=== PATIENT | male | born 1975 | race Caucasian/White ===

== ENCOUNTER 2020-12-09 13:24 | Outpatient (REF) | payer MEDICAID, OTHER, SELFPAY ==
[2020-12-09 13:49] LABS: COVID-19 Test Positive (Negative)
== END 2020-12-09 13:25 | disposition home or self-care (01) ==
LOC: HO.LAB 13:24
PROVIDERS: Visit Provider Internal Medicine
DX: Z20.822 Contact with and (suspected) exposure to COVID-19 (principal)
CPT/HCPCS: 36415; 87635; C9803

== ENCOUNTER 2023-05-19 12:35 | Inpatient (IN) | payer MEDICAID, OTHER, SELFPAY ==
[2023-05-19] VITALS (15 sets, daily range): BP systolic 85–140; BP diastolic 49–68; PULSE 96–120; RESP 12–30; TEMP 36.8–37.3; O2SAT 76–100; BMI 26.1
--- NOTE | 2023-05-19 | ECG_ITS ---
Test Reason : TACHY,ANEMIC Blood Pressure : / mmHG Vent. Rate : 105 BPM Atrial Rate : 105 BPM P-R Int : 164 ms QRS Dur : 106 ms QT Int : 292 ms P-R-T Axes : 048 -15 016 degrees QTc Int : 385 ms Sinus tachycardia RSR' or QR pattern in V1 suggests right ventricular conduction delay Nonspecific T wave abnormality Abnormal ECG No previous ECGs available Referred By: Lili Stewart Electronically Signed By:PADMINI WOODRUFF MD
--- NOTE | ~2023-05-19 | CT_ITS ---
EXAMINATION: CT head/brain wo IV con CLINICAL INFORMATION: Reason for Exam fall. etoh COMPARISON: None. TECHNIQUE: Contiguous axial imaging was performed from the skull base to vertex without intravenous contrast. Sagittal and coronal reformatted images were obtained. This CT examination was performed using dose optimization techniques as appropriate, variously including the following: * Automated exposure control * Adjustment of mA and/or kV according to patient size (this includes techniques or standardized protocols for targeted exams where dose is matched to indication/reason for exam; i.e. extremities or head) Use of iterative reconstruction technique DLP: 933.16 mGy-cm FINDINGS: No acute osseous or soft tissue abnormality. The mastoid air cells and visualized portions of the paranasal sinuses are well aerated. There is no evidence of acute intracranial hemorrhage or territorial infarction. No abnormal mass effect or midline shift is seen. Drew to white matter differentiation is well preserved. No extra-axial fluid collections are identified. No hydrocephalus. No significant volume loss. Patchy periventricular and deep white matter hypoattenuation is consistent with mild small vessel ischemic changes. CT/CT head/brain wo IV con IMPRESSION: No acute intracranial abnormality including hemorrhage, mass effect, hydrocephalus, or acute territorial edematous infarction.
--- NOTE | ~2023-05-19 | CT_ITS ---
EXAMINATION: CT ABDOMEN AND PELVIS WITH CONTRAST CLINICAL INFORMATION: Reason for Exam upper and lower gi bleed COMPARISON: None. TECHNIQUE: Multidetector volumetric imaging was performed from the superior aspect of the liver through the pubic symphysis following administration of 100 mL Omnipaque 300 intravenous contrast. Sagittal and coronal reformatted images were obtained on the technologist workstation.. This CT examination was performed using dose optimization techniques as appropriate, variously including the following: *Automated exposure control *Adjustment of mA and/or kV according to patient size (this includes techniques or standardized protocols for targeted exams where dose is matched to indication/reason for exam; i.e. extremities or head) *Use of iterative reconstruction technique DLP: 527, 414 and 399 mGy-cm FINDINGS: LUNG BASES: The visualized lung bases are unremarkable. LIVER, GALLBLADDER, AND BILIARY TREE: The liver is normal in size, shape, and attenuation. No focal hepatic lesion or biliary ductal dilatation is present. The gallbladder is unremarkable with no evidence of radiopaque gallstones, gallbladder wall thickening, or obvious pericholecystic inflammatory changes. PANCREAS: Unremarkable. SPLEEN: Unremarkable. ADRENAL GLANDS: Unremarkable. KIDNEYS AND URETERS: The kidneys are normal in size, shape, and attenuation. No hydronephrosis, hydroureter, or calculi seen. No perinephric stranding. BLADDER: Unremarkable. GASTROINTESTINAL TRACT: The small and large bowel are without evidence of any active bleeding. No bowel wall thickening. No acute inflammatory changes. No diverticular disease.. Normal appendix. ABDOMINAL WALL: No significant hernia is appreciated. LYMPHOVASCULAR STRUCTURES: No lymphadenopathy. The aorta is unremarkable. PELVIC VISCERA: Unremarkable. OSSEOUS STRUCTURES: Unremarkable. Small amount of free fluid in the pelvis. CT/CT gi bleed abd pel wo/w IVcon IMPRESSION: No evidence of any active GI bleeding. No acute inflammatory changes. Nonspecific trace free fluid in pelvis.
[2023-05-19 12:56] LABS: MANUAL DIFF FLAG NO
[2023-05-19 12:59] LABS: Basophils Percent Auto 0.2 % (0-2); Imm Gran Abs Auto 0.08 X10*3/uL (0.00-0.03); Imm Gran Pct Auto 0.6 % (0.0-0.4); Lymphocytes Percent Auto 8.3 % (20-40); Mean Corpuscular HGB Conc 36.3 g/dl (31.0-36.0); Mean Corpuscular Hemoglobin 32.9 pg (27.0-33.0); Mean Corpuscular Volume 90.8 fL (80.0-98.0); Mean Platelet Volume 11.1 fL (9.4-12.4); Monocytes Absolute Auto 0.8 X10*3/uL (0.1-1.2); Monocytes Percent Auto 6.7 % (2-11); Neutrophils Absolute Auto 10.6 x10*3/uL (2.0-8.3); Neutrophils Percent Auto 84.2 % (45-73); Platelet Count 127 X10*3/uL (160-400); Red Blood Count 1.73 X10*6/uL (4.60-5.80); Red Cell Distribution Width 12.5 % (11.0-16.0); White Blood Count 12.6 X10*3/uL (4.8-10.8)
[2023-05-19 13:05] LABS: Hemoglobin 5.7 g/dl (14.0-18.0)
[2023-05-19 13:06] LABS: Hematocrit 15.7 % (42.0-52.0)
--- NOTE | 2023-05-19 13:15 | ED.GENADULT ---
HPI - General Adult General Chief complaint: General Medical Stated complaint: AMS D/T ETOH, POC 453 Time Seen by Provider: 05/19/23 13:05 Source: patient Mode of arrival: ambulatory Limitations: no limitations History of Present Illness HPI narrative: Patient comes in the emergency room complaining 3 syncopal episodes over the last couple of days. Patient states that 3 days ago patient started vomiting blood and having black bowel movements. Patient states that he drinks ?couple of beers? every day after work. Patient states that he has not been feeling hungry. Patient denies any significant abdominal pain. Patient states that over the last 2 days, sometimes when he gets up, he feels very lightheaded and has passed out. Twice yesterday, 1 today. Patient states that he does not have any headache, neck pain or any injuries from passing out. Related Data Allergies Allergy/AdvReac Type Severity Reaction Status Date / Time No Known Allergies Allergy Verified 05/19/23 13:00 Review of Systems Review of Systems: Constitutional : No Weight loss, No Fever, No Chills, No Night Sweats, No Fatigue, No Malaise ENT/Mouth : No Hearing loss, No Ear Pain, No Nasal Congestion, No Sinus Pain, No Hoarseness, No sore throat, No Rhinorrhea, No Swallowing Difficulty Eyes: No Eye Pain, No Swelling, No Redness, No Foreign Body, No Discharge, No Vision Changes Cardiovascular : No Chest Pain, No SOB, No Dyspnea on Exertion, No Orthopnea, No Edema, No Palpitations Respiratory : No Cough, No Sputum, No Wheezing, No Smoke Exposure, No Dyspnea Gastrointestinal : Complaining of nausea vomiting and diarrhea, vomiting and diarrhea black in color Genitourinary : no irregular bleeding, No Dysuria, No Urinary Frequency, No Hematuria, No Urinary Incontinence, No Urgency, No Flank Pain, No Urinary Flow Changes, No Hesitancy Musculoskeletal : No joint pain, No Myalgias, No Joint Swelling Skin : No Skin Lesions, No rash Neuro : No Weakness, No Numbness, No Paresthesias, multiple syncopal episodes Psych : No Anxiety/Panic, No Depression, No SI/HI/AH/VH, No Social Issues, Heme/Lymph: No Bruising, No Bleeding,No Lymphadenopathy Endocrine : No Polyuria, No Polydipsia, No Temperature Intolerance PMFSH Past Medical History Medical History Alcohol abuse Diabetes Social History Social History Alcohol intake: current Advance Directives: No Advance Directives Information Provided: No Physical Exam ED Vital Signs: Vital Signs - 24 hr 05/19/23 12:54 05/19/23 13:39 05/19/23 14:34 Temperature 99.1 F 98.7 F Pulse Rate 114 H 103 H 108 H Respiratory Rate 20 30 H 24 H Blood Pressure 86/50 L 109/66 85/49 L Pulse Oximetry 100 99 Oxygen Delivery Method Room Air Room Air 05/19/23 14:59 05/19/23 15:48 05/19/23 16:47 Temperature 98.9 F 98.8 F 99.0 F Pulse Rate 104 H 106 H 117 H Respiratory Rate 28 H 22 H 18 Blood Pressure 114/62 107/55 L 120/62 Pulse Oximetry 99 99 Oxygen Delivery Method Room Air Room Air BMI result Body Mass Index 26.1 Const Other: Appearance: Alert. Oriented X3. No acute distress. Eyes: Pupils equal, round and reactive to light. Scleral icterus bilateral ENT: Pharynx normal. Neck: Normal inspection. Neck supple. No lymph nodes noted. No crepitus CVS: Tachycardic, heart rate in the 130s, S1-S2 Respiratory: No respiratory distress. Breath sounds normal. No Wheezing. No rales Abdomen: Soft and nontender. No rigidity. No distention. Digital rectal exam shows black stool Skin: Skin warm and dry. Normal skin color. Normal skin turgor. Extremities: No lower extremity edema. No Lacerations. No Rash Neuro: Oriented X 3. No motor deficit. No sensory deficit. Moving all extremities. No slurred speech. CN 2 through 12 grossly intact Psych: calm, cooperative, normal affect Course Course Course Narrative: -patient arriving hypotensive tachycardic, with recent history of coffee-ground emesis and black stool, history of alcoholism, patient very likely has a GI bleed. All of patient's labs and imaging pending, fluids running. -I discussed with the patient risks versus benefits of a blood transfusion, patient agrees to have the blood transfusion and signed the consent Medications Administered Discontinued Medications Generic Name Dose Route Start Last Admin Trade Name Freq PRN Reason Stop Dose Admin Sodium Chloride 1,000 mls @ 999 mls/hr 05/19/23 13:05 05/19/23 15:39 Ns IVCONT 05/19/23 14:05 Infused .Q1H1M ONE Infusion Sodium Chloride 100 mls @ 100 mls/hr 05/19/23 13:08 05/19/23 15:39 Ns IV 05/19/23 14:07 Infused ONCE ONE Infusion Potassium Chloride 10 meq in 100 mls @ 100 mls/hr 05/19/23 13:45 05/19/23 16:47 Potassium Chloride/H20 IV 05/19/23 17:44 100 mls/hr Q1H JONAH Administration Magnesium Sulfate 2 gm in 50 mls @ 25 mls/hr 05/19/23 13:46 05/19/23 14:14 Magnesium Sulfate/H2o IV 05/19/23 15:45 25 mls/hr ONCE ONE Administration Insulin Human Regular 5 unit 05/19/23 13:35 05/19/23 14:15 Insulin Regular, Human 100 Unit/Ml 3 Ml Vial IVPUSH 05/19/23 13:36 5 unit ONCE ONE Administration Iohexol 80 ml 05/19/23 14:21 05/19/23 14:22 Iohexol 350 Mg/Ml 100 Ml Infus..Btl IV 05/19/23 14:22 80 ml ONCE ONE Administration Octreotide Acetate 50 mcg 05/19/23 13:07 05/19/23 13:27 Octreotide Acetate 100 Mcg/Ml Ampul IVPUSH 05/19/23 13:08 50 mcg ONCE ONE Administration Ondansetron HCl 4 mg 05/19/23 13:14 05/19/23 13:27 Ondansetron Hcl 4 Mg/2 Ml Vial IVPUSH 05/19/23 13:15 4 mg ONCE ONE Administration Pantoprazole Sodium 80 mg 05/19/23 13:07 05/19/23 13:27 Pantoprazole Sodium 40 Mg/10 Ml Vial IVPUSH 05/19/23 13:08 80 mg ONCE ONE Administration Medical Decision Making Medical Decision Making MDM Narrative: -my interpretation of labs: Hemoglobin 5.7, hematocrit 15.7, patient awaiting for blood transfusion. Potassium 2.7, patient will be repleted with potassium piggybacks IV, sodium 119 secondary to alcohol/beer intake. Magnesium 1.3, repleted -before we received the lab results, patient had already been receiving fluids the patient was hypotensive and tachycardic. -patient receiving blood, blood pressure improving, 107/55, heart rate 106, respirations 22, tolerating blood transfusion well -patient's chemistry was recheck, a 17:00, patient's sodium is 123. -I discussed the patient with Dr. Charles [facility], recommendations: Continue Protonix and octreotide, start ceftriaxone, possible ICU admission -I discussed the patient with Dr. Omalley from ICU and Dr. 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 05/19/23 12:53 05/19/23 16:54 Labs: Lab Results 05/19/23 05/19/23 05/19/23 Range/Units 12:53 13:04 13:17 WBC 12.6 H (4.8-10.8) X10*3/uL RBC 1.73 L (4.60-5.80) X10*6/uL Hgb 5.7 L* (14.0-18.0) g/dl Hct 15.7 L* (42.0-52.0) % MCV 90.8 (80.0-98.0) fL MCH 32.9 (27.0-33.0) pg MCHC 36.3 H (31.0-36.0) g/dl RDW 12.5 (11.0-16.0) % Plt Count 127 L (160-400) X10*3/uL MPV 11.1 (9.4-12.4) fL Immature Gran % (Auto) 0.6 H (0.0-0.4) % Neut % (Auto) 84.2 H (45-73) % Lymph % (Auto) 8.3 L (20-40) % Dickens % (Auto) 6.7 (2-11) % Eos % (Auto) 0.0 (0-4) % Baso % (Auto) 0.2 (0-2) % Lymph # (Auto) 1.0 L (1.2-4.9) X10*3/uL Dickens # (Auto) 0.8 (0.1-1.2) X10*3/uL Eos # (Auto) 0.0 (0.0-0.4) X10*3/uL Baso # (Auto) 0.0 (0.0-0.2) X10*3/uL Abs Immat Gran (auto) 0.08 H (0.00-0.03) X10*3/uL Absolute Neuts (auto) 10.6 H (2.0-8.3) x10*3/uL Absolute Nucleated RBC 0.000 (0.0-0.012) X10*3/uL Nucleated RBC % (auto) 0.0 (0.0-0.2) /100WBC PT 16.8 H (11.1-13.3) SEC INR 1.4 H (0.9-1.1) APTT 32.4 (26.0-36.4) SEC Sodium 119 L* (135-145) mmol/L Potassium 2.7 L (3.3-5.1) mmol/L Chloride 73 L (96-108) mmol/L Carbon Dioxide 23 (22-29) mmol/L Anion Gap 26 H (12-20) BUN 15 (9-16) mg/dL Creatinine 0.67 (0.5-1.4) mg/dL Estim Creat Clear Calc 137.7 Estimated GFR > 60 POC Glucose 361 H* (60-115) mg/dL Random Glucose 368 H* (60-115) mg/dL Calcium 8.0 L (8.4-10.2) mg/dL Magnesium 1.3 L* (1.6-2.6) mg/dL Total Bilirubin 2.1 H (0.0-1.0) mg/dL Direct Bilirubin 1.2 H (0.0-0.5) mg/dL AST 100 H (5-37) U/L ALT 31 (0-40) U/L Alkaline Phosphatase 121 H (39-117) U/L Troponin I High Sens 6.8 (<3.5-35.0) ng/L Total Protein 6.1 L (6.5-8.0) g/dL Albumin 2.7 L (3.5-5.0) g/dL Lipase 13 (8-78) U/L Urine Color Urine Appearance Urine pH (5.0-9.0) Ur Specific [place] (1.005-1.025) Urine Protein (Neg-Trace) mg/dL Urine Glucose (UA) (Negative) mg/dL Urine Ketones (Negative) mg/dL Urine Blood (Negative) Urine Nitrite (Negative) Ur Leukocyte Esterase (Negative) Urine RBC (0-2) /HPF Urine WBC (0-5) /HPF Ur Squamous Epith Cells (0-2) /HPF Urine Bacteria (None Seen) Hyaline Casts (0-2) /LPF Stool Occult Blood (NEGATIVE) Ethyl Alcohol 181 mg/dL Blood Type Antibody Screen Crossmatch 05/19/23 05/19/23 05/19/23 Range/Units 13:20 13:29 15:52 WBC (4.8-10.8) X10*3/uL RBC (4.60-5.80) X10*6/uL Hgb (14.0-18.0) g/dl Hct (42.0-52.0) % MCV (80.0-98.0) fL MCH (27.0-33.0) pg MCHC (31.0-36.0) g/dl RDW (11.0-16.0) % Plt Count (160-400) X10*3/uL MPV (9.4-12.4) fL Immature Gran % (Auto) (0.0-0.4) % Neut % (Auto) (45-73) % Lymph % (Auto) (20-40) % Dickens % (Auto) (2-11) % Eos % (Auto) (0-4) % Baso % (Auto) (0-2) % Lymph # (Auto) (1.2-4.9) X10*3/uL Dickens # (Auto) (0.1-1.2) X10*3/uL Eos # (Auto) (0.0-0.4) X10*3/uL Baso # (Auto) (0.0-0.2) X10*3/uL Abs Immat Gran (auto) (0.00-0.03) X10*3/uL Absolute Neuts (auto) (2.0-8.3) x10*3/uL Absolute Nucleated RBC (0.0-0.012) X10*3/uL Nucleated RBC % (auto) (0.0-0.2) /100WBC PT (11.1-13.3) SEC INR (0.9-1.1) APTT (26.0-36.4) SEC Sodium (135-145) mmol/L Potassium (3.3-5.1) mmol/L Chloride (96-108) mmol/L Carbon Dioxide (22-29) mmol/L Anion Gap (12-20) BUN (9-16) mg/dL Creatinine (0.5-1.4) mg/dL Estim Creat Clear Calc Estimated GFR POC Glucose (60-115) mg/dL Random Glucose (60-115) mg/dL Calcium (8.4-10.2) mg/dL Magnesium (1.6-2.6) mg/dL Total Bilirubin (0.0-1.0) mg/dL Direct Bilirubin (0.0-0.5) mg/dL AST (5-37) U/L ALT (0-40) U/L Alkaline Phosphatase (39-117) U/L Troponin I High Sens (<3.5-35.0) ng/L Total Protein (6.5-8.0) g/dL Albumin (3.5-5.0) g/dL Lipase (8-78) U/L Urine Color Yellow Urine Appearance Clear Urine pH 6.5 (5.0-9.0) Ur Specific [place] >= 1.030 H (1.005-1.025) Urine Protein Negative (Neg-Trace) mg/dL Urine Glucose (UA) 500 H (Negative) mg/dL Urine Ketones 15 (Negative) mg/dL Urine Blood Trace H (Negative) Urine Nitrite Negative (Negative) Ur Leukocyte Esterase Negative (Negative) Urine RBC 0-2 (0-2) /HPF Urine WBC 0-5 (0-5) /HPF Ur Squamous Epith Cells 0-2 (0-2) /HPF Urine Bacteria None Seen (None Seen) Hyaline Casts 0-2 (0-2) /LPF Stool Occult Blood POSITIVE (NEGATIVE) Ethyl Alcohol mg/dL Blood Type O Positive Antibody Screen NEGATIVE Crossmatch See Detail 05/19/23 Range/Units 16:54 WBC (4.8-10.8) X10*3/uL RBC (4.60-5.80) X10*6/uL Hgb (14.0-18.0) g/dl Hct (42.0-52.0) % MCV (80.0-98.0) fL MCH (27.0-33.0) pg MCHC (31.0-36.0) g/dl RDW (11.0-16.0) % Plt Count (160-400) X10*3/uL MPV (9.4-12.4) fL Immature Gran % (Auto) (0.0-0.4) % Neut % (Auto) (45-73) % Lymph % (Auto) (20-40) % Dickens % (Auto) (2-11) % Eos % (Auto) (0-4) % Baso % (Auto) (0-2) % Lymph # (Auto) (1.2-4.9) X10*3/uL Dickens # (Auto) (0.1-1.2) X10*3/uL Eos # (Auto) (0.0-0.4) X10*3/uL Baso # (Auto) (0.0-0.2) X10*3/uL Abs Immat Gran (auto) (0.00-0.03) X10*3/uL Absolute Neuts (auto) (2.0-8.3) x10*3/uL Absolute Nucleated RBC (0.0-0.012) X10*3/uL Nucleated RBC % (auto) (0.0-0.2) /100WBC PT (11.1-13.3) SEC INR (0.9-1.1) APTT (26.0-36.4) SEC Sodium 123 L (135-145) mmol/L Potassium 2.7 L (3.3-5.1) mmol/L Chloride 80 L (96-108) mmol/L Carbon Dioxide 25 (22-29) mmol/L Anion Gap 21 H (12-20) BUN 13 (9-16) mg/dL Creatinine 0.56 (0.5-1.4) mg/dL Estim Creat Clear Calc 164.8 Estimated GFR > 60 POC Glucose (60-115) mg/dL Random Glucose 252 H (60-115) mg/dL Calcium 7.4 L D (8.4-10.2) mg/dL Magnesium (1.6-2.6) mg/dL Total Bilirubin (0.0-1.0) mg/dL Direct Bilirubin (0.0-0.5) mg/dL AST (5-37) U/L ALT (0-40) U/L Alkaline Phosphatase (39-117) U/L Troponin I High Sens (<3.5-35.0) ng/L Total Protein (6.5-8.0) g/dL Albumin (3.5-5.0) g/dL Lipase (8-78) U/L Urine Color Urine Appearance Urine pH (5.0-9.0) Ur Specific [place] (1.005-1.025) Urine Protein (Neg-Trace) mg/dL Urine Glucose (UA) (Negative) mg/dL Urine Ketones (Negative) mg/dL Urine Blood (Negative) Urine Nitrite (Negative) Ur Leukocyte Esterase (Negative) Urine RBC (0-2) /HPF Urine WBC (0-5) /HPF Ur Squamous Epith Cells (0-2) /HPF Urine Bacteria (None Seen) Hyaline Casts (0-2) /LPF Stool Occult Blood (NEGATIVE) Ethyl Alcohol mg/dL Blood Type Antibody Screen Crossmatch Independent Interpretation I performed an independent interpretation of an: CT Scan (Interpretation of CT scan of the abdomen: No obvious GI bleed) Radiology Impression Discussion of test interpretation with radiology: I have reviewed the radiologist's reading. Radiologist Impression: FINDINGS: LUNG BASES: The visualized lung bases are unremarkable. LIVER, GALLBLADDER, AND BILIARY TREE: The liver is normal in size, shape, and attenuation. No focal hepatic lesion or biliary ductal dilatation is present. The gallbladder is unremarkable with no evidence of radiopaque gallstones, gallbladder wall thickening, or obvious pericholecystic inflammatory changes. PANCREAS: Unremarkable. SPLEEN: Unremarkable. ADRENAL GLANDS: Unremarkable. KIDNEYS AND URETERS: The kidneys are normal in size, shape, and attenuation. No hydronephrosis, hydroureter, or calculi seen. No perinephric stranding. BLADDER: Unremarkable. GASTROINTESTINAL TRACT: The small and large bowel are without evidence of any active bleeding. No bowel wall thickening. No acute inflammatory changes. No diverticular disease.. Normal appendix. ABDOMINAL WALL: No significant hernia is appreciated. LYMPHOVASCULAR STRUCTURES: No lymphadenopathy. The aorta is unremarkable. PELVIC VISCERA: Unremarkable. OSSEOUS STRUCTURES: Unremarkable. Small amount of free fluid in the pelvis. CT/CT gi bleed abd pel wo/w IVcon IMPRESSION: No evidence of any active GI bleeding. No acute inflammatory changes. Nonspecific trace free fluid in pelvis. Critical Care Time Critical Care Time Critical Care Time: Yes Total Critical Care Time: 120 Attestation: I have personally provided critical care time. Time includes review of lab data, radiology results, discussion with consultants, and monitoring for potential decompensation. Intervention performed as documented. Discharge Plan Discharge Clinical Impression: GI bleed, Anemia, Acute hyponatremia, Acute hypokalemia, Hypomagnesemia, Acute hyperglycemia, Syncope Patient Disposition: Admitted As Inpatient
[2023-05-19] MEDS: 0.9 % Sodium Chloride 1,000 ML 999 ML IVCONT (13:24)
[2023-05-19 13:25] LABS: OBS Int Ctl Valid YES; OBS1 POSITIVE (NEGATIVE)
[2023-05-19] MEDS: Pantoprazole Sodium 40 MG/10 ML VIAL 80 MG IVPUSH (13:27)
[2023-05-19] MEDS: ondansetron HCL 4 MG/2 ML VIAL IVPUSH (13:27)
[2023-05-19] MEDS: Octreotide Acetate 100 MCG/ML AMPUL 50 MCG IVPUSH (13:27)
[2023-05-19 13:30] LABS: INTERNATIONAL NORM RATIO 1.4 (0.9-1.1); Prothrombin Time 16.8 SEC (11.1-13.3)
[2023-05-19 13:32] LABS: Partial Thromboplastin Time 32.4 SEC (26.0-36.4)
[2023-05-19 13:35] LABS: Alanine Aminotransferase 31 U/L (0-40); Albumin Level 2.7 g/dL (3.5-5.0); Alkaline Phosphatase 121 U/L (39-117); Anion Gap 26 (12-20); Aspartate Amino Transferase 100 U/L (5-37); Bilirubin Direct 1.2 mg/dL (0.0-0.5); Bilirubin Total 2.1 mg/dL (0.0-1.0); Blood Urea Nitrogen 15 mg/dL (9-16); Carbon Dioxide 23 mmol/L (22-29); Chloride 73 mmol/L (96-108); Creatinine Clr Calc Pharmacy 137.7; Estimated Glomerular Filt Rate > 60; Glucose Random 368 mg/dL (60-115); Lipase 13 U/L (8-78); Potassium 2.7 mmol/L (3.3-5.1); Sodium 119 mmol/L (135-145); Total Protein 6.1 g/dL (6.5-8.0)
[2023-05-19 13:46] LABS: Ethanol 181 mg/dL; Magnesium 1.3 mg/dL (1.6-2.6)
[2023-05-19 13:50] LABS: Troponin-I High Sensitivity 6.8 ng/L (<3.5-35.0)
--- NOTE | 2023-05-19 13:59 | PC.NURSE ---
bilateral IV's in patient's AC. fluids infusing. pt taken to ct scan at this time. consent for blood signed
[2023-05-19] MEDS: Potassium Chloride/H20 10 MEQ/100 ML PIGGYBACK 100 MEQ IV ×6 (14:14→23:02)
[2023-05-19] MEDS: Magnesium Sulfate/H2O 2 GM/50 ML PIGGYBACK IV (14:14)
[2023-05-19] MEDS: Insulin Regular, Human 100 UNIT/ML 3 ML VIAL IVPUSH (14:15)
[2023-05-19] MEDS: iohexoL 350 MG/ML 100 ML INFUS..BTL 80 ML IV (14:22)
--- NOTE | 2023-05-19 14:26 | PC.NURSE ---
remains alert and oriented, talking on phone in room. awaiting results of ct scan. medicated per the MAR - magnesium, potassium, and fluids infusing at this time.
--- NOTE | 2023-05-19 14:51 | PC.NURSE ---
first unit of blood infusing, patient showing no signs/symptoms of distress at this time. resting quietly in room
--- NOTE | 2023-05-19 15:49 | PC.NURSE ---
pt with this RN to use commode, unsteady on feet. loose dark stool in commode, utilized urinal as well. second bag of potassium running. patient continues to rest quietly in bed with first unit infusing.
[2023-05-19 16:10] LABS: Appearance Urine Clear; Color Urine Yellow; Glucose Urine UA 500 mg/dL (Negative); Leukocyte Esterase Urine Negative (Negative); Nitrite Urine Negative (Negative); PH 6.5 (5.0-9.0); Specific Gravity - Urine >= 1.030 (1.005-1.025); UMIC TRIGGER UACC YES; Urine Blood Trace (Negative); Urine Ketones 15 mg/dL (Negative); Urine Protein Negative (Neg-Trace)
[2023-05-19 16:15] LABS: Bacteria Urine None Seen (None Seen); Hyaline Casts Urine 0-2 /LPF (0-2); RBC Urine 0-2 /HPF (0-2); Squamous Epithelial Cell Urine 0-2 /HPF (0-2); WBC Urine 0-5 /HPF (0-5)
[2023-05-19 16:43] LABS: Glucose, Whole Blood 361 mg/dL (60-115)
[2023-05-19 17:15] LABS: Anion Gap 21 (12-20); Blood Urea Nitrogen 13 mg/dL (9-16); Calcium 7.4 mg/dL (8.4-10.2); Carbon Dioxide 25 mmol/L (22-29); Chloride 80 mmol/L (96-108); Creatinine Clr Calc Pharmacy 164.8; Estimated Glomerular Filt Rate > 60; Glucose Random 252 mg/dL (60-115); Potassium 2.7 mmol/L (3.3-5.1); Sodium 123 mmol/L (135-145)
[2023-05-19] MEDS: Prochlorperazine Edisylate 10 MG/2 ML VIAL IVPUSH (19:00)
--- NOTE | 2023-05-19 19:17 | PC.NURSE ---
This Rn spoke with pharmacy regarding overdue medications and timing as potassium and blood is currently running in the two IV lines established. Pharmacy requested RN to call once those orders are complete to adjust times.
[2023-05-19 19:24] LABS: Amphetamine Screen Urine Not Detected (Not Detect); Barbiturates, Urine Not Detected (Not Detect); Benzodiazepines Screen Urine Not Detected (Not Detect); Cannabinoid Screen Urine Not Detected (Not Detect); Cocaine Screen Urine Not Detected (Not Detect); Fentanyl, urine Not Detected (Not Detect); Opiate Screen Urine Not Detected (Not Detect); Phencyclidine Screen Urine Not Detected (Not Detect)
--- NOTE | 2023-05-19 19:27 | PC.NURSE ---
second unit of blood infusing at this time, medicated per the MAR for nausea
--- NOTE | 2023-05-19 19:45 | PM.IMHP ---
History of Present Illness Date of Service: 05/19/23 Attending physician on admission: Violetta Sosa Chief Complaint: Syncopal episodes, hematemesis Pt is a Romansh-speaking 47-year-old male with a PMH significant for?insulin-dependent diabetes type 2 andHLD who presents to the ED for evaluation of syncopal episodes and vomiting blood. Patient states that symptoms began a few days ago when he started vomiting blood and having dark colored bowel movements. Patient reports 3 separate episodes of hematemesis, and having ?mixed? black and red stool. Patient has also been experiencing lightheadedness and dizziness with standing the past few days. Notes he has fallen twice yesterday and once today. Patient states he hit his head during one fall on a box that hold his change and received a small cut to the back of his head. Denies LOC. patient admits to drinking up to four Downing Lite beers daily. Denies any other alcohol use, hx of smoking, or illicit drug use. Also reports mild abdominal discomfort/tenderness. In the ED patient with temperature up to 99.1, tachycardia up to 117, tachypnea up to 30, hypotension as low as 85/49. Labs were significant for leukocytosis of 12.6, H&H 5.7/15.7, platelets 127, sodium 119, potassium 2.7, chloride 73, anion gap 26, random glucose 368, magnesium 1.3, bilirubin 2.1, direct bilirubin 1.2, AST 100, alk-phos 121, albumin 2.7. Troponin 6.8. UA negative for UTI. Stool positive for occult blood. Ethyl alcohol 181 at 13:17, otherwise tox screen negative. CT of abdomen and pelvis found no evidence of any acute GI bleeding with no and acute inflammatory changes and nonspecific trace free fluid in the pelvis. Liver is normal in size, shape, and attenuation. EKG demonstrated sinus tachycardia of [address] elevations or depressions. Pt was treated with IVF, IV Protonix, octreotide, ondansetron, potassium chloride, Mag sulfate, insulin, and prochlorperazine. Patient also transfused 2 units of PRBCs. Pt will be admitted to the hospital for treatment and further evaluation of acute blood loss anemia and multiple electrolyte abnormalities. Review of Systems Review of Systems: Hematemesis Melena/hematochezia Lightheadedness, dizziness Mild, diffuse abdominal pain PMFSH Medical History Alcohol abuse Diabetes Social History Household Members: Family Housing: House Do you presently have visiting nurse or other home services: No Alcohol intake: current Patient Tobacco Use Status: Never used Tobacco Second Hand Smoke Exposure: No Meds Allergies Allergy/AdvReac Type Severity Reaction Status Date / Time No Known Allergies Allergy Verified 05/19/23 13:00 Active Medications: Current Medications Acetaminophen (Acetaminophen 325 Mg Tablet) 650 mg PO Q6H PRN PRN Reason: Pain, Mild (Pain Scale 1-3) Atorvastatin Calcium (Atorvastatin Calcium 40 Mg Tablet) 40 mg PO DAILY JONAH Benzonatate (Benzonatate 100 Mg Capsule) 100 mg PO TID PRN PRN Reason: Cough Docusate Sodium (Docusate Sodium 100 Mg Capsule) 100 mg PO DAILY PRN PRN Reason: Constipation Octreotide Acetate 500 mcg/ (Sodium Chloride) 501 mls @ 50.1 mls/hr IVCONT .Q10H JONAH Pantoprazole Sodium 80 mg/ (Sodium Chloride) 100 mls @ 10 mls/hr IV .Q10H JONAH Potassium Chloride (Potassium Chloride/H20) 10 meq in 100 mls @ 100 mls/hr IV Q1H JONAH Stop: 05/19/23 23:29 Melatonin (Melatonin 3 Mg Tablet) 6 mg PO BEDTIME PRN PRN Reason: Insomnia Ondansetron HCl (Ondansetron Hcl 4 Mg/2 Ml Vial) 4 mg IVPUSH Q8H PRN PRN Reason: Nausea and Vomiting Pharmacy Consult (Consult Rx Etoh Phenob Im/Po) 1 each MISCELLANE ONCE PRN; Protocol PRN Reason: Consult order Phenobarbital (Phenobarbital 15 Mg Tablet) 45 mg PO BID JONAH Stop: 05/21/23 21:01 Phenobarbital (Phenobarbital 30 Mg Tablet) 30 mg PO BID JONAH Stop: 05/23/23 21:01 Phenobarbital (Phenobarbital 15 Mg Tablet) 15 mg PO DAILY JONAH Stop: 05/25/23 09:01 Phenobarbital Sodium (Phenobarbital Sodium 130 Mg/Ml Vial Im Q3hx2) 254 mg IM Q3H JONAH Stop: 05/20/23 02:01 Sodium Chloride (0.9 % Sodium Chloride Flush 3 Ml Syringe) 3 ml IVFLUSH QSHIFT [facility] Home Medications Medication Instructions Recorded Confirmed Last Taken Type atorvastatin 40 mg tablet 40 mg PO DAILY 05/19/23 05/19/23 Unknown History insulin glargine 100 unit/mL (3 52 unit subcut DAILY 05/19/23 05/19/23 Unknown History mL) subcutaneous pen (Lantus Solostar U-100 Insulin) insulin lispro 100 unit/mL See Protocol subcut BIDAC 05/19/23 05/19/23 Unknown History subcutaneous pen Physical Exam Vital Signs and Narrative: Vital Signs: Last Vital Signs Temp 99.1 F 05/19/23 19:30 Pulse 109 H 05/19/23 19:30 Resp 12 05/19/23 19:30 BP 130/63 05/19/23 19:30 Pulse Ox 99 05/19/23 16:47 O2 Del Method Room Air 05/19/23 16:47 BMI result Body Mass Index 26.1 Constitutional: Alert, in no acute distress. Mental Status: Oriented to person, place and time. Eyes: Pupils are equal, round, and reactive to light. Ear, Nose, and Throat: Oropharynx clear, mucous membranes moist. Ears and nose without deformities. Trachea midline. Head: Small superficial bleeding laceration in center of occipital lobe Respiratory: Clear to auscultation bilaterally. No wheezing, rales, or rhonchi. Cardiovascular: S1, S2, tachy. No murmurs, rubs, or gallops. Gastrointestinal: Abdomen soft, non-distended, with mild diffuse tenderness. Normal bowel sounds. Neurologic: Cranial nerves II-XII are grossly intact bilaterally. No focal neurological deficits. Moves all extremities spontaneously. Upper extremity resting tremors noted. Skin: No rashes or lesions noted. Musculoskeletal: No cyanosis or clubbing. Extremities: No edema. Psychiatric: Normal mood and affect. Results Labs 05/20/23 11:25 05/20/23 11:25 Labs: Laboratory Results - last 24 hr 05/19/23 05/19/23 05/19/23 12:53 13:04 13:17 MCV 90.8 MCH 32.9 MCHC 36.3 H RDW 12.5 Plt Count 127 L MPV 11.1 Immature Gran % (Auto) 0.6 H Neut % (Auto) 84.2 H Lymph % (Auto) 8.3 L [place] % (Auto) 6.7 Eos % (Auto) 0.0 Baso % (Auto) 0.2 Lymph # (Auto) 1.0 L [place] # (Auto) 0.8 Eos # (Auto) 0.0 Baso # (Auto) 0.0 Abs Immat Gran (auto) 0.08 H Absolute Neuts (auto) 10.6 H Absolute Nucleated RBC 0.000 Nucleated RBC % (auto) 0.0 PT 16.8 H INR 1.4 H APTT 32.4 Anion Gap 26 H Estim Creat Clear Calc 137.7 Estimated GFR > 60 POC Glucose 361 H* Random Glucose 368 H* Osmolality Cancelled Calcium 8.0 L Magnesium 1.3 L* Total Bilirubin 2.1 H Direct Bilirubin 1.2 H AST 100 H ALT 31 Alkaline Phosphatase 121 H Total Protein 6.1 L Albumin 2.7 L Lipase 13 Urine Color Urine Appearance Urine pH Ur Specific [place] Urine Protein Urine Glucose (UA) Urine Ketones Urine Blood Urine Nitrite Ur Leukocyte Esterase Urine RBC Urine WBC Ur Squamous Epith Cells Urine Bacteria Hyaline Casts Stool Occult Blood Urine Opiates Screen Urine Fentanyl Screen Ur Barbiturates Screen Ur Phencyclidine Scrn Ur Amphetamines Screen U Benzodiazepines Scrn Urine Cocaine Screen U Marijuana (THC) Screen Ethyl Alcohol 181 Blood Type Antibody Screen Crossmatch 05/19/23 05/19/23 05/19/23 13:20 13:29 15:52 MCV MCH MCHC RDW Plt Count MPV Immature Gran % (Auto) Neut % (Auto) Lymph % (Auto) [place] % (Auto) Eos % (Auto) Baso % (Auto) Lymph # (Auto) [place] # (Auto) Eos # (Auto) Baso # (Auto) Abs Immat Gran (auto) Absolute Neuts (auto) Absolute Nucleated RBC Nucleated RBC % (auto) PT INR APTT Anion Gap Estim Creat Clear Calc Estimated GFR POC Glucose Random Glucose Osmolality Calcium Magnesium Total Bilirubin Direct Bilirubin AST ALT Alkaline Phosphatase Total Protein Albumin Lipase Urine Color Yellow Urine Appearance Clear Urine pH 6.5 Ur Specific [place] >= 1.030 H Urine Protein Negative Urine Glucose (UA) 500 H Urine Ketones 15 Urine Blood Trace H Urine Nitrite Negative Ur Leukocyte Esterase Negative Urine RBC 0-2 Urine WBC 0-5 Ur Squamous Epith Cells 0-2 Urine Bacteria None Seen Hyaline Casts 0-2 Stool Occult Blood POSITIVE Urine Opiates Screen Not Detected Urine Fentanyl Screen Not Detected Ur Barbiturates Screen Not Detected Ur Phencyclidine Scrn Not Detected Ur Amphetamines Screen Not Detected U Benzodiazepines Scrn Not Detected Urine Cocaine Screen Not Detected U Marijuana (THC) Screen Not Detected Ethyl Alcohol Blood Type O Positive Antibody Screen NEGATIVE Crossmatch See Detail 05/19/23 16:54 MCV MCH MCHC RDW Plt Count MPV Immature Gran % (Auto) Neut % (Auto) Lymph % (Auto) [place] % (Auto) Eos % (Auto) Baso % (Auto) Lymph # (Auto) [place] # (Auto) Eos # (Auto) Baso # (Auto) Abs Immat Gran (auto) Absolute Neuts (auto) Absolute Nucleated RBC Nucleated RBC % (auto) PT INR APTT Anion Gap 21 H Estim Creat Clear Calc 164.8 Estimated GFR > 60 POC Glucose Random Glucose 252 H Osmolality Calcium 7.4 L D Magnesium Total Bilirubin Direct Bilirubin AST ALT Alkaline Phosphatase Total Protein Albumin Lipase Urine Color Urine Appearance Urine pH Ur Specific [place] Urine Protein Urine Glucose (UA) Urine Ketones Urine Blood Urine Nitrite Ur Leukocyte Esterase Urine RBC Urine WBC Ur Squamous Epith Cells Urine Bacteria Hyaline Casts Stool Occult Blood Urine Opiates Screen Urine Fentanyl Screen Ur Barbiturates Screen Ur Phencyclidine Scrn Ur Amphetamines Screen U Benzodiazepines Scrn Urine Cocaine Screen U Marijuana (THC) Screen Ethyl Alcohol Blood Type Antibody Screen Crossmatch Imaging Radiologist's Impressions: Impressions Abdomen/Pelvis CT 05/19/23 14:23 IMPRESSION: No evidence of any active GI bleeding. No acute inflammatory changes. Nonspecific trace free fluid in pelvis. Assessment and Plan (1) Acute hyperglycemia: Status: Acute (2) Hypomagnesemia: Status: Acute (3) Acute hyponatremia: Status: Acute (4) Acute hypokalemia: Status: Acute (5) Anemia: Status: Acute (6) GI bleed: Status: Acute Plan Pt is a Romansh-speaking 47-year-old male with a PMH significant for?insulin-dependent diabetes type 2 andHLD who presents to the ED for evaluation of syncopal episodes and vomiting blood. Pt will be admitted to the hospital for treatment and further evaluation of acute blood loss anemia and multiple electrolyte abnormalities. Acute blood loss anemia secondary to GI bleed Patient with hematemesis, melena/hematochezia x 2-3 days Patient's H&H 5.7/15.7, platelets 127, hypotensive as low as 85/49, stool positive for occult blood Patient given IVF, Protonix, octreotide, ondansetron, and transfuse 2 units PRBCs in ED Will place on octreotide drip, IV Protonix drip NPO GI consult ICU consult for care level Repeat CBC later tonight, follow tomorrow Hyponatremia Patient's sodium initially 119 with repeat 4 hours later of 123 Patient will be made NPO Will get serum osmolality, urine osmolality, urine sodium, urine electrolytes Follow BMP Hypokalemia Patient's potassium 2.7 with repeat 4 hours later of 2.7 Patient received 40 mEq IV potassium in ED Will give additional 40 mEq potassium IV Follow BMP Hypomagnesemia Patient's magnesium 1.3 at time of presentation Patient given Mag sulfate 2 g in ED Trend Mag Syncopal episodes with head strike Patient with small superficial laceration to the back of his skull Will get CT of head and brain Hyperglycemia Patient's random glucose 368 at time of presentation Given insulin in ED Will place on sliding scale insulin Hold long-acting insulin for now as patient is NPO, resume Lantus as warranted Diabetic diet once no longer NPO Leukocytosis WBC 12.6 time of presentation Likely reactionary acute anemia, not due to sepsis or active infection Tachycardia and tachypnea secondary to acute blood loss anemia, not sepsis or active infection Acute alcohol withdrawal Patient with daily alcohol intake upper extremity resting tremors noted Patient's alcohol level 181 at time of presentation Patient will be placed on phenobarb protocol CIWA HLD Hold statin d/t transaminitis Full Code Attending:?Dr. Sosa DVT Prophylaxis: Penumatic boots Pt will require a hospitalization of at least two nights for treatment of?acute blood loss anemia due to GI bleed and multiple electrolyte abnormalities. Patient require telemetry monitoring, close monitoring of labs, blood transfusion, electrolyte replenishment, and specialist consultation. Time Spent With Patient Time: Total time managing care of this patient today ____ minutes. Quality Stroke Does the patient have a stroke diagnosis?: No VTE Prior VTE?: No VTE Risk Level:: Medical - moderate - high VTE Device Contraindication: N/A - Device Ordered VTE Drug Contraindication: Treatment Not Indicated
[2023-05-19 19:50] LABS: Osmolality Urine 443 mosm/kg (373-1093)
[2023-05-19 20:03] LABS: Potassium Urine Random 17.9 mmol/L; Sodium Urine Random < 20.0 mmol/L
--- NOTE | 2023-05-19 20:08 | PC.NURSE ---
Report and handoff given to JORGE Zeng
--- NOTE | 2023-05-19 20:18 | PC.NURSE ---
vss and up to date. 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 pharmacy delivered medication for pt but unable to administer d/t other meds being transfused at this time. will administer/change time of meds when able. pt c/o 05/09 abdominal pain at this time. respirations even and unlabored. call walters placed within reach.
[2023-05-19 21:06] LABS: Chloride Urine Random < 20.0 mmol/L
[2023-05-19] MEDS: cefTRIAXone sodium 1 GM in 0.9 % Sodium Chloride 50 ML IV (21:07)
[2023-05-19] MEDS: PHENobarbitaL sodium 130 MG/ML IM ONCE 339 MG IM (21:08)
--- NOTE | 2023-05-19 21:10 | PC.NURSE ---
pt medicated per provider order.
--- NOTE | 2023-05-19 21:32 | PM.EVENT ---
Event Note Date of Service: 05/19/23 Event Note: Nursing reported seizure-like activity that lasted for approximately 30 seconds. Likely alcohol withdrawal seizure. Ordered Ativan Time Spent With Patient Time: Total time managing care of this patient today ____ minutes.
[2023-05-19] MEDS: LORazepam 2 MG/ML VIAL 1 MG IVPUSH (21:38)
[2023-05-19] MEDS: Phytonadione (Vit K1) 10 MG in 0.9 % Sodium Chloride 50 ML 51 MG IV (21:39)
[2023-05-19] MEDS: Pantoprazole Sodium 80 MG in 0.9 % Sodium Chloride 80 ML 10 MG IV (21:45)
[2023-05-19] MEDS: Octreotide Acetate 500 MCG in 0.9 % Sodium Chloride 500 ML 50.1 MCG IVCONT (21:53)
--- NOTE | 2023-05-19 21:59 | PC.NURSE ---
Late entry: Several infusions ordered noted to be several hours behind. This RN at bedside assuming care, contacting Laron and pharmacy regarding ordered medications. Blood infusing through [facility]. Pt medicated with first dose of Pheno and Rocephin by Azucena PATEL. Two additional IVs placed. Vit K, Potassium, Protonix and Octreotide infusing per SEP. Pharmacy contacted as an additional 4 bags of Potassium were ordered, per pharm they verified with Laron and he stated he wanted the additional 4 bags as his repeat Potassium level remained low. While this RN was at bedside medicating, pt noted to have SZ like activity. Hospitalist contacted, no SZ hx noted. SZ like activity lasting approx 30 seconds. Per Laron, no SZ hx, assuming r/t ETOH w/d, medicated with 1 mg of Ativan per SEP. VSS at this time, pt resting in bed, asleep, eyes closed. Continue to monitor.
--- NOTE | 2023-05-19 22:02 | W.MHC.ACPN ---
Advanced Care Planning Note Advanced Care Planning Note Discussed with: patient Time spent (in minutes): 20 Narrative: Case discussed with my attending Dr Omalley and Dr Sosa requesting hospitalist. Patient seen at bedside in the ER room 9, chart reviewed in detail and labs; images Pending. Patient is hemo dynamically stable despite of anemia, has received IVF and 1 u PRBC, he does not appear to be in distress and I do no suspect decompensation, however if this was to happen we will be happy to intervine and to treat the patient in the ICU if that was to happen and the patient really needed ICU care at that time. Currently the care, workup and treatment should continue as per Internal Medicine Team descretion, this was related in person to Dr Sosa. Total time spend reviewing case, chart, labs and talking breifly to the patient at bedside 20 min. CODE FULL CODE Per patients wish and he appears fully competent as I spoke to him in Peruvian. Problems Discussed (1) Acute hyperglycemia: (2) Hypomagnesemia: (3) Acute hyponatremia: (4) Acute hypokalemia: (5) Anemia: (6) GI bleed:
--- NOTE | 2023-05-19 22:08 | PC.NURSE ---
Pt noted to desat, hospitalist notified. Pt moved into an upright position, wakes easily. O2 applied via NC @ 3 lpm. O2 sat increasing to 100%.
[2023-05-19 22:55] LABS: Glucose, Whole Blood 267 mg/dL (60-115)
[2023-05-19] MEDS: Insulin Lispro 100 UNIT/ML 3 ML VIAL SUBCUT (22:55)
--- NOTE | 2023-05-19 23:27 | PC.NURSE ---
Second unit of blood infused, patient tolerated well. VSS. CIWA score 7, phenobarb administered per MAR.
[2023-05-19] MEDS: PHENobarbitaL sodium 130 MG/ML VIAL IM Q3Hx2 254 MG IM (23:31)
--- NOTE | 2023-05-19 23:48 | PC.NURSE ---
Third unit of PRBC infusing, no transfusion reactions noted. Patient is resting comfortably with his eyes closed. VSS. Call walters within patient's reach.
[2023-05-20] VITALS (20 sets, daily range): BP systolic 97–122; BP diastolic 51–70; PULSE 82–110; RESP 18–26; TEMP 36.5–37.6; O2SAT 90–100
[2023-05-20] MEDS: Potassium Chloride/H20 10 MEQ/100 ML PIGGYBACK 100 MEQ IV ×6 (00:17→13:37)
--- NOTE | 2023-05-20 01:23 | PC.NURSE ---
VSS. Patient is asleep. Call walters within patient's reach.
[2023-05-20] MEDS: 0.9 % Sodium Chloride Flush 3 ML SYRINGE IVFLUSH ×3 (02:53→20:35)
[2023-05-20] MEDS: PHENobarbitaL sodium 130 MG/ML VIAL IM Q3Hx2 254 MG IM (03:10)
[2023-05-20 07:44] LABS: Mean Corpuscular HGB Conc 36.7 g/dl (31.0-36.0); Mean Corpuscular Hemoglobin 32.6 pg (27.0-33.0); Mean Corpuscular Volume 88.9 fL (80.0-98.0); Mean Platelet Volume 10.7 fL (9.4-12.4); Platelet Count 99 X10*3/uL (160-400); Red Cell Distribution Width 13.5 % (11.0-16.0); White Blood Count 8.5 X10*3/uL (4.8-10.8)
[2023-05-20 07:45] LABS: Hemoglobin 8.8 g/dl (14.0-18.0)
[2023-05-20 07:45] LABS: Glucose, Whole Blood 264 mg/dL (60-115)
[2023-05-20] MEDS: Octreotide Acetate 500 MCG in 0.9 % Sodium Chloride 500 ML 50.1 MCG IVCONT ×2 (07:53→17:51)
[2023-05-20] MEDS: Pantoprazole Sodium 80 MG in 0.9 % Sodium Chloride 80 ML 10 MG IV (07:54)
--- NOTE | 2023-05-20 07:55 | PC.NURSE ---
Pt is alert/oriented. Denies pain. No active bleeding noted. New bag for Ocretotide and Protonix started. Pt ask to ask and utilize urinal, voided 700ml of jm colored urine. NSR on monitor. Skin is pink warm and dry. Upon first entering pt room pt speech clear, however while readjusting in bed pt appeared with garbled speech and ?right sided facial droop while no unilateral weakness noted on exam. Dr Sosa notified and to bedside for evaluation as pt sx appeared to be improving. Pt now with clear speech and facial droop not noted. POC 260s, covered. Pt NPO but maintained POC from last night in 260s.
[2023-05-20 07:56] LABS: VBG Base Excess 21.3 mmol/L; VBG HCO3 45 mmol/L (22-26); VBG pCO2 45 mmHg; VBG pO2 77 mmHg
[2023-05-20 08:01] LABS: Venous Blood Gas Refer to POC result
--- NOTE | 2023-05-20 08:04 | PHA.MEDREC ---
Pharmacy Consult ? Medication Reconciliation Pharmacy has completed the medication reconciliation.
[2023-05-20] MEDS: Insulin Lispro 100 UNIT/ML 3 ML VIAL SUBCUT ×3 (08:09→20:32)
[2023-05-20] MEDS: PHENobarbitaL 15 MG TABLET 45 MG PO ×2 (08:10→20:32)
[2023-05-20 08:48] LABS: Anion Gap 15 (12-20); Blood Urea Nitrogen 11 mg/dL (9-16); Calcium 7.2 mg/dL (8.4-10.2); Carbon Dioxide 30 mmol/L (22-29); Chloride 83 mmol/L (96-108); Creatinine Clr Calc Pharmacy 146.5; Estimated Glomerular Filt Rate > 60; Glucose Random 247 mg/dL (60-115); Potassium 2.9 mmol/L (3.3-5.1); Sodium 125 mmol/L (135-145)
[2023-05-20 09:04] LABS: Anion Gap 15 (12-20); Beta-Hydroxybutyrate 0.62 mmol/L (0.02-0.27); Blood Urea Nitrogen 11 mg/dL (9-16); Calcium 7.2 mg/dL (8.4-10.2); Carbon Dioxide 30 mmol/L (22-29); Chloride 83 mmol/L (96-108); Creatinine Clr Calc Pharmacy 148.8; Estimated Glomerular Filt Rate > 60; Glucose Random 247 mg/dL (60-115); Magnesium 1.3 mg/dL (1.6-2.6); Potassium 2.9 mmol/L (3.3-5.1); Sodium 125 mmol/L (135-145)
[2023-05-20 09:06] LABS: Osmolality, Serum 270 mosm/kg (281-305)
[2023-05-20 09:17] LABS: MANUAL DIFF FLAG NO
[2023-05-20 09:18] LABS: Basophils Absolute Auto 0.1 X10*3/uL (0.0-0.2); Basophils Percent Auto 0.6 % (0-2); Eosinophils Percent Auto 0.3 % (0-4); Imm Gran Abs Auto 0.04 X10*3/uL (0.00-0.03); Imm Gran Pct Auto 0.5 % (0.0-0.4); Lymphocytes Absolute Auto 1.1 X10*3/uL (1.2-4.9); Monocytes Absolute Auto 0.5 X10*3/uL (0.1-1.2); Neutrophils Absolute Auto 6.9 x10*3/uL (2.0-8.3); Neutrophils Percent Auto 79.6 % (45-73)
--- NOTE | 2023-05-20 09:25 | PM.GICN ---
History of Present Illness Data of Consult Service Date: 05/20/23 Requesting physician: Arti Rasheed Primary Care Provider: Unknown Physician HPI Reason for consult: GI bleed This is a 47-year-old gentleman with past medical history of diabetes, alcohol use disorder, who presented to the hospital after multiple syncopal episodes and was found to be profoundly anemic for which gastroenterology has been consulted. History was obtained from the patient with the help of historic interpreter, who states that 3 days ago, he started noticing diffuse abd cramping and discomfort with nausea. Then 2 days ago he started experiencing vomiting as well which was initially clear to green and then turned dark. Was also accompanied by black stools. Since then, he has been getting progressively lightheaded, and on the day of admission, passed out a few times when he stood up too fast. Also suffered a small laceration at the back of his head due to falling on a box. He does report drinking 4-6 beers every day. Does not take NSAIDs or blood thinners. Does not report skipping insulin but has been noticing sugars above 400 for the past 2 days. Reports no previous similar presentation. Has hx of EGD 3 years ago at [facility] which was done for abd pain with vomiting without bleeding per his report. Has never had a colo. On initial eval in ER was noted to be tachycardiac and hypotensive. Labs significant for anemia with Hb of 5.7 which has since then improved to >[address] imaging with hepatomegaly and suggestive of some degree of steatosis but no overt stigmata of advanced liver disease despite low platelets on CBC. Pt was also noted to have s/sx of DKA on presentation, AG has since closed though ketones + still. Has been resuscitated with 3u PRBC and also receiving protonix iV, octreotide gtt, and CTX. Reports abd pain, N,V better since coming in. Has not had any further episodes. Last BM was earlier this morning and green per his report. Last CIWA score of 3 around 6am. Review of Systems Review of Systems: Yes all other systems are reviewed and are negative [facility] Past Medical History Medical History Alcohol abuse Diabetes Social History Social History Household Members: Family Housing: House Do you presently have visiting nurse or other home services: No Alcohol intake: current Patient Tobacco Use Status: Never used Tobacco Second Hand Smoke Exposure: No Meds Allergies Allergy/AdvReac Type Severity Reaction Status Date / Time No Known Allergies Allergy Verified 05/19/23 13:00 Active Medications: Current Medications Acetaminophen (Acetaminophen 325 Mg Tablet) 650 mg PO Q6H PRN PRN Reason: Pain, Mild (Pain Scale 1-3) Benzonatate (Benzonatate 100 Mg Capsule) 100 mg PO TID PRN PRN Reason: Cough Dextrose (Dextrose 50 % 25 Gm/50 Ml Syringe) 25 gm IVPUSH Q15M PRN; Protocol PRN Reason: per Hypoglycemia Standing Ord. Docusate Sodium (Docusate Sodium 100 Mg Capsule) 100 mg PO DAILY PRN PRN Reason: Constipation Glucose (Glucose Gel 15 Gm Gel..Gram.) 15 gm PO Q15M PRN; Protocol PRN Reason: per Hypoglycemia Standing Ord. Pantoprazole Sodium 80 mg/ (Sodium Chloride) 100 mls @ 10 mls/hr IV .Q10H [facility] Last Admin: 05/20/23 07:54 Dose: 8 mg/hr, 10 mls/hr Octreotide Acetate 500 mcg/ (Sodium Chloride) 501 mls @ 50.1 mls/hr IVCONT .Q10H [facility] Last Admin: 05/20/23 07:53 Dose: 50 mcg/hr, 50.1 mls/hr Potassium Chloride (Potassium Chloride/H20) 10 meq in 100 mls @ 100 mls/hr IV Q1H JONAH Stop: 05/20/23 12:59 Magnesium Sulfate/Dextrose (Magnesium Sulfate/D5w) 1 gm in 100 mls @ 100 mls/hr IV ONCE ONE Stop: 05/20/23 09:48 Insulin Human Lispro (Insulin Lispro 100 Unit/Ml 3 Ml Vial) 0 unit SUBCUT QIDACHS JONAH; Protocol Last Admin: 05/20/23 08:09 Dose: 6 unit Melatonin (Melatonin 3 Mg Tablet) 6 mg PO BEDTIME PRN PRN Reason: Insomnia Ondansetron HCl (Ondansetron Hcl 4 Mg/2 Ml Vial) 4 mg IVPUSH Q8H PRN PRN Reason: Nausea and Vomiting Pharmacy Consult (Consult Rx Etoh Phenob Im/Po) 1 each MISCELLANE ONCE PRN; Protocol PRN Reason: Consult order Phenobarbital (Phenobarbital 15 Mg Tablet) 45 mg PO BID [facility] Stop: 05/21/23 21:01 Last Admin: 05/20/23 08:10 Dose: 45 mg Phenobarbital (Phenobarbital 30 Mg Tablet) 30 mg PO BID [facility] Stop: 05/23/23 21:01 Phenobarbital (Phenobarbital 15 Mg Tablet) 15 mg PO DAILY [facility] Stop: 05/25/23 09:01 Sodium Chloride (0.9 % Sodium Chloride Flush 3 Ml Syringe) 3 ml IVFLUSH QSHIFT [facility] Last Admin: 05/20/23 07:55 Dose: 3 ml Home Medications Medication Instructions Recorded Confirmed Last Taken Type atorvastatin 40 mg tablet 40 mg PO DAILY 05/19/23 05/19/23 Unknown History insulin glargine 100 unit/mL (3 52 unit subcut DAILY 05/19/23 05/19/23 Unknown History mL) subcutaneous pen (Lantus Solostar U-100 Insulin) insulin lispro 100 unit/mL See Protocol subcut BIDAC 05/19/23 05/19/23 Unknown History subcutaneous pen Physical Exam Vital Signs: Vital Signs: Last Vital Signs Temp 99.7 F 05/20/23 06:04 Pulse 94 05/20/23 09:20 Resp 22 H 05/20/23 09:20 BP 104/63 05/20/23 09:20 Pulse Ox 99 05/20/23 09:20 O2 Del Method Nasal Cannula 05/20/23 09:20 O2 Flow Rate 2 05/20/23 09:20 BMI result Body Mass Index 26.1 Gen Appear: NAD, pale appearing HEENT: Scleral icterus Chest: CTA CVS: Regular S1/S2 no murmurs Abd: soft, nontender, nondistended, no shifting dullness to percussion, bowel sounds active Ext: No peripheral edema bilaterally Neuro: A/Ox3, no asterixis Derm: No spider angioma noted Results Labs 05/20/23 07:32 05/20/23 07:32 Labs: Short CBC 05/19/23 05/20/23 Range/Units 12:53 07:32 WBC 12.6 H 8.5 (4.8-10.8) X10*3/uL Hgb 5.7 L* 8.8 L D (14.0-18.0) g/dl Hct 15.7 L* 24.0 L D (42.0-52.0) % Plt Count 127 L 99 L (160-400) X10*3/uL BMP 05/19/23 05/19/23 05/20/23 12:53 16:54 07:32 Sodium 119 L* 123 L 125 L Potassium 2.7 L 2.7 L Chloride 73 L 80 L Carbon Dioxide 23 25 BUN 15 13 Creatinine 0.67 0.56 Calcium 8.0 L 7.4 L D 05/20/23 05/20/23 05/20/23 07:32 07:32 07:32 Sodium 125 L Potassium 2.9 L 2.9 L Chloride 83 L 83 L Carbon Dioxide 30 H BUN Creatinine Calcium 05/20/23 05/20/23 05/20/23 07:32 07:32 07:32 Sodium Potassium Chloride Carbon Dioxide 30 H BUN 11 11 Creatinine 0.62 0.63 Calcium 7.2 L 05/20/23 07:32 Sodium Potassium Chloride Carbon Dioxide BUN Creatinine Calcium 7.2 L Liver Function 05/19/23 Range/Units 12:53 Total Bilirubin 2.1 H (0.0-1.0) mg/dL Direct Bilirubin 1.2 H (0.0-0.5) mg/dL AST 100 H (5-37) U/L ALT 31 (0-40) U/L Alkaline Phosphatase 121 H (39-117) U/L Albumin 2.7 L (3.5-5.0) g/dL Urine 05/19/23 Range/Units 15:52 Urine Color Yellow Urine Appearance Clear Urine pH 6.5 (5.0-9.0) Ur Specific [place] >= 1.030 H (1.005-1.025) Urine Protein Negative (Neg-Trace) mg/dL Urine Glucose (UA) 500 H (Negative) mg/dL Assessment and Plan (1) Syncope: Status: Acute (2) Anemia: Status: Acute (3) GI bleed: Status: Acute (4) Alcoholic hepatitis: Status: Acute Plan 1. Acute anemia of blood loss: appears to be 2/2 UGIB. Ddx include MWT sonali given progression of vomiting from nonbloody to bloody, esophagitis, PUD, varices. Bleeding appears to have been self limited as he has had no further episodes in the last 12 hours and appropriate response to blood transfusion. Nonetheless, needs evaluation with upper endoscopy which we will tentatively schedule for tomorrow to allow for correction of electrolyte abnormalities. If pt demonstrates rebleeding, this will need to be expedited. Plan: - Ensue x2 IV access at all times - Active type and screen - Monitor H/H bid - Cont octreotide, ppi and CTX for now - Can have clears today - NPO after MN for egd tmrw - Pls page ghislaine if bleeding recurs 2. Alc hep: Meets criteria for alc hep based on presentation, LFT pattern and CT appearance of liver. Has borderline MDF of 32.6 however corticosteroids to be held in the setting of ongoing GI bleed and hyperglycemia. Plan: -Please check Hep A IgM and IgG, Hep B cAb/sAb/sAg, and Hep C Ab -Monitor MELD labs daily including bilirubin, INR, creatinine, sodium -IV Vit K 10mg already given in ER yest. -No role for checking or trending ammonia, trend mental status clinically and check daily for asterixis -Abdominal ultrasound with doppler to assess for biliary obstruction, ascites, and portal or hepatic vein thrombus -Complete infectious work up with blood cultures and CXR - up to 25% of alcoholic hepatitis patients are infected upon admission -Once pt able to take PO, nutrition goal >21kcal/kg/day and 1-1.5g/kg/day of protein- offer nutrition shakes TID to help meet this goal (mortality benefit) -Avoid all NSAIDS Thank you for allowing me to participate in his care. Please do not hesitate to reach out for any questions or concerns. Time Spent With Patient Time: Total time managing care of this patient today ____ minutes. Procedures Date of Service Date of Service: 05/20/23
[2023-05-20 09:37] LABS: Estimated Average Glucose 126 mg/dL
[2023-05-20 09:45] LABS: Alanine Aminotransferase 32 U/L (0-40); Albumin Level 2.6 g/dL (3.5-5.0); Alkaline Phosphatase 105 U/L (39-117); Aspartate Amino Transferase 107 U/L (5-37); Bilirubin Direct 2.9 mg/dL (0.0-0.5); Bilirubin Total 5.9 mg/dL (0.0-1.0); Phosphorus 1.5 mg/dL (2.7-4.5)
--- NOTE | 2023-05-20 10:34 | PM.CCPN ---
Subjective Subjective Date of Service: 05/20/23 Critical Care Time (minutes): 60 Physical Exam Vital Signs: Vital Signs: Last Vital Signs Temp 98 F 05/20/23 10:15 Pulse 97 05/20/23 10:15 Resp 18 05/20/23 10:15 BP 107/61 05/20/23 10:15 Pulse Ox 99 05/20/23 10:15 O2 Del Method Nasal Cannula 05/20/23 10:15 O2 Flow Rate 2 05/20/23 10:15 BMI result Body Mass Index 26.1 Const: General: cooperative, comfortable, no acute distress, well developed, alert and awake Orientation/consciousness: patient oriented x3 HEENT: Head: Yes normal to inspection, Yes normocephalic and Yes atraumatic Eyes: General: appearance normal, both eyes and all related structures Neck: Neck: Yes normal visual inspection, Yes full ROM and Yes supple Chest: Chest palpation & inspection: normal inspection of the chest Resp: Other: no rales, rhonchi, wheezing Effort & Inspection: normal respiratory effort Cardio: Rate: regular rate Rhythm: regular rhythm GI: Inspection: Yes normal to inspection, No Abdominal wall edema and No distended Palpation (GI): Soft to palpation, not firm, nontender, no guarding and not rigid : Male General Exam: Yes normal external exam Skin: General skin exam: no rashes or lesions noted Neuro: General: patient oriented x3, moves all extremities and no focal motor deficits Extrem: General: Yes normal to inspection, Yes capillary refill normal and Yes no clubbing, cyanosis or edema Psych: Appearance: grossly normal Objective Data Labs 05/20/23 07:32 05/20/23 07:32 Labs: Laboratory Results - last 24 hr 05/19/23 05/19/23 05/19/23 12:53 13:04 13:17 WBC 12.6 H RBC 1.73 L Hgb 5.7 L* Hct 15.7 L* MCV 90.8 MCH 32.9 MCHC 36.3 H RDW 12.5 Plt Count 127 L MPV 11.1 Immature Gran % (Auto) 0.6 H Neut % (Auto) 84.2 H Lymph % (Auto) 8.3 L [place] % (Auto) 6.7 Eos % (Auto) 0.0 Baso % (Auto) 0.2 Lymph # (Auto) 1.0 L [place] # (Auto) 0.8 Eos # (Auto) 0.0 Baso # (Auto) 0.0 Abs Immat Gran (auto) 0.08 H Absolute Neuts (auto) 10.6 H Absolute Nucleated RBC 0.000 Nucleated RBC % (auto) 0.0 PT 16.8 H INR 1.4 H APTT 32.4 VBG pH VBG pCO2 VBG pO2 VBG HCO3 VBG O2 Saturation VBG Base Excess Sodium 119 L* Potassium 2.7 L Chloride 73 L Carbon Dioxide 23 Anion Gap 26 H BUN 15 Creatinine 0.67 Estim Creat Clear Calc 137.7 Estimated GFR > 60 POC Glucose 361 H* Random Glucose 368 H* Estimat Average Glucose Hemoglobin A1c % Osmolality Cancelled Calcium 8.0 L Phosphorus Magnesium 1.3 L* Total Bilirubin 2.1 H Direct Bilirubin 1.2 H AST 100 H ALT 31 Alkaline Phosphatase 121 H Troponin I High Sens 6.8 Total Protein 6.1 L Albumin 2.7 L Lipase 13 Beta-Hydroxybutyrate Urine Color Urine Appearance Urine pH Ur Specific [place] Urine Protein Urine Glucose (UA) Urine Ketones Urine Blood Urine Nitrite Ur Leukocyte Esterase Urine RBC Urine WBC Ur Squamous Epith Cells Urine Bacteria Hyaline Casts Urine Osmolality Ur Random Sodium Ur Random Potassium Ur Random Chloride Stool Occult Blood Urine Opiates Screen Urine Fentanyl Screen Ur Barbiturates Screen Ur Phencyclidine Scrn Ur Amphetamines Screen U Benzodiazepines Scrn Urine Cocaine Screen U Marijuana (THC) Screen Ethyl Alcohol 181 Blood Type Antibody Screen Crossmatch 05/19/23 05/19/23 05/19/23 13:20 13:29 15:52 WBC RBC Hgb Hct MCV MCH MCHC RDW Plt Count MPV Immature Gran % (Auto) Neut % (Auto) Lymph % (Auto) [place] % (Auto) Eos % (Auto) Baso % (Auto) Lymph # (Auto) [place] # (Auto) Eos # (Auto) Baso # (Auto) Abs Immat Gran (auto) Absolute Neuts (auto) Absolute Nucleated RBC Nucleated RBC % (auto) PT INR APTT VBG pH VBG pCO2 VBG pO2 VBG HCO3 VBG O2 Saturation VBG Base Excess Sodium Potassium Chloride Carbon Dioxide Anion Gap BUN Creatinine Estim Creat Clear Calc Estimated GFR POC Glucose Random Glucose Estimat Average Glucose Hemoglobin A1c % Osmolality Calcium Phosphorus Magnesium Total Bilirubin Direct Bilirubin AST ALT Alkaline Phosphatase Troponin I High Sens Total Protein Albumin Lipase Beta-Hydroxybutyrate Urine Color Yellow Urine Appearance Clear Urine pH 6.5 Ur Specific [place] >= 1.030 H Urine Protein Negative Urine Glucose (UA) 500 H Urine Ketones 15 Urine Blood Trace H Urine Nitrite Negative Ur Leukocyte Esterase Negative Urine RBC 0-2 Urine WBC 0-5 Ur Squamous Epith Cells 0-2 Urine Bacteria None Seen Hyaline Casts 0-2 Urine Osmolality 443 Ur Random Sodium < 20.0 Ur Random Potassium 17.9 Ur Random Chloride < 20.0 Stool Occult Blood POSITIVE Urine Opiates Screen Not Detected Urine Fentanyl Screen Not Detected Ur Barbiturates Screen Not Detected Ur Phencyclidine Scrn Not Detected Ur Amphetamines Screen Not Detected U Benzodiazepines Scrn Not Detected Urine Cocaine Screen Not Detected U Marijuana (THC) Screen Not Detected Ethyl Alcohol Blood Type O Positive Antibody Screen NEGATIVE Crossmatch See Detail 05/19/23 05/19/23 05/20/23 16:54 22:49 07:32 WBC 8.5 RBC 2.70 L D Hgb 8.8 L D Hct 24.0 L D MCV 88.9 MCH 32.6 MCHC 36.7 H RDW 13.5 Plt Count 99 L MPV 10.7 Immature Gran % (Auto) 0.5 H Neut % (Auto) 79.6 H Lymph % (Auto) 13.0 L [place] % (Auto) 6.0 Eos % (Auto) 0.3 Baso % (Auto) 0.6 Lymph # (Auto) 1.1 L [place] # (Auto) 0.5 Eos # (Auto) 0.0 Baso # (Auto) 0.1 Abs Immat Gran (auto) 0.04 H Absolute Neuts (auto) 6.9 Absolute Nucleated RBC 0.000 Nucleated RBC % (auto) 0.0 PT INR APTT VBG pH VBG pCO2 VBG pO2 VBG HCO3 VBG O2 Saturation VBG Base Excess Sodium 123 L 125 L Potassium 2.7 L Chloride 80 L Carbon Dioxide 25 Anion Gap 21 H BUN 13 Creatinine 0.56 Estim Creat Clear Calc 164.8 Estimated GFR > 60 POC Glucose 267 H Random Glucose 252 H Estimat Average Glucose Hemoglobin A1c % Osmolality Calcium 7.4 L D Phosphorus Magnesium Total Bilirubin Direct Bilirubin AST ALT Alkaline Phosphatase Troponin I High Sens Total Protein Albumin Lipase Beta-Hydroxybutyrate Urine Color Urine Appearance Urine pH Ur Specific [place] Urine Protein Urine Glucose (UA) Urine Ketones Urine Blood Urine Nitrite Ur Leukocyte Esterase Urine RBC Urine WBC Ur Squamous Epith Cells Urine Bacteria Hyaline Casts Urine Osmolality Ur Random Sodium Ur Random Potassium Ur Random Chloride Stool Occult Blood Urine Opiates Screen Urine Fentanyl Screen Ur Barbiturates Screen Ur Phencyclidine Scrn Ur Amphetamines Screen U Benzodiazepines Scrn Urine Cocaine Screen U Marijuana (THC) Screen Ethyl Alcohol Blood Type Antibody Screen Crossmatch 05/20/23 05/20/23 05/20/23 07:32 07:32 07:32 WBC RBC Hgb Hct MCV MCH MCHC RDW Plt Count MPV Immature Gran % (Auto) Neut % (Auto) Lymph % (Auto) [place] % (Auto) Eos % (Auto) Baso % (Auto) Lymph # (Auto) [place] # (Auto) Eos # (Auto) Baso # (Auto) Abs Immat Gran (auto) Absolute Neuts (auto) Absolute Nucleated RBC Nucleated RBC % (auto) PT INR APTT VBG pH VBG pCO2 VBG pO2 VBG HCO3 VBG O2 Saturation VBG Base Excess Sodium 125 L Potassium 2.9 L 2.9 L Chloride 83 L 83 L Carbon Dioxide 30 H Anion Gap BUN Creatinine Estim Creat Clear Calc Estimated GFR POC Glucose Random Glucose Estimat Average Glucose Hemoglobin A1c % Osmolality Calcium Phosphorus Magnesium Total Bilirubin Direct Bilirubin AST ALT Alkaline Phosphatase Troponin I High Sens Total Protein Albumin Lipase Beta-Hydroxybutyrate Urine Color Urine Appearance Urine pH Ur Specific [place] Urine Protein Urine Glucose (UA) Urine Ketones Urine Blood Urine Nitrite Ur Leukocyte Esterase Urine RBC Urine WBC Ur Squamous Epith Cells Urine Bacteria Hyaline Casts Urine Osmolality Ur Random Sodium Ur Random Potassium Ur Random Chloride Stool Occult Blood Urine Opiates Screen Urine Fentanyl Screen Ur Barbiturates Screen Ur Phencyclidine Scrn Ur Amphetamines Screen U Benzodiazepines Scrn Urine Cocaine Screen U Marijuana (THC) Screen Ethyl Alcohol Blood Type Antibody Screen Crossmatch 05/20/23 05/20/23 05/20/23 07:32 07:32 07:32 WBC RBC Hgb Hct MCV MCH MCHC RDW Plt Count MPV Immature Gran % (Auto) Neut % (Auto) Lymph % (Auto) [place] % (Auto) Eos % (Auto) Baso % (Auto) Lymph # (Auto) [place] # (Auto) Eos # (Auto) Baso # (Auto) Abs Immat Gran (auto) Absolute Neuts (auto) Absolute Nucleated RBC Nucleated RBC % (auto) PT INR APTT VBG pH VBG pCO2 VBG pO2 VBG HCO3 VBG O2 Saturation VBG Base Excess Sodium Potassium Chloride Carbon Dioxide 30 H Anion Gap 15 15 BUN 11 11 Creatinine 0.62 Estim Creat Clear Calc Estimated GFR POC Glucose Random Glucose Estimat Average Glucose Hemoglobin A1c % Osmolality Calcium Phosphorus Magnesium Total Bilirubin Direct Bilirubin AST ALT Alkaline Phosphatase Troponin I High Sens Total Protein Albumin Lipase Beta-Hydroxybutyrate Urine Color Urine Appearance Urine pH Ur Specific [place] Urine Protein Urine Glucose (UA) Urine Ketones Urine Blood Urine Nitrite Ur Leukocyte Esterase Urine RBC Urine WBC Ur Squamous Epith Cells Urine Bacteria Hyaline Casts Urine Osmolality Ur Random Sodium Ur Random Potassium Ur Random Chloride Stool Occult Blood Urine Opiates Screen Urine Fentanyl Screen Ur Barbiturates Screen Ur Phencyclidine Scrn Ur Amphetamines Screen U Benzodiazepines Scrn Urine Cocaine Screen U Marijuana (THC) Screen Ethyl Alcohol Blood Type Antibody Screen Crossmatch 05/20/23 05/20/23 05/20/23 07:32 07:32 07:32 WBC RBC Hgb Hct MCV MCH MCHC RDW Plt Count MPV Immature Gran % (Auto) Neut % (Auto) Lymph % (Auto) [place] % (Auto) Eos % (Auto) Baso % (Auto) Lymph # (Auto) [place] # (Auto) Eos # (Auto) Baso # (Auto) Abs Immat Gran (auto) Absolute Neuts (auto) Absolute Nucleated RBC Nucleated RBC % (auto) PT INR APTT VBG pH VBG pCO2 VBG pO2 VBG HCO3 VBG O2 Saturation VBG Base Excess Sodium Potassium Chloride Carbon Dioxide Anion Gap BUN Creatinine 0.63 Estim Creat Clear Calc 148.8 146.5 Estimated GFR > 60 > 60 POC Glucose Random Glucose 247 H Estimat Average Glucose Hemoglobin A1c % Osmolality Calcium Phosphorus Magnesium Total Bilirubin Direct Bilirubin AST ALT Alkaline Phosphatase Troponin I High Sens Total Protein Albumin Lipase Beta-Hydroxybutyrate Urine Color Urine Appearance Urine pH Ur Specific [place] Urine Protein Urine Glucose (UA) Urine Ketones Urine Blood Urine Nitrite Ur Leukocyte Esterase Urine RBC Urine WBC Ur Squamous Epith Cells Urine Bacteria Hyaline Casts Urine Osmolality Ur Random Sodium Ur Random Potassium Ur Random Chloride Stool Occult Blood Urine Opiates Screen Urine Fentanyl Screen Ur Barbiturates Screen Ur Phencyclidine Scrn Ur Amphetamines Screen U Benzodiazepines Scrn Urine Cocaine Screen U Marijuana (THC) Screen Ethyl Alcohol Blood Type Antibody Screen Crossmatch 05/20/23 05/20/23 05/20/23 07:32 07:32 07:41 WBC RBC Hgb Hct MCV MCH MCHC RDW Plt Count MPV Immature Gran % (Auto) Neut % (Auto) Lymph % (Auto) [place] % (Auto) Eos % (Auto) Baso % (Auto) Lymph # (Auto) [place] # (Auto) Eos # (Auto) Baso # (Auto) Abs Immat Gran (auto) Absolute Neuts (auto) Absolute Nucleated RBC Nucleated RBC % (auto) PT INR APTT VBG pH VBG pCO2 VBG pO2 VBG HCO3 VBG O2 Saturation VBG Base Excess Sodium Potassium Chloride Carbon Dioxide Anion Gap BUN Creatinine Estim Creat Clear Calc Estimated GFR POC Glucose 264 H Random Glucose 247 H Estimat Average Glucose 126 Hemoglobin A1c % 6.0 Osmolality 270 L Calcium 7.2 L 7.2 L Phosphorus 1.5 L Magnesium 1.3 L* Total Bilirubin 5.9 H Direct Bilirubin 2.9 H AST 107 H ALT 32 Alkaline Phosphatase 105 Troponin I High Sens Total Protein 6.0 L Albumin 2.6 L Lipase Beta-Hydroxybutyrate 0.62 H Urine Color Urine Appearance Urine pH Ur Specific [place] Urine Protein Urine Glucose (UA) Urine Ketones Urine Blood Urine Nitrite Ur Leukocyte Esterase Urine RBC Urine WBC Ur Squamous Epith Cells Urine Bacteria Hyaline Casts Urine Osmolality Ur Random Sodium Ur Random Potassium Ur Random Chloride Stool Occult Blood Urine Opiates Screen Urine Fentanyl Screen Ur Barbiturates Screen Ur Phencyclidine Scrn Ur Amphetamines Screen U Benzodiazepines Scrn Urine Cocaine Screen U Marijuana (THC) Screen Ethyl Alcohol Blood Type Antibody Screen Crossmatch 05/20/23 07:42 WBC RBC Hgb Hct MCV MCH MCHC RDW Plt Count MPV Immature Gran % (Auto) Neut % (Auto) Lymph % (Auto) [place] % (Auto) Eos % (Auto) Baso % (Auto) Lymph # (Auto) [place] # (Auto) Eos # (Auto) Baso # (Auto) Abs Immat Gran (auto) Absolute Neuts (auto) Absolute Nucleated RBC Nucleated RBC % (auto) PT INR APTT VBG pH 7.60 H* VBG pCO2 45 VBG pO2 77 VBG HCO3 45 H VBG O2 Saturation 98.0 VBG Base Excess 21.3 Sodium Potassium Chloride Carbon Dioxide Anion Gap BUN Creatinine Estim Creat Clear Calc Estimated GFR POC Glucose Random Glucose Estimat Average Glucose Hemoglobin A1c % Osmolality Calcium Phosphorus Magnesium Total Bilirubin Direct Bilirubin AST ALT Alkaline Phosphatase Troponin I High Sens Total Protein Albumin Lipase Beta-Hydroxybutyrate Urine Color Urine Appearance Urine pH Ur Specific [place] Urine Protein Urine Glucose (UA) Urine Ketones Urine Blood Urine Nitrite Ur Leukocyte Esterase Urine RBC Urine WBC Ur Squamous Epith Cells Urine Bacteria Hyaline Casts Urine Osmolality Ur Random Sodium Ur Random Potassium Ur Random Chloride Stool Occult Blood Urine Opiates Screen Urine Fentanyl Screen Ur Barbiturates Screen Ur Phencyclidine Scrn Ur Amphetamines Screen U Benzodiazepines Scrn Urine Cocaine Screen U Marijuana (THC) Screen Ethyl Alcohol Blood Type Antibody Screen Crossmatch Progress Note: A&P Assessment and plan (1) GI bleed: Status: Acute Plan 47 Y M, alcohol misuse, p/w syncope x3, in the setting of hematemesis and hematochezia, found to have acute blood loss anemia, responded appropriately to transfusion N: no acute issues; seizure-like activity 05/19 PM, c/f alcohol withdrawal, on phenobarbital withdrawal protocol CV: intermittently hypotensive; s/p 3 pRBC , 2800 mL since admission R: no acute issues GI: alcohol misuse, c/f upper GI bleed, possible variceal bleed; CTA A/P not demonstrating active GI bleed; continue octreotide, pantoprazole, and ceftriaxone; appreciate GI recommendations : multiple electrolyte derangements, appears to be d/t decreased intake; replete as needed H: acute blood loss anemia, transfuse as needed ID: ceftriaxone for possible variceal bleed E: hyperglycemia; home insulin regimen and sliding scale Quality Stroke Does the patient have a stroke diagnosis?: No VTE Prior VTE?: No VTE Risk Level:: Medical - moderate - high VTE Device Contraindication: N/A - Device Ordered VTE Drug Contraindication: Treatment Not Tolerated
--- NOTE | 2023-05-20 10:42 | HO.PM.IMPN ---
Subjective Subjective Date of Service: 05/20/23 Interval History: possible upper Gi bleed ,alcohol withdrawal ,multiple electrolytic abnormalities Review of Systems no new vomitin episdose seems generalised weak ,answers simple questions Abdominal soreness seems to be improving Physical Exam Vital Signs: Vital Signs: Last Vital Signs Temp 98 F 05/20/23 10:15 Pulse 97 05/20/23 10:15 Resp 18 05/20/23 10:15 BP 107/61 05/20/23 10:15 Pulse Ox 99 05/20/23 10:15 O2 Del Method Nasal Cannula 05/20/23 10:15 O2 Flow Rate 2 05/20/23 10:15 BMI result Body Mass Index 26.1 Appearance: Alert.? Oriented X3.anxious ,tremerulous cvs: rrr, [id number] . res: clear to auscultation ,no rhonchii or wheezing abd: no rebound or guarding ,nt, bs present. ext pulses present , no cyanosis . neuro: axo3 , nonfocal. Objective Data Active Medications Acetaminophen (Acetaminophen 325 Mg Tablet) 650 mg PO Q6H PRN PRN Reason: Pain, Mild (Pain Scale 1-3) Benzonatate (Benzonatate 100 Mg Capsule) 100 mg PO TID PRN PRN Reason: Cough Dextrose (Dextrose 50 % 25 Gm/50 Ml Syringe) 25 gm IVPUSH Q15M PRN; Protocol PRN Reason: per Hypoglycemia Standing Ord. Docusate Sodium (Docusate Sodium 100 Mg Capsule) 100 mg PO DAILY PRN PRN Reason: Constipation Glucose (Glucose Gel 15 Gm Gel..Gram.) 15 gm PO Q15M PRN; Protocol PRN Reason: per Hypoglycemia Standing Ord. Pantoprazole Sodium 80 mg/ (Sodium Chloride) 100 mls @ 10 mls/hr IV .Q10H [facility] Last Admin: 05/20/23 07:54 Dose: 8 mg/hr, 10 mls/hr Documented By: EVERETTE Octreotide Acetate 500 mcg/ (Sodium Chloride) 501 mls @ 50.1 mls/hr IVCONT .Q10H [facility] Last Admin: 05/20/23 07:53 Dose: 50 mcg/hr, 50.1 mls/hr Documented By: EVERETTE Potassium Chloride (Potassium Chloride/H20) 10 meq in 100 mls @ 100 mls/hr IV Q1H [facility] Stop: 05/20/23 12:59 Insulin Human Lispro (Insulin Lispro 100 Unit/Ml 3 Ml Vial) 0 unit SUBCUT QIDACHS [facility]; Protocol Last Admin: 05/20/23 08:09 Dose: 6 unit Documented By: EVERETTE Melatonin (Melatonin 3 Mg Tablet) 6 mg PO BEDTIME PRN PRN Reason: Insomnia Ondansetron HCl (Ondansetron Hcl 4 Mg/2 Ml Vial) 4 mg IVPUSH Q8H PRN PRN Reason: Nausea and Vomiting Pharmacy Consult (Consult Rx Etoh Phenob Im/Po) 1 each MISCELLANE ONCE PRN; Protocol PRN Reason: Consult order Phenobarbital (Phenobarbital 15 Mg Tablet) 45 mg PO BID [facility] Stop: 05/21/23 21:01 Last Admin: 05/20/23 08:10 Dose: 45 mg Documented By: EVERETTE Phenobarbital (Phenobarbital 30 Mg Tablet) 30 mg PO BID [facility] Stop: 05/23/23 21:01 Phenobarbital (Phenobarbital 15 Mg Tablet) 15 mg PO DAILY [facility] Stop: 05/25/23 09:01 Sodium Chloride (0.9 % Sodium Chloride Flush 3 Ml Syringe) 3 ml IVFLUSH QSHIFT [facility] Last Admin: 05/20/23 07:55 Dose: 3 ml Documented By: EVERETTE Labs 05/20/23 11:25 05/20/23 11:25 Labs: Laboratory Results - last 24 hr 05/19/23 05/19/23 05/19/23 12:53 13:04 13:17 MCV 90.8 MCH 32.9 MCHC 36.3 H RDW 12.5 Plt Count 127 L MPV 11.1 Immature Gran % (Auto) 0.6 H Neut % (Auto) 84.2 H Lymph % (Auto) 8.3 L Rankin % (Auto) 6.7 Eos % (Auto) 0.0 Baso % (Auto) 0.2 Lymph # (Auto) 1.0 L Rankin # (Auto) 0.8 Eos # (Auto) 0.0 Baso # (Auto) 0.0 Abs Immat Gran (auto) 0.08 H Absolute Neuts (auto) 10.6 H Absolute Nucleated RBC 0.000 Nucleated RBC % (auto) 0.0 PT 16.8 H INR 1.4 H APTT 32.4 VBG pH VBG pCO2 VBG pO2 VBG HCO3 VBG O2 Saturation VBG Base Excess Anion Gap 26 H Estim Creat Clear Calc 137.7 Estimated GFR > 60 POC Glucose 361 H* Random Glucose 368 H* Estimat Average Glucose Hemoglobin A1c % Osmolality Cancelled Calcium 8.0 L Phosphorus Magnesium 1.3 L* Total Bilirubin 2.1 H Direct Bilirubin 1.2 H AST 100 H ALT 31 Alkaline Phosphatase 121 H Total Protein 6.1 L Albumin 2.7 L Lipase 13 Beta-Hydroxybutyrate Urine Color Urine Appearance Urine pH Ur Specific Omar Urine Protein Urine Glucose (UA) Urine Ketones Urine Blood Urine Nitrite Ur Leukocyte Esterase Urine RBC Urine WBC Ur Squamous Epith Cells Urine Bacteria Hyaline Casts Urine Osmolality Ur Random Sodium Ur Random Potassium Ur Random Chloride Stool Occult Blood Urine Opiates Screen Urine Fentanyl Screen Ur Barbiturates Screen Ur Phencyclidine Scrn Ur Amphetamines Screen U Benzodiazepines Scrn Urine Cocaine Screen U Marijuana (THC) Screen Ethyl Alcohol 181 Blood Type Antibody Screen Crossmatch 05/19/23 05/19/23 05/19/23 13:20 13:29 15:52 MCV MCH MCHC RDW Plt Count MPV Immature Gran % (Auto) Neut % (Auto) Lymph % (Auto) Rankin % (Auto) Eos % (Auto) Baso % (Auto) Lymph # (Auto) Rankin # (Auto) Eos # (Auto) Baso # (Auto) Abs Immat Gran (auto) Absolute Neuts (auto) Absolute Nucleated RBC Nucleated RBC % (auto) PT INR APTT VBG pH VBG pCO2 VBG pO2 VBG HCO3 VBG O2 Saturation VBG Base Excess Anion Gap Estim Creat Clear Calc Estimated GFR POC Glucose Random Glucose Estimat Average Glucose Hemoglobin A1c % Osmolality Calcium Phosphorus Magnesium Total Bilirubin Direct Bilirubin AST ALT Alkaline Phosphatase Total Protein Albumin Lipase Beta-Hydroxybutyrate Urine Color Yellow Urine Appearance Clear Urine pH 6.5 Ur Specific Omar >= 1.030 H Urine Protein Negative Urine Glucose (UA) 500 H Urine Ketones 15 Urine Blood Trace H Urine Nitrite Negative Ur Leukocyte Esterase Negative Urine RBC 0-2 Urine WBC 0-5 Ur Squamous Epith Cells 0-2 Urine Bacteria None Seen Hyaline Casts 0-2 Urine Osmolality 443 Ur Random Sodium < 20.0 Ur Random Potassium 17.9 Ur Random Chloride < 20.0 Stool Occult Blood POSITIVE Urine Opiates Screen Not Detected Urine Fentanyl Screen Not Detected Ur Barbiturates Screen Not Detected Ur Phencyclidine Scrn Not Detected Ur Amphetamines Screen Not Detected U Benzodiazepines Scrn Not Detected Urine Cocaine Screen Not Detected U Marijuana (THC) Screen Not Detected Ethyl Alcohol Blood Type O Positive Antibody Screen NEGATIVE Crossmatch See Detail 05/19/23 05/19/23 05/20/23 16:54 22:49 07:32 MCV 88.9 MCH 32.6 MCHC 36.7 H RDW 13.5 Plt Count 99 L MPV 10.7 Immature Gran % (Auto) 0.5 H Neut % (Auto) 79.6 H Lymph % (Auto) 13.0 L Rankin % (Auto) 6.0 Eos % (Auto) 0.3 Baso % (Auto) 0.6 Lymph # (Auto) 1.1 L Rankin # (Auto) 0.5 Eos # (Auto) 0.0 Baso # (Auto) 0.1 Abs Immat Gran (auto) 0.04 H Absolute Neuts (auto) 6.9 Absolute Nucleated RBC 0.000 Nucleated RBC % (auto) 0.0 PT INR APTT VBG pH VBG pCO2 VBG pO2 VBG HCO3 VBG O2 Saturation VBG Base Excess Anion Gap 21 H 15 Estim Creat Clear Calc 164.8 Estimated GFR > 60 POC Glucose 267 H Random Glucose 252 H Estimat Average Glucose Hemoglobin A1c % Osmolality Calcium 7.4 L D Phosphorus Magnesium Total Bilirubin Direct Bilirubin AST ALT Alkaline Phosphatase Total Protein Albumin Lipase Beta-Hydroxybutyrate Urine Color Urine Appearance Urine pH Ur Specific Omar Urine Protein Urine Glucose (UA) Urine Ketones Urine Blood Urine Nitrite Ur Leukocyte Esterase Urine RBC Urine WBC Ur Squamous Epith Cells Urine Bacteria Hyaline Casts Urine Osmolality Ur Random Sodium Ur Random Potassium Ur Random Chloride Stool Occult Blood Urine Opiates Screen Urine Fentanyl Screen Ur Barbiturates Screen Ur Phencyclidine Scrn Ur Amphetamines Screen U Benzodiazepines Scrn Urine Cocaine Screen U Marijuana (THC) Screen Ethyl Alcohol Blood Type Antibody Screen Crossmatch 05/20/23 05/20/23 05/20/23 07:32 07:32 07:32 MCV MCH MCHC RDW Plt Count MPV Immature Gran % (Auto) Neut % (Auto) Lymph % (Auto) Rankin % (Auto) Eos % (Auto) Baso % (Auto) Lymph # (Auto) Rankin # (Auto) Eos # (Auto) Baso # (Auto) Abs Immat Gran (auto) Absolute Neuts (auto) Absolute Nucleated RBC Nucleated RBC % (auto) PT INR APTT VBG pH VBG pCO2 VBG pO2 VBG HCO3 VBG O2 Saturation VBG Base Excess Anion Gap 15 Estim Creat Clear Calc 148.8 146.5 Estimated GFR > 60 > 60 POC Glucose Random Glucose 247 H Estimat Average Glucose Hemoglobin A1c % Osmolality Calcium Phosphorus Magnesium Total Bilirubin Direct Bilirubin AST ALT Alkaline Phosphatase Total Protein Albumin Lipase Beta-Hydroxybutyrate Urine Color Urine Appearance Urine pH Ur Specific Omar Urine Protein Urine Glucose (UA) Urine Ketones Urine Blood Urine Nitrite Ur Leukocyte Esterase Urine RBC Urine WBC Ur Squamous Epith Cells Urine Bacteria Hyaline Casts Urine Osmolality Ur Random Sodium Ur Random Potassium Ur Random Chloride Stool Occult Blood Urine Opiates Screen Urine Fentanyl Screen Ur Barbiturates Screen Ur Phencyclidine Scrn Ur Amphetamines Screen U Benzodiazepines Scrn Urine Cocaine Screen U Marijuana (THC) Screen Ethyl Alcohol Blood Type Antibody Screen Crossmatch 05/20/23 05/20/23 05/20/23 07:32 07:32 07:41 MCV MCH MCHC RDW Plt Count MPV Immature Gran % (Auto) Neut % (Auto) Lymph % (Auto) Rankin % (Auto) Eos % (Auto) Baso % (Auto) Lymph # (Auto) Rankin # (Auto) Eos # (Auto) Baso # (Auto) Abs Immat Gran (auto) Absolute Neuts (auto) Absolute Nucleated RBC Nucleated RBC % (auto) PT INR APTT VBG pH VBG pCO2 VBG pO2 VBG HCO3 VBG O2 Saturation VBG Base Excess Anion Gap Estim Creat Clear Calc Estimated GFR POC Glucose 264 H Random Glucose 247 H Estimat Average Glucose 126 Hemoglobin A1c % 6.0 Osmolality 270 L Calcium 7.2 L 7.2 L Phosphorus 1.5 L Magnesium 1.3 L* Total Bilirubin 5.9 H Direct Bilirubin 2.9 H AST 107 H ALT 32 Alkaline Phosphatase 105 Total Protein 6.0 L Albumin 2.6 L Lipase Beta-Hydroxybutyrate 0.62 H Urine Color Urine Appearance Urine pH Ur Specific Omar Urine Protein Urine Glucose (UA) Urine Ketones Urine Blood Urine Nitrite Ur Leukocyte Esterase Urine RBC Urine WBC Ur Squamous Epith Cells Urine Bacteria Hyaline Casts Urine Osmolality Ur Random Sodium Ur Random Potassium Ur Random Chloride Stool Occult Blood Urine Opiates Screen Urine Fentanyl Screen Ur Barbiturates Screen Ur Phencyclidine Scrn Ur Amphetamines Screen U Benzodiazepines Scrn Urine Cocaine Screen U Marijuana (THC) Screen Ethyl Alcohol Blood Type Antibody Screen Crossmatch 05/20/23 07:42 MCV MCH MCHC RDW Plt Count MPV Immature Gran % (Auto) Neut % (Auto) Lymph % (Auto) Rankin % (Auto) Eos % (Auto) Baso % (Auto) Lymph # (Auto) Rankin # (Auto) Eos # (Auto) Baso # (Auto) Abs Immat Gran (auto) Absolute Neuts (auto) Absolute Nucleated RBC Nucleated RBC % (auto) PT INR APTT VBG pH 7.60 H* VBG pCO2 45 VBG pO2 77 VBG HCO3 45 H VBG O2 Saturation 98.0 VBG Base Excess 21.3 Anion Gap Estim Creat Clear Calc Estimated GFR POC Glucose Random Glucose Estimat Average Glucose Hemoglobin A1c % Osmolality Calcium Phosphorus Magnesium Total Bilirubin Direct Bilirubin AST ALT Alkaline Phosphatase Total Protein Albumin Lipase Beta-Hydroxybutyrate Urine Color Urine Appearance Urine pH Ur Specific Omar Urine Protein Urine Glucose (UA) Urine Ketones Urine Blood Urine Nitrite Ur Leukocyte Esterase Urine RBC Urine WBC Ur Squamous Epith Cells Urine Bacteria Hyaline Casts Urine Osmolality Ur Random Sodium Ur Random Potassium Ur Random Chloride Stool Occult Blood Urine Opiates Screen Urine Fentanyl Screen Ur Barbiturates Screen Ur Phencyclidine Scrn Ur Amphetamines Screen U Benzodiazepines Scrn Urine Cocaine Screen U Marijuana (THC) Screen Ethyl Alcohol Blood Type Antibody Screen Crossmatch Assessment and Plan (1) Alcoholic hepatitis: Status: Acute (2) Hypotension: Status: Acute (3) Acute hyperglycemia: Status: Acute (4) Hypomagnesemia: Status: Acute (5) Acute hypokalemia: Status: Acute (6) Acute hyponatremia: Status: Acute (7) Anemia: Status: Acute (8) GI bleed: Status: Acute Plan 47-year-old male with a PMH significant for?insulin-dependent diabetes type 2 andHLD who presents to the ED for evaluation of syncopal episodes and vomiting blood. Pt will be admitted to the hospital for treatment and further evaluation of acute blood loss anemia and multiple electrolyte abnormalities. Acute blood loss anemia secondary to GI bleed Patient with hematemesis, melena/hematochezia x 2-3 days Patient's H&H 5.7/15.7, platelets 127, hypotensive as low as 85/49, stool positive for occult blood started Protonix, octreotide, ondansetron, and transfuse s/p 3units PRBCs . h/h is around 8.8/24 range moniter cbc q4hr ,bleedin NPO GI following Hyponatremia sodium when adjusted for glucose was 123-125 -127 range denia osmolality, urine osmolality, urine sodium, urine electrolytes nephrology radha,moniter bmp q4hr Follow BMP Hypokalemia even after 80 mEq IV potassium -Patient's potassium 2.9 added 40 mEq potassium IV Follow BMP Hypomagnesemia Patient's magnesium 1.3 this -received Mag sulfate 2 g in ED Trend Mag Syncopal episodes with head strike Patient with small superficial laceration to the back of his skull CT of head and brain:No acute intracranial abnormality including hemorrhage, mass effect, hydrocephalus, or acute territorial edematous infarction. dm with Hyperglycemia continue lantus fs with coverage sliding scale insulin bicarb is 30, ph 7.6 ,anion gap normal but has Diabetic diet once no longer NPO Leukocytosis resolved Likely reactionary acute anemia, not due to sepsis or active infection Tachycardia and tachypnea secondary to acute blood loss anemia, not sepsis or active infection Acute alcohol withdrawal Patient with daily alcohol intake upper extremity resting tremors noted Patient's alcohol level 181 at time of presentation has episode of seizure yesterday evening -needed ativan CIWA placed on phenobarb protocol HLD Hold statin d/t transaminitis Full Code DVT Prophylaxis: Penumatic boots Patient will be goind to ICu level of care due to acute blood loss anemia due to GI bleed(possible upper GI) and multiple electrolyte abnormalities-need ppi,octerotide drips ,close and frequent monitoring of labs, electrolyte replenishment,also Egd . Time Spent With Patient Time: Total time managing care of this patient today ____ minutes. Quality Stroke Does the patient have a stroke diagnosis?: No VTE Prior VTE?: No VTE Risk Level:: Medical - moderate - high VTE Device Contraindication: N/A - Device Ordered VTE Drug Contraindication: Treatment Not Tolerated
[2023-05-20 11:30] LABS: MANUAL DIFF FLAG NO
[2023-05-20 11:38] LABS: Basophils Percent Auto 0.3 % (0-2); Eosinophils Percent Auto 0.3 % (0-4); Hemoglobin 8.4 g/dl (14.0-18.0); Imm Gran Abs Auto 0.04 X10*3/uL (0.00-0.03); Imm Gran Pct Auto 0.4 % (0.0-0.4); Lymphocytes Absolute Auto 0.9 X10*3/uL (1.2-4.9); Lymphocytes Percent Auto 10.5 % (20-40); Mean Corpuscular HGB Conc 36.5 g/dl (31.0-36.0); Mean Corpuscular Hemoglobin 32.6 pg (27.0-33.0); Mean Corpuscular Volume 89.1 fL (80.0-98.0); Mean Platelet Volume 11.3 fL (9.4-12.4); Monocytes Absolute Auto 0.7 X10*3/uL (0.1-1.2); Monocytes Percent Auto 7.9 % (2-11); Neutrophils Absolute Auto 7.2 x10*3/uL (2.0-8.3); Neutrophils Percent Auto 80.6 % (45-73); Platelet Count 93 X10*3/uL (160-400); Red Blood Count 2.58 X10*6/uL (4.60-5.80); Red Cell Distribution Width 13.7 % (11.0-16.0); White Blood Count 8.9 X10*3/uL (4.8-10.8)
[2023-05-20 11:52] LABS: Glucose, Whole Blood 231 mg/dL (60-115)
[2023-05-20 11:53] LABS: Alanine Aminotransferase 31 U/L (0-40); Albumin Level 2.5 g/dL (3.5-5.0); Alkaline Phosphatase 100 U/L (39-117); Anion Gap 13 (12-20); Aspartate Amino Transferase 108 U/L (5-37); Bilirubin Total 5.2 mg/dL (0.0-1.0); Blood Urea Nitrogen 10 mg/dL (9-16); Calcium 7.3 mg/dL (8.4-10.2); Carbon Dioxide 31 mmol/L (22-29); Chloride 83 mmol/L (96-108); Creatinine Clr Calc Pharmacy 151.3; Estimated Glomerular Filt Rate > 60; Glucose Random 223 mg/dL (60-115); Magnesium 1.5 mg/dL (1.6-2.6); Phosphorus 1.1 mg/dL (2.7-4.5); Potassium 2.8 mmol/L (3.3-5.1); Sodium 124 mmol/L (135-145); Total Protein 5.7 g/dL (6.5-8.0)
[2023-05-20] MEDS: Magnesium Sulfate/D5W 1 GM/100 ML PIGGYBACK IV (11:56)
[2023-05-20] MEDS: cefTRIAXone sodium 1 GM in 0.9 % Sodium Chloride 50 ML IV (12:02)
[2023-05-20] MEDS: Calcium Gluconate/NaCl,Iso-Osm 2 GM/100 ML PLAST..BAG IV (12:19)
[2023-05-20] MEDS: Potassium Phosphate/NS 15 MMOL/250 ML PLAST..BAG 62.5 MMOL IV ×2 (12:47→17:11)
[2023-05-20] MEDS: 0.9 % Sodium Chloride 1,000 ML 100 ML IV (12:48)
[2023-05-20 16:47] LABS: Glucose, Whole Blood 147 mg/dL (60-115)
[2023-05-20] MEDS: Pantoprazole Sodium 40 MG/10 ML VIAL IVPUSH (16:52)
[2023-05-20 17:08] LABS: MANUAL DIFF FLAG NO
[2023-05-20 17:13] LABS: Basophils Percent Auto 0.5 % (0-2); Eosinophils Percent Auto 0.4 % (0-4); Hematocrit 23.3 % (42.0-52.0); Hemoglobin 8.6 g/dl (14.0-18.0); Imm Gran Abs Auto 0.04 X10*3/uL (0.00-0.03); Imm Gran Pct Auto 0.5 % (0.0-0.4); Lymphocytes Percent Auto 11.9 % (20-40); Mean Corpuscular HGB Conc 36.9 g/dl (31.0-36.0); Mean Corpuscular Hemoglobin 33.1 pg (27.0-33.0); Mean Corpuscular Volume 89.6 fL (80.0-98.0); Mean Platelet Volume 11.4 fL (9.4-12.4); Monocytes Absolute Auto 0.6 X10*3/uL (0.1-1.2); Monocytes Percent Auto 6.9 % (2-11); NRBC Pct Auto 0.2 /100WBC (0.0-0.2); Neutrophils Absolute Auto 6.8 x10*3/uL (2.0-8.3); Neutrophils Percent Auto 79.8 % (45-73); Red Cell Distribution Width 13.7 % (11.0-16.0); White Blood Count 8.5 X10*3/uL (4.8-10.8)
[2023-05-20] MEDS: Albumin Human 25 % 100 ML IV ×2 (17:14→18:29)
[2023-05-20 17:15] LABS: Platelet Count 95 X10*3/uL (160-400)
[2023-05-20 17:25] LABS: Anion Gap 12 (12-20); Blood Urea Nitrogen 8 mg/dL (9-16); Calcium 7.5 mg/dL (8.4-10.2); Carbon Dioxide 32 mmol/L (22-29); Chloride 86 mmol/L (96-108); Creatinine Clr Calc Pharmacy 161.9; Estimated Glomerular Filt Rate > 60; Glucose Random 161 mg/dL (60-115); Sodium 127 mmol/L (135-145)
[2023-05-20 20:31] LABS: Glucose, Whole Blood 182 mg/dL (60-115)
[2023-05-20 22:54] LABS: Basophils Percent Auto 0.6 % (0-2); Eosinophils Absolute Auto 0.1 X10*3/uL (0.0-0.4); Hematocrit 21.6 % (42.0-52.0); Hemoglobin 7.9 g/dl (14.0-18.0); Imm Gran Abs Auto 0.04 X10*3/uL (0.00-0.03); Imm Gran Pct Auto 0.6 % (0.0-0.4); Lymphocytes Absolute Auto 0.7 X10*3/uL (1.2-4.9); Lymphocytes Percent Auto 10.3 % (20-40); MANUAL DIFF FLAG SCAN; Mean Corpuscular HGB Conc 36.6 g/dl (31.0-36.0); Mean Corpuscular Hemoglobin 32.6 pg (27.0-33.0); Mean Corpuscular Volume 89.3 fL (80.0-98.0); Monocytes Absolute Auto 0.5 X10*3/uL (0.1-1.2); Monocytes Percent Auto 6.9 % (2-11); Neutrophils Absolute Auto 5.7 x10*3/uL (2.0-8.3); Neutrophils Percent Auto 80.6 % (45-73); PLT CLUMP 1; Red Blood Count 2.42 X10*6/uL (4.60-5.80); Red Cell Distribution Width 13.9 % (11.0-16.0); SCAN SMEAR FLAG 1
[2023-05-20 23:13] LABS: Anion Gap 13 (12-20); Blood Urea Nitrogen 7 mg/dL (9-16); Calcium 7.5 mg/dL (8.4-10.2); Carbon Dioxide 31 mmol/L (22-29); Chloride 87 mmol/L (96-108); Creatinine Clr Calc Pharmacy 159.1; Estimated Glomerular Filt Rate > 60; Glucose Random 216 mg/dL (60-115); Magnesium 1.4 mg/dL (1.6-2.6); Phosphorus 2.5 mg/dL (2.7-4.5); Potassium 2.9 mmol/L (3.3-5.1); Sodium 128 mmol/L (135-145)
[2023-05-20 23:19] LABS: Platelet Count 95 X10*3/uL (160-400); SLIDE REVIEW VERIFIED; White Blood Count 7.1 X10*3/uL (4.8-10.8)
[2023-05-20] MEDS: Magnesium Sulfate/H2O 2 GM/50 ML PIGGYBACK IV (23:36)
[2023-05-21] VITALS (19 sets, daily range): BP systolic 94–131; BP diastolic 32–74; PULSE 81–99; RESP 14–22; TEMP 36.3–37.2; O2SAT 91–100; BMI 27.5
[2023-05-21] MEDS: Potassium Chloride ER 20 MEQ TAB.ER.PRT 40 MEQ PO (00:40)
[2023-05-21] MEDS: Albumin Human 25 % 100 ML IV ×2 (00:44→01:44)
[2023-05-21] MEDS: Octreotide Acetate 500 MCG in 0.9 % Sodium Chloride 500 ML 50.1 MCG IVCONT (03:07)
[2023-05-21] MEDS: Pantoprazole Sodium 40 MG/10 ML VIAL IVPUSH (05:28)
[2023-05-21 05:52] LABS: Hematocrit 22.1 % (42.0-52.0); Mean Corpuscular Hemoglobin 32.8 pg (27.0-33.0); PLT CLUMP 1; SCAN SMEAR FLAG 1
[2023-05-21 05:54] LABS: Basophils Absolute Auto 0.1 X10*3/uL (0.0-0.2); Basophils Percent Auto 0.8 % (0-2); Eosinophils Absolute Auto 0.1 X10*3/uL (0.0-0.4); Eosinophils Percent Auto 1.6 % (0-4); Imm Gran Abs Auto 0.03 X10*3/uL (0.00-0.03); Imm Gran Pct Auto 0.5 % (0.0-0.4); Lymphocytes Absolute Auto 0.6 X10*3/uL (1.2-4.9); Lymphocytes Percent Auto 9.4 % (20-40); Mean Corpuscular HGB Conc 36.2 g/dl (31.0-36.0); Mean Corpuscular Volume 90.6 fL (80.0-98.0); Mean Platelet Volume 11.2 fL (9.4-12.4); Monocytes Absolute Auto 0.4 X10*3/uL (0.1-1.2); Monocytes Percent Auto 6.6 % (2-11); NRBC Pct Auto 0.5 /100WBC (0.0-0.2); Neutrophils Absolute Auto 5.2 x10*3/uL (2.0-8.3); Neutrophils Percent Auto 81.1 % (45-73); Red Blood Count 2.44 X10*6/uL (4.60-5.80); Red Cell Distribution Width 13.9 % (11.0-16.0)
[2023-05-21 05:58] LABS: MANUAL DIFF FLAG NO; Platelet Count 97 X10*3/uL (160-400); White Blood Count 6.4 X10*3/uL (4.8-10.8)
[2023-05-21 06:01] LABS: Alanine Aminotransferase 30 U/L (0-40); Albumin Level 3.3 g/dL (3.5-5.0); Alkaline Phosphatase 79 U/L (39-117); Anion Gap 14 (12-20); Aspartate Amino Transferase 124 U/L (5-37); Bilirubin Total 3.5 mg/dL (0.0-1.0); Blood Urea Nitrogen 6 mg/dL (9-16); Calcium 7.6 mg/dL (8.4-10.2); Carbon Dioxide 29 mmol/L (22-29); Chloride 92 mmol/L (96-108); Creatinine Clr Calc Pharmacy 156.4; Estimated Glomerular Filt Rate > 60; Glucose Random 182 mg/dL (60-115); Magnesium 1.8 mg/dL (1.6-2.6); Phosphorus 1.7 mg/dL (2.7-4.5); Potassium 3.1 mmol/L (3.3-5.1); Sodium 132 mmol/L (135-145); Total Protein 5.9 g/dL (6.5-8.0)
[2023-05-21 07:27] LABS: Glucose, Whole Blood 190 mg/dL (60-115)
[2023-05-21] MEDS: Potassium Phosphate/NS 15 MMOL/250 ML PLAST..BAG 62.5 MMOL IV ×3 (07:29→17:54)
--- NOTE | 2023-05-21 07:37 | P.PNCC_ITS ---
Subjective Subjective Date of Service: 05/21/23 Interval History: no interval overnight events Critical Care Time (minutes): 60 Physical Exam 2 Vital Signs: Vital Signs: Last Vital Signs Temp 98.3 F 05/21/23 01:00 Pulse 98 05/21/23 07:00 Resp 20 05/21/23 07:00 BP 98/61 05/21/23 07:00 Pulse Ox 95 05/21/23 07:00 O2 Del Method Nasal Cannula 05/21/23 07:00 O2 Flow Rate 1 05/21/23 07:00 BMI result Body Mass Index 27.5 Const: General: cooperative, comfortable, no acute distress, well developed, alert and awake Orientation/consciousness: patient oriented x3 HEENT: Head: Yes normal to inspection, Yes normocephalic and Yes atraumatic Eyes: General: appearance normal, both eyes and all related structures Neck: Neck: Yes normal visual inspection and Yes supple Chest: Chest palpation & inspection: normal inspection of the chest Resp: Other: no rales, rhonchi, wheezing Effort & Inspection: normal respiratory effort Cardio: Rate: regular rate Rhythm: regular rhythm GI: Inspection: Yes normal to inspection, No Abdominal wall edema and No distended Palpation (GI): Soft to palpation, not firm, nontender, no guarding and not rigid : Male General Exam: Yes normal external exam Skin: General skin exam: no rashes or lesions noted Neuro: General: patient oriented x3, moves all extremities and no focal motor deficits Extrem: General: Yes normal to inspection and Yes no clubbing, cyanosis or edema Psych: Appearance: grossly normal Objective Data Labs 05/21/23 05:16 05/21/23 05:16 Labs: Laboratory Results - last 24 hr 05/20/23 05/20/23 05/20/23 07:32 07:32 07:32 WBC 8.5 RBC 2.70 L D Hgb 8.8 L D Hct 24.0 L D MCV 88.9 MCH 32.6 MCHC 36.7 H RDW 13.5 Plt Count 99 L MPV 10.7 Immature Gran % (Auto) 0.5 H Neut % (Auto) 79.6 H Lymph % (Auto) 13.0 L [place] % (Auto) 6.0 Eos % (Auto) 0.3 Baso % (Auto) 0.6 Lymph # (Auto) 1.1 L [place] # (Auto) 0.5 Eos # (Auto) 0.0 Baso # (Auto) 0.1 Abs Immat Gran (auto) 0.04 H Absolute Neuts (auto) 6.9 Absolute Nucleated RBC 0.000 Nucleated RBC % (auto) 0.0 Smear Tech's Comments VBG pH VBG pCO2 VBG pO2 VBG HCO3 VBG O2 Saturation VBG Base Excess Sodium 125 L 125 L Potassium 2.9 L 2.9 L Chloride 83 L Carbon Dioxide Anion Gap BUN Creatinine Estim Creat Clear Calc Estimated GFR POC Glucose Random Glucose Estimat Average Glucose Hemoglobin A1c % Osmolality Calcium Phosphorus Magnesium Total Bilirubin Direct Bilirubin AST ALT Alkaline Phosphatase Total Protein Albumin Beta-Hydroxybutyrate TSH 05/20/23 05/20/23 05/20/23 07:32 07:32 07:32 WBC RBC Hgb Hct MCV MCH MCHC RDW Plt Count MPV Immature Gran % (Auto) Neut % (Auto) Lymph % (Auto) [place] % (Auto) Eos % (Auto) Baso % (Auto) Lymph # (Auto) [place] # (Auto) Eos # (Auto) Baso # (Auto) Abs Immat Gran (auto) Absolute Neuts (auto) Absolute Nucleated RBC Nucleated RBC % (auto) Smear Tech's Comments VBG pH VBG pCO2 VBG pO2 VBG HCO3 VBG O2 Saturation VBG Base Excess Sodium Potassium Chloride 83 L Carbon Dioxide 30 H 30 H Anion Gap 15 15 BUN 11 Creatinine Estim Creat Clear Calc Estimated GFR POC Glucose Random Glucose Estimat Average Glucose Hemoglobin A1c % Osmolality Calcium Phosphorus Magnesium Total Bilirubin Direct Bilirubin AST ALT Alkaline Phosphatase Total Protein Albumin Beta-Hydroxybutyrate TSH 05/20/23 05/20/23 05/20/23 07:32 07:32 07:32 WBC RBC Hgb Hct MCV MCH MCHC RDW Plt Count MPV Immature Gran % (Auto) Neut % (Auto) Lymph % (Auto) [place] % (Auto) Eos % (Auto) Baso % (Auto) Lymph # (Auto) [place] # (Auto) Eos # (Auto) Baso # (Auto) Abs Immat Gran (auto) Absolute Neuts (auto) Absolute Nucleated RBC Nucleated RBC % (auto) Smear Tech's Comments VBG pH VBG pCO2 VBG pO2 VBG HCO3 VBG O2 Saturation VBG Base Excess Sodium Potassium Chloride Carbon Dioxide Anion Gap BUN 11 Creatinine 0.62 0.63 Estim Creat Clear Calc 148.8 146.5 Estimated GFR > 60 POC Glucose Random Glucose Estimat Average Glucose Hemoglobin A1c % Osmolality Calcium Phosphorus Magnesium Total Bilirubin Direct Bilirubin AST ALT Alkaline Phosphatase Total Protein Albumin Beta-Hydroxybutyrate TSH 05/20/23 05/20/23 05/20/23 07:32 07:32 07:32 WBC RBC Hgb Hct MCV MCH MCHC RDW Plt Count MPV Immature Gran % (Auto) Neut % (Auto) Lymph % (Auto) [place] % (Auto) Eos % (Auto) Baso % (Auto) Lymph # (Auto) [place] # (Auto) Eos # (Auto) Baso # (Auto) Abs Immat Gran (auto) Absolute Neuts (auto) Absolute Nucleated RBC Nucleated RBC % (auto) Smear Tech's Comments VBG pH VBG pCO2 VBG pO2 VBG HCO3 VBG O2 Saturation VBG Base Excess Sodium Potassium Chloride Carbon Dioxide Anion Gap BUN Creatinine Estim Creat Clear Calc Estimated GFR > 60 POC Glucose Random Glucose 247 H 247 H Estimat Average Glucose 126 Hemoglobin A1c % 6.0 Osmolality 270 L Calcium 7.2 L 7.2 L Phosphorus 1.5 L Magnesium 1.3 L* Total Bilirubin 5.9 H Direct Bilirubin 2.9 H AST 107 H ALT 32 Alkaline Phosphatase 105 Total Protein 6.0 L Albumin 2.6 L Beta-Hydroxybutyrate 0.62 H TSH 05/20/23 05/20/23 05/20/23 07:41 07:42 11:25 WBC 8.9 RBC 2.58 L Hgb 8.4 L Hct 23.0 L MCV 89.1 MCH 32.6 MCHC 36.5 H RDW 13.7 Plt Count 93 L MPV 11.3 Immature Gran % (Auto) 0.4 Neut % (Auto) 80.6 H Lymph % (Auto) 10.5 L [place] % (Auto) 7.9 Eos % (Auto) 0.3 Baso % (Auto) 0.3 Lymph # (Auto) 0.9 L [place] # (Auto) 0.7 Eos # (Auto) 0.0 Baso # (Auto) 0.0 Abs Immat Gran (auto) 0.04 H Absolute Neuts (auto) 7.2 Absolute Nucleated RBC 0.000 Nucleated RBC % (auto) 0.0 Smear Tech's Comments VBG pH 7.60 H* VBG pCO2 45 VBG pO2 77 VBG HCO3 45 H VBG O2 Saturation 98.0 VBG Base Excess 21.3 Sodium 124 L Potassium 2.8 L Chloride 83 L Carbon Dioxide 31 H Anion Gap 13 BUN 10 Creatinine 0.61 Estim Creat Clear Calc 151.3 Estimated GFR > 60 POC Glucose 264 H Random Glucose 223 H Estimat Average Glucose Hemoglobin A1c % Osmolality Calcium 7.3 L Phosphorus 1.1 L Magnesium 1.5 L Total Bilirubin 5.2 H Direct Bilirubin AST 108 H ALT 31 Alkaline Phosphatase 100 Total Protein 5.7 L Albumin 2.5 L Beta-Hydroxybutyrate TSH 0.50 05/20/23 05/20/23 05/20/23 11:47 16:43 16:49 WBC 8.5 RBC 2.60 L Hgb 8.6 L Hct 23.3 L MCV 89.6 MCH 33.1 H MCHC 36.9 H RDW 13.7 Plt Count 95 L MPV 11.4 Immature Gran % (Auto) 0.5 H Neut % (Auto) 79.8 H Lymph % (Auto) 11.9 L [place] % (Auto) 6.9 Eos % (Auto) 0.4 Baso % (Auto) 0.5 Lymph # (Auto) 1.0 L [place] # (Auto) 0.6 Eos # (Auto) 0.0 Baso # (Auto) 0.0 Abs Immat Gran (auto) 0.04 H Absolute Neuts (auto) 6.8 Absolute Nucleated RBC 0.020 H Nucleated RBC % (auto) 0.2 Smear Tech's Comments VBG pH VBG pCO2 VBG pO2 VBG HCO3 VBG O2 Saturation VBG Base Excess Sodium 127 L Potassium 3.0 L Chloride 86 L Carbon Dioxide 32 H Anion Gap 12 BUN 8 L Creatinine 0.57 Estim Creat Clear Calc 161.9 Estimated GFR > 60 POC Glucose 231 H 147 H Random Glucose 161 H Estimat Average Glucose Hemoglobin A1c % Osmolality Calcium 7.5 L Phosphorus Magnesium Total Bilirubin Direct Bilirubin AST ALT Alkaline Phosphatase Total Protein Albumin Beta-Hydroxybutyrate TSH 05/20/23 05/20/23 05/21/23 20:28 22:45 05:16 WBC 7.1 6.4 RBC 2.42 L 2.44 L Hgb 7.9 L 8.0 L Hct 21.6 L 22.1 L MCV 89.3 90.6 MCH 32.6 32.8 MCHC 36.6 H 36.2 H RDW 13.9 13.9 Plt Count 95 L 97 L MPV 11.0 11.2 Immature Gran % (Auto) 0.6 H 0.5 H Neut % (Auto) 80.6 H 81.1 H Lymph % (Auto) 10.3 L 9.4 L [place] % (Auto) 6.9 6.6 Eos % (Auto) 1.0 1.6 Baso % (Auto) 0.6 0.8 Lymph # (Auto) 0.7 L 0.6 L [place] # (Auto) 0.5 0.4 Eos # (Auto) 0.1 0.1 Baso # (Auto) 0.0 0.1 Abs Immat Gran (auto) 0.04 H 0.03 Absolute Neuts (auto) 5.7 5.2 Absolute Nucleated RBC 0.000 0.030 H Nucleated RBC % (auto) 0.0 0.5 H Smear Tech's Comments VERIFIED VBG pH VBG pCO2 VBG pO2 VBG HCO3 VBG O2 Saturation VBG Base Excess Sodium 128 L 132 L Potassium 2.9 L 3.1 L Chloride 87 L 92 L Carbon Dioxide 31 H 29 Anion Gap 13 14 BUN 7 L 6 L Creatinine 0.58 0.59 Estim Creat Clear Calc 159.1 156.4 Estimated GFR > 60 > 60 POC Glucose 182 H Random Glucose 216 H 182 H Estimat Average Glucose Hemoglobin A1c % Osmolality Calcium 7.5 L 7.6 L Phosphorus 2.5 L 1.7 L Magnesium 1.4 L* 1.8 Total Bilirubin 3.5 H Direct Bilirubin AST 124 H ALT 30 Alkaline Phosphatase 79 Total Protein 5.9 L Albumin 3.0 L 3.3 L Beta-Hydroxybutyrate TSH 05/21/23 05/21/23 05:17 07:24 WBC Cancelled RBC Cancelled Hgb Cancelled Hct Cancelled MCV Cancelled MCH Cancelled MCHC Cancelled RDW Cancelled Plt Count Cancelled MPV Cancelled Immature Gran % (Auto) Cancelled Neut % (Auto) Cancelled Lymph % (Auto) Cancelled [place] % (Auto) Cancelled Eos % (Auto) Cancelled Baso % (Auto) Cancelled Lymph # (Auto) Cancelled [place] # (Auto) Cancelled Eos # (Auto) Cancelled Baso # (Auto) Cancelled Abs Immat Gran (auto) Cancelled Absolute Neuts (auto) Cancelled Absolute Nucleated RBC Cancelled Nucleated RBC % (auto) Cancelled Smear Tech's Comments VBG pH VBG pCO2 VBG pO2 VBG HCO3 VBG O2 Saturation VBG Base Excess Sodium Potassium Chloride Carbon Dioxide Anion Gap BUN Creatinine Estim Creat Clear Calc Estimated GFR POC Glucose 190 H Random Glucose Estimat Average Glucose Hemoglobin A1c % Osmolality Calcium Phosphorus Magnesium Total Bilirubin Direct Bilirubin AST ALT Alkaline Phosphatase Total Protein Albumin Beta-Hydroxybutyrate TSH Progress Note: A&P Assessment and plan (1) GI bleed: Status: Acute (2) Anemia: Status: Acute Plan 47 Y M, alcohol misuse, p/w syncope x3, in the setting of hematemesis and hematochezia, found to have acute blood loss anemia, responded appropriately to transfusion N: no acute issues; seizure-like activity 05/19 PM, c/f alcohol withdrawal, on phenobarbital withdrawal protocol CV: intermittently hypotensive; s/p 3 pRBC , 2800 mL since admission, stable R: no acute issues GI: alcohol misuse, c/f upper GI bleed, possible variceal bleed; CTA A/P not demonstrating active GI bleed; continue octreotide, pantoprazole, and ceftriaxone; appreciate GI recommendations, possible EGD in near future : multiple electrolyte derangements, appears to be d/t decreased intake, improved; replete as needed H: acute blood loss anemia, transfuse as needed; avoiding chemical DVT prophylaxis in the setting of GI bleed ID: ceftriaxone for possible variceal bleed E: hyperglycemia; home insulin regimen and sliding scale Quality Stroke Does the patient have a stroke diagnosis?: No VTE Prior VTE?: No VTE Risk Level:: Medical - moderate - high VTE Device Contraindication: N/A - Device Ordered VTE Drug Contraindication: Treatment Not Tolerated
[2023-05-21] MEDS: PHENobarbitaL 15 MG TABLET 45 MG PO ×2 (07:38→21:41)
[2023-05-21] MEDS: 0.9 % Sodium Chloride Flush 3 ML SYRINGE IVFLUSH ×3 (07:41→19:54)
--- NOTE | 2023-05-21 07:44 | PM.CNNEP ---
History of Present Illness Reason for Consult Consult date: 05/21/23 Chief Complaint Chief complaint: GI bleed, acute blood loss anemia History of Present Illness Narrative: 47-year-old male admitted to ICU with low serum sodium. He initially presented for evaluation of syncopal episodes and vomiting blood. Patient admits to drinking up to four [employer] beers daily. CT of abdomen and pelvis found no evidence of any acute GI bleeding with no and acute inflammatory changes and nonspecific trace free fluid in the pelvis. Review of Systems Review of Systems 10 points ROS negative except for pertinent in [facility] Past Medical History Medical History Alcohol abuse Diabetes Social History Social History Household Members: Family Housing: House Do you presently have visiting nurse or other home services: No Alcohol intake: current Patient Tobacco Use Status: Never used Tobacco Second Hand Smoke Exposure: No Meds Allergies Allergy/AdvReac Type Severity Reaction Status Date / Time No Known Allergies Allergy Verified 05/19/23 13:00 Active Medications: Current Medications Acetaminophen (Acetaminophen 325 Mg Tablet) 650 mg PO Q6H PRN PRN Reason: Pain, Mild (Pain Scale 1-3) Benzonatate (Benzonatate 100 Mg Capsule) 100 mg PO TID PRN PRN Reason: Cough Dextrose (Dextrose 50 % 25 Gm/50 Ml Syringe) 25 gm IVPUSH Q15M PRN; Protocol PRN Reason: per Hypoglycemia Standing Ord. Docusate Sodium (Docusate Sodium 100 Mg Capsule) 100 mg PO DAILY PRN PRN Reason: Constipation Glucose (Glucose Gel 15 Gm Gel..Gram.) 15 gm PO Q15M PRN; Protocol PRN Reason: per Hypoglycemia Standing Ord. Octreotide Acetate 500 mcg/ (Sodium Chloride) 501 mls @ 50.1 mls/hr IVCONT .Q10H JONAH Last Admin: 05/21/23 03:07 Dose: 50 mcg/hr, 50.1 mls/hr Ceftriaxone Sodium 1 gm/ (Sodium Chloride) 50 mls @ 100 mls/hr IV Q24H JONAH Stop: 05/26/23 11:29 Last Infusion: 05/20/23 12:35 Dose: Infused Potassium Phosphate (Kphos) 15 mmol in 250 mls @ 62.5 mls/hr IV ONCE ONE Stop: 05/21/23 10:59 Last Admin: 05/21/23 07:29 Dose: 62.5 mls/hr Insulin Human Lispro (Insulin Lispro 100 Unit/Ml 3 Ml Vial) 0 unit SUBCUT QIDACHS [facility]; Protocol Last Admin: 05/20/23 20:32 Dose: 2 unit Melatonin (Melatonin 3 Mg Tablet) 6 mg PO BEDTIME PRN PRN Reason: Insomnia Ondansetron HCl (Ondansetron Hcl 4 Mg/2 Ml Vial) 4 mg IVPUSH Q8H PRN PRN Reason: Nausea and Vomiting Pantoprazole Sodium (Pantoprazole Sodium 40 Mg/10 Ml Vial) 40 mg IVPUSH BID@0630,1630 [facility] Last Admin: 05/21/23 05:28 Dose: 40 mg Pharmacy Consult (Consult Rx Etoh Phenob Im/Po) 1 each MISCELLANE ONCE PRN; Protocol PRN Reason: Consult order Phenobarbital (Phenobarbital 15 Mg Tablet) 45 mg PO BID [facility] Stop: 05/21/23 21:01 Last Admin: 05/21/23 07:38 Dose: 45 mg Phenobarbital (Phenobarbital 30 Mg Tablet) 30 mg PO BID [facility] Stop: 05/23/23 21:01 Phenobarbital (Phenobarbital 15 Mg Tablet) 15 mg PO DAILY [facility] Stop: 05/25/23 09:01 Sodium Chloride (0.9 % Sodium Chloride Flush 3 Ml Syringe) 3 ml IVFLUSH PSYCHIATRIC Last Admin: 05/21/23 07:41 Dose: 3 ml Home Medications Medication Instructions Recorded Confirmed Last Taken Type atorvastatin 40 mg tablet 40 mg PO DAILY 05/19/23 05/19/23 Unknown History insulin glargine 100 unit/mL (3 52 unit subcut DAILY 05/19/23 05/19/23 Unknown History mL) subcutaneous pen (Lantus Solostar U-100 Insulin) insulin lispro 100 unit/mL See Protocol subcut BIDAC 05/19/23 05/19/23 Unknown History subcutaneous pen Physical Exam Vital Signs: Last Vital Signs Temp 98.3 F 05/21/23 01:00 Pulse 98 05/21/23 07:00 Resp 20 05/21/23 07:00 BP 98/61 05/21/23 07:00 Pulse Ox 95 05/21/23 07:00 O2 Del Method Nasal Cannula 05/21/23 07:00 O2 Flow Rate 1 05/21/23 07:00 BMI result Body Mass Index 27.5 Const General: alert and awake HEENT Head: Yes normocephalic and Yes atraumatic Neck Neck: Yes supple Resp Auscultation: clear to auscultation bilaterally Cardio Heart sounds: S1 normal heart sound present and S2 normal heart sound present GI Palpation (GI): Soft to palpation and nontender Extrem General: Yes no pedal edema Results Lab Results 05/21/23 05:16 05/21/23 05:16 Lab results: Chemistry 05/19/23 05/19/23 05/20/23 12:53 16:54 07:32 Sodium 119 L* 123 L 125 L Potassium 2.7 L 2.7 L Carbon Dioxide 23 25 BUN 15 13 Creatinine 0.67 0.56 Calcium 8.0 L 7.4 L D Phosphorus 05/20/23 05/20/23 05/20/23 07:32 07:32 07:32 Sodium 125 L Potassium 2.9 L 2.9 L Carbon Dioxide 30 H 30 H BUN 11 Creatinine Calcium Phosphorus 05/20/23 05/20/23 05/20/23 07:32 07:32 07:32 Sodium Potassium Carbon Dioxide BUN 11 Creatinine 0.62 0.63 Calcium 7.2 L 7.2 L Phosphorus 1.5 L 05/20/23 05/20/23 05/20/23 11:25 16:49 22:45 Sodium 124 L 127 L 128 L Potassium 2.8 L 3.0 L 2.9 L Carbon Dioxide 31 H 32 H 31 H BUN 10 8 L 7 L Creatinine 0.61 0.57 0.58 Calcium 7.3 L 7.5 L 7.5 L Phosphorus 1.1 L 2.5 L 05/21/23 05:16 Sodium 132 L Potassium 3.1 L Carbon Dioxide 29 BUN 6 L Creatinine 0.59 Calcium 7.6 L Phosphorus 1.7 L Hematology 05/19/23 05/20/23 05/20/23 12:53 07:32 11:25 WBC 12.6 H 8.5 8.9 Hgb 5.7 L* 8.8 L D 8.4 L Plt Count 127 L 99 L 93 L 05/20/23 05/20/23 05/21/23 16:49 22:45 05:16 WBC 8.5 7.1 6.4 Hgb 8.6 L 7.9 L 8.0 L Plt Count 95 L 95 L 97 L 05/21/23 05:17 WBC Cancelled Hgb Cancelled Plt Count Cancelled Urinalysis 05/19/23 15:52 Urine Color Yellow Urine Appearance Clear Urine pH 6.5 Ur Specific [place] >= 1.030 H Urine Protein Negative Urine Glucose (UA) 500 H Urine Ketones 15 Urine Blood Trace H Urine Nitrite Negative Ur Leukocyte Esterase Negative Urine RBC 0-2 Urine WBC 0-5 Ur Squamous Epith Cells 0-2 Hyaline Casts 0-2 Urine Studies 05/19/23 15:52 Urine Osmolality 443 Assessment and Plan (1) Hyponatremia: Status: Acute (2) Hypokalemia: Status: Acute Plan hypotonic hyponatremia Jess < 20 Uosm > Sosm not c/w SIADH cv/w with pre renal state low K in the setting of GI losses and low Mg REC avoid rapid correction (6 meq/24 hours) restrict free water intake replace Mg and K follow kidney function and electrolytes Time Spent With Patient Time: Total time managing care of this patient today ____ minutes. Procedures Date of Service Date of Service: 05/21/23
[2023-05-21] MEDS: Insulin Lispro 100 UNIT/ML 3 ML VIAL SUBCUT ×3 (08:01→21:41)
[2023-05-21 08:14] LABS: Basophils Absolute Auto 0.1 X10*3/uL (0.0-0.2); Basophils Percent Auto 0.9 % (0-2); Eosinophils Percent Auto 1.5 % (0-4); Hematocrit 22.2 % (42.0-52.0); Mean Corpuscular Volume 90.2 fL (80.0-98.0); NRBC Pct Auto 0.4 /100WBC (0.0-0.2); PLT CLUMP 1; Red Blood Count 2.46 X10*6/uL (4.60-5.80); Red Cell Distribution Width 13.8 % (11.0-16.0); SCAN SMEAR FLAG 1
[2023-05-21 08:16] LABS: Eosinophils Absolute Auto 0.1 X10*3/uL (0.0-0.4); Imm Gran Abs Auto 0.05 X10*3/uL (0.00-0.03); Imm Gran Pct Auto 0.6 % (0.0-0.4); Lymphocytes Absolute Auto 0.9 X10*3/uL (1.2-4.9); Lymphocytes Percent Auto 11.2 % (20-40); Mean Corpuscular Hemoglobin 32.5 pg (27.0-33.0); Mean Platelet Volume 11.6 fL (9.4-12.4); Monocytes Absolute Auto 0.6 X10*3/uL (0.1-1.2); Monocytes Percent Auto 7.4 % (2-11); Neutrophils Absolute Auto 6.1 x10*3/uL (2.0-8.3); Neutrophils Percent Auto 78.4 % (45-73)
[2023-05-21 08:18] LABS: Platelet Count 100 X10*3/uL (160-400); White Blood Count 7.8 X10*3/uL (4.8-10.8)
[2023-05-21 08:19] LABS: MANUAL DIFF FLAG NO
[2023-05-21 08:31] LABS: Alanine Aminotransferase 35 U/L (0-40); Albumin Level 3.4 g/dL (3.5-5.0); Alkaline Phosphatase 81 U/L (39-117); Anion Gap 17 (12-20); Aspartate Amino Transferase 140 U/L (5-37); Bilirubin Total 3.9 mg/dL (0.0-1.0); Blood Urea Nitrogen 6 mg/dL (9-16); Calcium 7.9 mg/dL (8.4-10.2); Carbon Dioxide 27 mmol/L (22-29); Chloride 91 mmol/L (96-108); Creatinine Clr Calc Pharmacy 156.4; Estimated Glomerular Filt Rate > 60; Glucose Random 193 mg/dL (60-115); Magnesium 1.6 mg/dL (1.6-2.6); Phosphorus 1.7 mg/dL (2.7-4.5); Potassium 3.2 mmol/L (3.3-5.1); Sodium 132 mmol/L (135-145); Total Protein 6.3 g/dL (6.5-8.0)
[2023-05-21 09:02] LABS: INTERNATIONAL NORM RATIO 1.3 (0.9-1.1); Prothrombin Time 15.5 SEC (11.1-13.3)
--- NOTE | 2023-05-21 09:57 | HO.ANESPROP2 ---
HPI - Anesthesia Eval Consult details Narrative: GI bleed PMFSH Active Problems Active Problems: All Active Problems (Updated 05/21/23 @ 07:50 by Jc Correa MD) Hypokalemia (Acute) Hyponatremia (Acute) Alcoholic hepatitis (Acute) Hypotension (Acute) Syncope (Acute) Acute hyperglycemia (Acute) Hypomagnesemia (Acute) Acute hypokalemia (Acute) Acute hyponatremia (Acute) Anemia (Acute) GI bleed (Acute) Past Medical History Medical History Alcohol abuse Diabetes Family History Family history of problems with anesthesia: No Surgical History History of Problems with Anesthesia: No Social History Social History Household Members: Family Housing: House Do you presently have visiting nurse or other home services: No Alcohol intake: current Patient Tobacco Use Status: Never used Tobacco Second Hand Smoke Exposure: No Meds Allergies Allergy/AdvReac Type Severity Reaction Status Date / Time No Known Allergies Allergy Verified 05/19/23 13:00 Active Medications: Current Medications Acetaminophen (Acetaminophen 325 Mg Tablet) 650 mg PO Q6H PRN PRN Reason: Pain, Mild (Pain Scale 1-3) Benzonatate (Benzonatate 100 Mg Capsule) 100 mg PO TID PRN PRN Reason: Cough Dextrose (Dextrose 50 % 25 Gm/50 Ml Syringe) 25 gm IVPUSH Q15M PRN; Protocol PRN Reason: per Hypoglycemia Standing Ord. Docusate Sodium (Docusate Sodium 100 Mg Capsule) 100 mg PO DAILY PRN PRN Reason: Constipation Glucose (Glucose Gel 15 Gm Gel..Gram.) 15 gm PO Q15M PRN; Protocol PRN Reason: per Hypoglycemia Standing Ord. Octreotide Acetate 500 mcg/ (Sodium Chloride) 501 mls @ 50.1 mls/hr IVCONT .Q10H JONAH Last Admin: 05/21/23 03:07 Dose: 50 mcg/hr, 50.1 mls/hr Ceftriaxone Sodium 1 gm/ (Sodium Chloride) 50 mls @ 100 mls/hr IV Q24H JONAH Stop: 05/26/23 11:29 Last Infusion: 05/20/23 12:35 Dose: Infused Potassium Phosphate (Kphos) 15 mmol in 250 mls @ 62.5 mls/hr IV ONCE ONE Stop: 05/21/23 10:59 Last Admin: 05/21/23 07:29 Dose: 62.5 mls/hr Insulin Human Lispro (Insulin Lispro 100 Unit/Ml 3 Ml Vial) 0 unit SUBCUT QIDACHS [facility]; Protocol Last Admin: 05/21/23 08:01 Dose: 2 unit Melatonin (Melatonin 3 Mg Tablet) 6 mg PO BEDTIME PRN PRN Reason: Insomnia Ondansetron HCl (Ondansetron Hcl 4 Mg/2 Ml Vial) 4 mg IVPUSH Q8H PRN PRN Reason: Nausea and Vomiting Pantoprazole Sodium (Pantoprazole Sodium 40 Mg/10 Ml Vial) 40 mg IVPUSH BID@0630,1630 [facility] Last Admin: 05/21/23 05:28 Dose: 40 mg Pharmacy Consult (Consult Rx Etoh Phenob Im/Po) 1 each MISCELLANE ONCE PRN; Protocol PRN Reason: Consult order Phenobarbital (Phenobarbital 15 Mg Tablet) 45 mg PO BID [facility] Stop: 05/21/23 21:01 Last Admin: 05/21/23 07:38 Dose: 45 mg Phenobarbital (Phenobarbital 30 Mg Tablet) 30 mg PO BID [facility] Stop: 05/23/23 21:01 Phenobarbital (Phenobarbital 15 Mg Tablet) 15 mg PO DAILY [facility] Stop: 05/25/23 09:01 Sodium Chloride (0.9 % Sodium Chloride Flush 3 Ml Syringe) [facility] Admin: 05/21/23 07:41 Dose: 3 ml Home Medications Medication Instructions Recorded Confirmed Last Taken Type atorvastatin 40 mg tablet 40 mg PO DAILY 05/19/23 05/19/23 Unknown History insulin glargine 100 unit/mL (3 52 unit subcut DAILY 05/19/23 05/19/23 Unknown History mL) subcutaneous pen (Lantus Solostar U-100 Insulin) insulin lispro 100 unit/mL See Protocol subcut BIDAC 05/19/23 05/19/23 Unknown History subcutaneous pen Exam Exam Date and Time: May 21, 2023 0957 Height,Weight and Vital Signs: Height 5 ft 9 in Weight 84.4 kg Last Vital Signs Temp 97.4 F 05/21/23 08:00 Pulse 94 05/21/23 09:00 Resp 21 H 05/21/23 09:00 BP 103/64 05/21/23 09:00 Pulse Ox 97 05/21/23 09:00 O2 Del Method Nasal Cannula 05/21/23 09:00 O2 Flow Rate 1 05/21/23 09:00 Pertinent Lab Results Pertinent Lab Results: Laboratory Tests 05/19/23 05/19/23 05/19/23 12:53 13:04 13:17 WBC 12.6 H RBC 1.73 L Hgb 5.7 L* Hct 15.7 L* MCV 90.8 MCH 32.9 MCHC 36.3 H RDW 12.5 Plt Count 127 L MPV 11.1 Immature Gran % (Auto) 0.6 H Neut % (Auto) 84.2 H Lymph % (Auto) 8.3 L [place] % (Auto) 6.7 Eos % (Auto) 0.0 Baso % (Auto) 0.2 Lymph # (Auto) 1.0 L [place] # (Auto) 0.8 Eos # (Auto) 0.0 Baso # (Auto) 0.0 Abs Immat Gran (auto) 0.08 H Absolute Neuts (auto) 10.6 H Absolute Nucleated RBC 0.000 Nucleated RBC % (auto) 0.0 Smear Tech's Comments PT 16.8 H INR 1.4 H APTT 32.4 VBG pH VBG pCO2 VBG pO2 VBG HCO3 VBG O2 Saturation VBG Base Excess Sodium 119 L* Potassium 2.7 L Chloride 73 L Carbon Dioxide 23 Anion Gap 26 H BUN 15 Creatinine 0.67 Estim Creat Clear Calc 137.7 Estimated GFR > 60 POC Glucose 361 H* Random Glucose 368 H* Estimat Average Glucose Hemoglobin A1c % Osmolality Cancelled Calcium 8.0 L Phosphorus Magnesium 1.3 L* Total Bilirubin 2.1 H Direct Bilirubin 1.2 H AST 100 H ALT 31 Alkaline Phosphatase 121 H Troponin I High Sens 6.8 Total Protein 6.1 L Albumin 2.7 L Lipase 13 Beta-Hydroxybutyrate TSH Urine Color Urine Appearance Urine pH Ur Specific [place] Urine Protein Urine Glucose (UA) Urine Ketones Urine Blood Urine Nitrite Ur Leukocyte Esterase Urine RBC Urine WBC Ur Squamous Epith Cells Urine Bacteria Hyaline Casts Urine Osmolality Ur Random Sodium Ur Random Potassium Ur Random Chloride Stool Occult Blood Urine Opiates Screen Urine Fentanyl Screen Ur Barbiturates Screen Ur Phencyclidine Scrn Ur Amphetamines Screen U Benzodiazepines Scrn Urine Cocaine Screen U Marijuana (THC) Screen Ethyl Alcohol 181 Blood Type Antibody Screen Crossmatch 05/19/23 05/19/23 05/19/23 13:20 13:29 15:52 WBC RBC Hgb Hct MCV MCH MCHC RDW Plt Count MPV Immature Gran % (Auto) Neut % (Auto) Lymph % (Auto) [place] % (Auto) Eos % (Auto) Baso % (Auto) Lymph # (Auto) [place] # (Auto) Eos # (Auto) Baso # (Auto) Abs Immat Gran (auto) Absolute Neuts (auto) Absolute Nucleated RBC Nucleated RBC % (auto) Smear Tech's Comments PT INR APTT VBG pH VBG pCO2 VBG pO2 VBG HCO3 VBG O2 Saturation VBG Base Excess Sodium Potassium Chloride Carbon Dioxide Anion Gap BUN Creatinine Estim Creat Clear Calc Estimated GFR POC Glucose Random Glucose Estimat Average Glucose Hemoglobin A1c % Osmolality Calcium Phosphorus Magnesium Total Bilirubin Direct Bilirubin AST ALT Alkaline Phosphatase Troponin I High Sens Total Protein Albumin Lipase Beta-Hydroxybutyrate TSH Urine Color Yellow Urine Appearance Clear Urine pH 6.5 Ur Specific [place] >= 1.030 H Urine Protein Negative Urine Glucose (UA) 500 H Urine Ketones 15 Urine Blood Trace H Urine Nitrite Negative Ur Leukocyte Esterase Negative Urine RBC 0-2 Urine WBC 0-5 Ur Squamous Epith Cells 0-2 Urine Bacteria None Seen Hyaline Casts 0-2 Urine Osmolality 443 Ur Random Sodium < 20.0 Ur Random Potassium 17.9 Ur Random Chloride < 20.0 Stool Occult Blood POSITIVE Urine Opiates Screen Not Detected Urine Fentanyl Screen Not Detected Ur Barbiturates Screen Not Detected Ur Phencyclidine Scrn Not Detected Ur Amphetamines Screen Not Detected U Benzodiazepines Scrn Not Detected Urine Cocaine Screen Not Detected U Marijuana (THC) Screen Not Detected Ethyl Alcohol Blood Type O Positive Antibody Screen NEGATIVE Crossmatch See Detail 05/19/23 05/19/23 05/20/23 16:54 22:49 07:32 WBC 8.5 RBC 2.70 L D Hgb 8.8 L D Hct 24.0 L D MCV 88.9 MCH 32.6 MCHC 36.7 H RDW 13.5 Plt Count 99 L MPV 10.7 Immature Gran % (Auto) 0.5 H Neut % (Auto) 79.6 H Lymph % (Auto) 13.0 L [place] % (Auto) 6.0 Eos % (Auto) 0.3 Baso % (Auto) 0.6 Lymph # (Auto) 1.1 L [place] # (Auto) 0.5 Eos # (Auto) 0.0 Baso # (Auto) 0.1 Abs Immat Gran (auto) 0.04 H Absolute Neuts (auto) 6.9 Absolute Nucleated RBC 0.000 Nucleated RBC % (auto) 0.0 Smear Tech's Comments PT INR APTT VBG pH VBG pCO2 VBG pO2 VBG HCO3 VBG O2 Saturation VBG Base Excess Sodium 123 L 125 L Potassium 2.7 L Chloride 80 L Carbon Dioxide 25 Anion Gap 21 H BUN 13 Creatinine 0.56 Estim Creat Clear Calc 164.8 Estimated GFR > 60 POC Glucose 267 H Random Glucose 252 H Estimat Average Glucose Hemoglobin A1c % Osmolality Calcium 7.4 L D Phosphorus Magnesium Total Bilirubin Direct Bilirubin AST ALT Alkaline Phosphatase Troponin I High Sens Total Protein Albumin Lipase Beta-Hydroxybutyrate TSH Urine Color Urine Appearance Urine pH Ur Specific [place] Urine Protein Urine Glucose (UA) Urine Ketones Urine Blood Urine Nitrite Ur Leukocyte Esterase Urine RBC Urine WBC Ur Squamous Epith Cells Urine Bacteria Hyaline Casts Urine Osmolality Ur Random Sodium Ur Random Potassium Ur Random Chloride Stool Occult Blood Urine Opiates Screen Urine Fentanyl Screen Ur Barbiturates Screen Ur Phencyclidine Scrn Ur Amphetamines Screen U Benzodiazepines Scrn Urine Cocaine Screen U Marijuana (THC) Screen Ethyl Alcohol Blood Type Antibody Screen Crossmatch 05/20/23 05/20/23 05/20/23 07:32 07:32 07:32 WBC RBC Hgb Hct MCV MCH MCHC RDW Plt Count MPV Immature Gran % (Auto) Neut % (Auto) Lymph % (Auto) [place] % (Auto) Eos % (Auto) Baso % (Auto) Lymph # (Auto) [place] # (Auto) Eos # (Auto) Baso # (Auto) Abs Immat Gran (auto) Absolute Neuts (auto) Absolute Nucleated RBC Nucleated RBC % (auto) Smear Tech's Comments PT INR APTT VBG pH VBG pCO2 VBG pO2 VBG HCO3 VBG O2 Saturation VBG Base Excess Sodium 125 L Potassium 2.9 L 2.9 L Chloride 83 L 83 L Carbon Dioxide 30 H Anion Gap BUN Creatinine Estim Creat Clear Calc Estimated GFR POC Glucose Random Glucose Estimat Average Glucose Hemoglobin A1c % Osmolality Calcium Phosphorus Magnesium Total Bilirubin Direct Bilirubin AST ALT Alkaline Phosphatase Troponin I High Sens Total Protein Albumin Lipase Beta-Hydroxybutyrate TSH Urine Color Urine Appearance Urine pH Ur Specific [place] Urine Protein Urine Glucose (UA) Urine Ketones Urine Blood Urine Nitrite Ur Leukocyte Esterase Urine RBC Urine WBC Ur Squamous Epith Cells Urine Bacteria Hyaline Casts Urine Osmolality Ur Random Sodium Ur Random Potassium Ur Random Chloride Stool Occult Blood Urine Opiates Screen Urine Fentanyl Screen Ur Barbiturates Screen Ur Phencyclidine Scrn Ur Amphetamines Screen U Benzodiazepines Scrn Urine Cocaine Screen U Marijuana (THC) Screen Ethyl Alcohol Blood Type Antibody Screen Crossmatch 05/20/23 05/20/23 05/20/23 07:32 07:32 07:32 WBC RBC Hgb Hct MCV MCH MCHC RDW Plt Count MPV Immature Gran % (Auto) Neut % (Auto) Lymph % (Auto) [place] % (Auto) Eos % (Auto) Baso % (Auto) Lymph # (Auto) [place] # (Auto) Eos # (Auto) Baso # (Auto) Abs Immat Gran (auto) Absolute Neuts (auto) Absolute Nucleated RBC Nucleated RBC % (auto) Smear Tech's Comments PT INR APTT VBG pH VBG pCO2 VBG pO2 VBG HCO3 VBG O2 Saturation VBG Base Excess Sodium Potassium Chloride Carbon Dioxide 30 H Anion Gap 15 15 BUN 11 11 Creatinine 0.62 Estim Creat Clear Calc Estimated GFR POC Glucose Random Glucose Estimat Average Glucose Hemoglobin A1c % Osmolality Calcium Phosphorus Magnesium Total Bilirubin Direct Bilirubin AST ALT Alkaline Phosphatase Troponin I High Sens Total Protein Albumin Lipase Beta-Hydroxybutyrate TSH Urine Color Urine Appearance Urine pH Ur Specific [place] Urine Protein Urine Glucose (UA) Urine Ketones Urine Blood Urine Nitrite Ur Leukocyte Esterase Urine RBC Urine WBC Ur Squamous Epith Cells Urine Bacteria Hyaline Casts Urine Osmolality Ur Random Sodium Ur Random Potassium Ur Random Chloride Stool Occult Blood Urine Opiates Screen Urine Fentanyl Screen Ur Barbiturates Screen Ur Phencyclidine Scrn Ur Amphetamines Screen U Benzodiazepines Scrn Urine Cocaine Screen U Marijuana (THC) Screen Ethyl Alcohol Blood Type Antibody Screen Crossmatch 05/20/23 05/20/23 05/20/23 07:32 07:32 07:32 WBC RBC Hgb Hct MCV MCH MCHC RDW Plt Count MPV Immature Gran % (Auto) Neut % (Auto) Lymph % (Auto) [place] % (Auto) Eos % (Auto) Baso % (Auto) Lymph # (Auto) [place] # (Auto) Eos # (Auto) Baso # (Auto) Abs Immat Gran (auto) Absolute Neuts (auto) Absolute Nucleated RBC Nucleated RBC % (auto) Smear Tech's Comments PT INR APTT VBG pH VBG pCO2 VBG pO2 VBG HCO3 VBG O2 Saturation VBG Base Excess Sodium Potassium Chloride Carbon Dioxide Anion Gap BUN Creatinine 0.63 Estim Creat Clear Calc 148.8 146.5 Estimated GFR > 60 > 60 POC Glucose Random Glucose 247 H Estimat Average Glucose Hemoglobin A1c % Osmolality Calcium Phosphorus Magnesium Total Bilirubin Direct Bilirubin AST ALT Alkaline Phosphatase Troponin I High Sens Total Protein Albumin Lipase Beta-Hydroxybutyrate TSH Urine Color Urine Appearance Urine pH Ur Specific [place] Urine Protein Urine Glucose (UA) Urine Ketones Urine Blood Urine Nitrite Ur Leukocyte Esterase Urine RBC Urine WBC Ur Squamous Epith Cells Urine Bacteria Hyaline Casts Urine Osmolality Ur Random Sodium Ur Random Potassium Ur Random Chloride Stool Occult Blood Urine Opiates Screen Urine Fentanyl Screen Ur Barbiturates Screen Ur Phencyclidine Scrn Ur Amphetamines Screen U Benzodiazepines Scrn Urine Cocaine Screen U Marijuana (THC) Screen Ethyl Alcohol Blood Type Antibody Screen Crossmatch 05/20/23 05/20/23 05/20/23 07:32 07:32 07:41 WBC RBC Hgb Hct MCV MCH MCHC RDW Plt Count MPV Immature Gran % (Auto) Neut % (Auto) Lymph % (Auto) [place] % (Auto) Eos % (Auto) Baso % (Auto) Lymph # (Auto) [place] # (Auto) Eos # (Auto) Baso # (Auto) Abs Immat Gran (auto) Absolute Neuts (auto) Absolute Nucleated RBC Nucleated RBC % (auto) Smear Tech's Comments PT INR APTT VBG pH VBG pCO2 VBG pO2 VBG HCO3 VBG O2 Saturation VBG Base Excess Sodium Potassium Chloride Carbon Dioxide Anion Gap BUN Creatinine Estim Creat Clear Calc Estimated GFR POC Glucose 264 H Random Glucose 247 H Estimat Average Glucose 126 Hemoglobin A1c % 6.0 Osmolality 270 L Calcium 7.2 L 7.2 L Phosphorus 1.5 L Magnesium 1.3 L* Total Bilirubin 5.9 H Direct Bilirubin 2.9 H AST 107 H ALT 32 Alkaline Phosphatase 105 Troponin I High Sens Total Protein 6.0 L Albumin 2.6 L Lipase Beta-Hydroxybutyrate 0.62 H TSH Urine Color Urine Appearance Urine pH Ur Specific [place] Urine Protein Urine Glucose (UA) Urine Ketones Urine Blood Urine Nitrite Ur Leukocyte Esterase Urine RBC Urine WBC Ur Squamous Epith Cells Urine Bacteria Hyaline Casts Urine Osmolality Ur Random Sodium Ur Random Potassium Ur Random Chloride Stool Occult Blood Urine Opiates Screen Urine Fentanyl Screen Ur Barbiturates Screen Ur Phencyclidine Scrn Ur Amphetamines Screen U Benzodiazepines Scrn Urine Cocaine Screen U Marijuana (THC) Screen Ethyl Alcohol Blood Type Antibody Screen Crossmatch 05/20/23 05/20/23 05/20/23 07:42 11:25 11:47 WBC 8.9 RBC 2.58 L Hgb 8.4 L Hct 23.0 L MCV 89.1 MCH 32.6 MCHC 36.5 H RDW 13.7 Plt Count 93 L MPV 11.3 Immature Gran % (Auto) 0.4 Neut % (Auto) 80.6 H Lymph % (Auto) 10.5 L [place] % (Auto) 7.9 Eos % (Auto) 0.3 Baso % (Auto) 0.3 Lymph # (Auto) 0.9 L [place] # (Auto) 0.7 Eos # (Auto) 0.0 Baso # (Auto) 0.0 Abs Immat Gran (auto) 0.04 H Absolute Neuts (auto) 7.2 Absolute Nucleated RBC 0.000 Nucleated RBC % (auto) 0.0 Smear Tech's Comments PT INR APTT VBG pH 7.60 H* VBG pCO2 45 VBG pO2 77 VBG HCO3 45 H VBG O2 Saturation 98.0 VBG Base Excess 21.3 Sodium 124 L Potassium 2.8 L Chloride 83 L Carbon Dioxide 31 H Anion Gap 13 BUN 10 Creatinine 0.61 Estim Creat Clear Calc 151.3 Estimated GFR > 60 POC Glucose 231 H Random Glucose 223 H Estimat Average Glucose Hemoglobin A1c % Osmolality Calcium 7.3 L Phosphorus 1.1 L Magnesium 1.5 L Total Bilirubin 5.2 H Direct Bilirubin AST 108 H ALT 31 Alkaline Phosphatase 100 Troponin I High Sens Total Protein 5.7 L Albumin 2.5 L Lipase Beta-Hydroxybutyrate TSH 0.50 Urine Color Urine Appearance Urine pH Ur Specific [place] Urine Protein Urine Glucose (UA) Urine Ketones Urine Blood Urine Nitrite Ur Leukocyte Esterase Urine RBC Urine WBC Ur Squamous Epith Cells Urine Bacteria Hyaline Casts Urine Osmolality Ur Random Sodium Ur Random Potassium Ur Random Chloride Stool Occult Blood Urine Opiates Screen Urine Fentanyl Screen Ur Barbiturates Screen Ur Phencyclidine Scrn Ur Amphetamines Screen U Benzodiazepines Scrn Urine Cocaine Screen U Marijuana (THC) Screen Ethyl Alcohol Blood Type Antibody Screen Crossmatch 05/20/23 05/20/23 05/20/23 16:43 16:49 20:28 WBC 8.5 RBC 2.60 L Hgb 8.6 L Hct 23.3 L MCV 89.6 MCH 33.1 H MCHC 36.9 H RDW 13.7 Plt Count 95 L MPV 11.4 Immature Gran % (Auto) 0.5 H Neut % (Auto) 79.8 H Lymph % (Auto) 11.9 L [place] % (Auto) 6.9 Eos % (Auto) 0.4 Baso % (Auto) 0.5 Lymph # (Auto) 1.0 L [place] # (Auto) 0.6 Eos # (Auto) 0.0 Baso # (Auto) 0.0 Abs Immat Gran (auto) 0.04 H Absolute Neuts (auto) 6.8 Absolute Nucleated RBC 0.020 H Nucleated RBC % (auto) 0.2 Smear Tech's Comments PT INR APTT VBG pH VBG pCO2 VBG pO2 VBG HCO3 VBG O2 Saturation VBG Base Excess Sodium 127 L Potassium 3.0 L Chloride 86 L Carbon Dioxide 32 H Anion Gap 12 BUN 8 L Creatinine 0.57 Estim Creat Clear Calc 161.9 Estimated GFR > 60 POC Glucose 147 H 182 H Random Glucose 161 H Estimat Average Glucose Hemoglobin A1c % Osmolality Calcium 7.5 L Phosphorus Magnesium Total Bilirubin Direct Bilirubin AST ALT Alkaline Phosphatase Troponin I High Sens Total Protein Albumin Lipase Beta-Hydroxybutyrate TSH Urine Color Urine Appearance Urine pH Ur Specific [place] Urine Protein Urine Glucose (UA) Urine Ketones Urine Blood Urine Nitrite Ur Leukocyte Esterase Urine RBC Urine WBC Ur Squamous Epith Cells Urine Bacteria Hyaline Casts Urine Osmolality Ur Random Sodium Ur Random Potassium Ur Random Chloride Stool Occult Blood Urine Opiates Screen Urine Fentanyl Screen Ur Barbiturates Screen Ur Phencyclidine Scrn Ur Amphetamines Screen U Benzodiazepines Scrn Urine Cocaine Screen U Marijuana (THC) Screen Ethyl Alcohol Blood Type Antibody Screen Crossmatch 05/20/23 05/21/23 05/21/23 22:45 05:16 05:17 WBC 7.1 6.4 Cancelled RBC 2.42 L 2.44 L Cancelled Hgb 7.9 L 8.0 L Cancelled Hct 21.6 L 22.1 L Cancelled MCV 89.3 90.6 Cancelled MCH 32.6 32.8 Cancelled MCHC 36.6 H 36.2 H Cancelled RDW 13.9 13.9 Cancelled Plt Count 95 L 97 L Cancelled MPV 11.0 11.2 Cancelled Immature Gran % (Auto) 0.6 H 0.5 H Cancelled Neut % (Auto) 80.6 H 81.1 H Cancelled Lymph % (Auto) 10.3 L 9.4 L Cancelled [place] % (Auto) 6.9 6.6 Cancelled Eos % (Auto) 1.0 1.6 Cancelled Baso % (Auto) 0.6 0.8 Cancelled Lymph # (Auto) 0.7 L 0.6 L Cancelled [place] # (Auto) 0.5 0.4 Cancelled Eos # (Auto) 0.1 0.1 Cancelled Baso # (Auto) 0.0 0.1 Cancelled Abs Immat Gran (auto) 0.04 H 0.03 Cancelled Absolute Neuts (auto) 5.7 5.2 Cancelled Absolute Nucleated RBC 0.000 0.030 H Cancelled Nucleated RBC % (auto) 0.0 0.5 H Cancelled Smear Tech's Comments VERIFIED PT INR APTT VBG pH VBG pCO2 VBG pO2 VBG HCO3 VBG O2 Saturation VBG Base Excess Sodium 128 L 132 L Potassium 2.9 L 3.1 L Chloride 87 L 92 L Carbon Dioxide 31 H 29 Anion Gap 13 14 BUN 7 L 6 L Creatinine 0.58 0.59 Estim Creat Clear Calc 159.1 156.4 Estimated GFR > 60 > 60 POC Glucose Random Glucose 216 H 182 H Estimat Average Glucose Hemoglobin A1c % Osmolality Calcium 7.5 L 7.6 L Phosphorus 2.5 L 1.7 L Magnesium 1.4 L* 1.8 Total Bilirubin 3.5 H Direct Bilirubin AST 124 H ALT 30 Alkaline Phosphatase 79 Troponin I High Sens Total Protein 5.9 L Albumin 3.0 L 3.3 L Lipase Beta-Hydroxybutyrate TSH Urine Color Urine Appearance Urine pH Ur Specific [place] Urine Protein Urine Glucose (UA) Urine Ketones Urine Blood Urine Nitrite Ur Leukocyte Esterase Urine RBC Urine WBC Ur Squamous Epith Cells Urine Bacteria Hyaline Casts Urine Osmolality Ur Random Sodium Ur Random Potassium Ur Random Chloride Stool Occult Blood Urine Opiates Screen Urine Fentanyl Screen Ur Barbiturates Screen Ur Phencyclidine Scrn Ur Amphetamines Screen U Benzodiazepines Scrn Urine Cocaine Screen U Marijuana (THC) Screen Ethyl Alcohol Blood Type Antibody Screen Crossmatch 05/21/23 05/21/23 05/21/23 07:24 08:04 08:41 WBC 7.8 RBC 2.46 L Hgb 8.0 L Hct 22.2 L MCV 90.2 MCH 32.5 MCHC 36.0 RDW 13.8 Plt Count 100 L MPV 11.6 Immature Gran % (Auto) 0.6 H Neut % (Auto) 78.4 H Lymph % (Auto) 11.2 L [place] % (Auto) 7.4 Eos % (Auto) 1.5 Baso % (Auto) 0.9 Lymph # (Auto) 0.9 L [place] # (Auto) 0.6 Eos # (Auto) 0.1 Baso # (Auto) 0.1 Abs Immat Gran (auto) 0.05 H Absolute Neuts (auto) 6.1 Absolute Nucleated RBC 0.030 H Nucleated RBC % (auto) 0.4 H Smear Tech's Comments PT 15.5 H INR 1.3 H APTT VBG pH VBG pCO2 VBG pO2 VBG HCO3 VBG O2 Saturation VBG Base Excess Sodium 132 L Potassium 3.2 L Chloride 91 L Carbon Dioxide 27 Anion Gap 17 BUN 6 L Creatinine 0.59 Estim Creat Clear Calc 156.4 Estimated GFR > 60 POC Glucose 190 H Random Glucose 193 H Estimat Average Glucose Hemoglobin A1c % Osmolality Calcium 7.9 L Phosphorus 1.7 L Magnesium 1.6 Total Bilirubin 3.9 H Direct Bilirubin AST 140 H ALT 35 Alkaline Phosphatase 81 Troponin I High Sens Total Protein 6.3 L Albumin 3.4 L Lipase Beta-Hydroxybutyrate TSH Urine Color Urine Appearance Urine pH Ur Specific [place] Urine Protein Urine Glucose (UA) Urine Ketones Urine Blood Urine Nitrite Ur Leukocyte Esterase Urine RBC Urine WBC Ur Squamous Epith Cells Urine Bacteria Hyaline Casts Urine Osmolality Ur Random Sodium Ur Random Potassium Ur Random Chloride Stool Occult Blood Urine Opiates Screen Urine Fentanyl Screen Ur Barbiturates Screen Ur Phencyclidine Scrn Ur Amphetamines Screen U Benzodiazepines Scrn Urine Cocaine Screen U Marijuana (THC) Screen Ethyl Alcohol Blood Type Antibody Screen Crossmatch Airway Mallampati Class: II TM Dist: >3cm Neck ROM: Full Heart: RRR Lungs: CTA Assessment and Plan Assessment Anesthesia Assessment: Anesthesia Plan Discussed and Chart Reviewed Final Anesthetic Review Family History of Problems with Anesthesia: No History of Problems with Anesthesia: No NPO: Yes ASA Class: III Final Preanesthetic Review: No Changes in Pt Med Stat, Meds/Allgs Chart Reviewed, Consent Obtained/Reviewed and Anes Risks/Benef Reviewed Patient Risk: High Procedure Risk: Low Anesthetic Plan Anesthetic Plan: MAC: Disposition: Inp. Admit - ICU
--- NOTE | 2023-05-21 10:17 | P.OP_ITS ---
Operative Note Operative Note Date of Service: 05/21/23 Narrative: Procedure: Esophagogastroduodenoscopy Endoscopist: Sherie Charles MD Indication: GIB Anesthesia Provider: Dr Brando Curtis Anesthesia Type: MAC ?? EGD Procedure:?? The procedure, indications, preparation and potential complications were reviewed with the patient, who indicated understanding and gave written informed consent to proceed. solutions engineer assisted with the encounter. A physical exam was performed. The endoscope was introduced through the mouth, and advanced to the second part of duodenum. The mucosa was carefully examined on slow withdrawal of the endoscope. The patient tolerated the procedure well. There were no immediate complications.? ? EGD Findings:? * Esophagus:? Mild erythema and erosions were noted at the GE junction at 37 cm. Clean based ulcer measuring 10 mm at 35 cm. A single small varix was noted in the lower esophagus without any high risk stigmata which flattened on insufflation. * Stomach:? Diffuse congestion and erythema in mosaic pattern consistent with portal hypertensive gastropathy was noted in the whole stomach. * Duodenum:? Normal mucosa was noted in the whole of the examined duodenum. ? EGD Impressions:? * Healing esophageal ulcer vs Valarie Weber tear * Small esophageal varix * Grade A esophagitis * Portal hypertensive gastropathy * Normal duodenum ?? Recommendations:?? * UGIB likely from MWT from retching and vomiting which is now healing * NSBB not recommended for low risk small varix. Will need repeat EGD in 1 year for surveillance if continues to drink. * Can switch PPI to PO. Cont pantoprazole 40 BID x 4 weeks and then 20 once daily * Add liquid carafate 1g QID x 7 days * Cont Ceftriaxone for total of 7 days for infection ppx in this pt with liver disease and GIB. Can switch to PO cipro if discharged before that. * Ok to discontinue octreotide as the bleeding was not from the small varix. * Strong counseling for etOH cessation. Consider addiction med consultation. Above has been reviewed with the patient.
--- NOTE | 2023-05-21 10:17 | MHC.SHP ---
Pre-Procedural Eval Section A Date of Service: 05/21/23 The patient is an INPATIENT: Yes The History & Physical has been completed within 30 days and I have reviewed it.: Yes Section B Chief Complaint: GI bleed, acute blood loss anemia Allergies: Allergies Allergy/AdvReac Type Severity Reaction Status Date / Time No Known Allergies Allergy Verified 05/19/23 13:00 Plan Diagnosis/Plan: Unchanged I have reviewed the history and physical and performed a pertinent physical examination on my patient. No changes have occurred unless specified. Time Spent With Patient Time: Total time managing care of this patient today ____ minutes.
--- NOTE | 2023-05-21 10:17 | W.PM.OPN ---
Operative Note Operative Note Date of Service: 05/21/23 Narrative: Procedure: Esophagogastroduodenoscopy Endoscopist: Sherie Charles MD Indication: GIB Anesthesia Provider: Dr Brando Curtis Anesthesia Type: MAC ?? EGD Procedure:?? The procedure, indications, preparation and potential complications were reviewed with the patient, who indicated understanding and gave written informed consent to proceed. medic technician assisted with the encounter. A physical exam was performed. The endoscope was introduced through the mouth, and advanced to the second part of duodenum. The mucosa was carefully examined on slow withdrawal of the endoscope. The patient tolerated the procedure well. There were no immediate complications.? ? EGD Findings:? Esophagus:? Mild erythema and erosions were noted at the GE junction at 37 cm. Clean based ulcer measuring 10 mm at 35 cm. A single small varix was noted in the lower esophagus without any high risk stigmata which flattened on insufflation. Stomach:? Diffuse congestion and erythema in mosaic pattern consistent with portal hypertensive gastropathy was noted in the whole stomach. Duodenum:? Normal mucosa was noted in the whole of the examined duodenum. ? EGD Impressions:? Healing esophageal ulcer vs Valarie Weber tear Small esophageal varix Grade A esophagitis Portal hypertensive gastropathy Normal duodenum ?? Recommendations:?? UGIB likely from MWT from retching and vomiting which is now healing NSBB not recommended for low risk small varix. Will need repeat EGD in 1 year for surveillance if continues to drink. Can switch PPI to PO. Cont pantoprazole 40 BID x 4 weeks and then 20 once daily Add liquid carafate 1g QID x 7 days Cont Ceftriaxone for total of 7 days for infection ppx in this pt with liver disease and GIB. Can switch to PO cipro if discharged before that. Ok to discontinue octreotide as the bleeding was not from the small varix. Strong counseling for etOH cessation. Consider addiction med consultation. Above has been reviewed with the patient.
--- NOTE | 2023-05-21 10:23 | PC.NURSE ---
Addendum entered by Tiffanie Brown RN 05/21/23 16:40: Pt education provided about EGD results and alcohol use cessation by MD with solar sales estimator. Pt seen by recovery team assistant 16:00. Addendum entered by Tiffanie Brown RN 05/21/23 11:06: Pt returned from EGD procedure 10:45. Eyes open to name, denies pain, VSS. Octreotide gtt d/c'd per MD. Original Note: Assumed care of patient 0700 08:00 automation and controls manager called to bedside for pt. Teaching provided to explain plan for EGD procedure at 10:00am. Pt questions answered. Pt A+Ox3, mild anxiety CIWA 1 10:05 GI MD, Anesthesia MD, GI RN and JOB PRINTER to pt bedside. automation and controls manager present. Pre-procedure teaching and H+P review completed. Consent obtained. RN to RN report given. Per Anesthesia MD, paused octreotide gtt and Kphos infusion prior to transport to EGD. Will resume per MD after procedure. Pt left room with GI MD, Anesthesia MD and RN at 10:20.
[2023-05-21] MEDS: cefTRIAXone sodium 1 GM in 0.9 % Sodium Chloride 50 ML IV (10:53)
[2023-05-21 11:57] LABS: Glucose, Whole Blood 127 mg/dL (60-115)
[2023-05-21 16:10] LABS: Glucose, Whole Blood 292 mg/dL (60-115)
[2023-05-21] MEDS: Sucralfate 1 GM TABLET PO ×2 (16:45→21:41)
[2023-05-21] MEDS: Omeprazole 40 MG CAPSULE.DR PO (16:45)
--- NOTE | 2023-05-21 18:25 | MHC.RECOVSUP ---
Met with pt to review recovery resources. Pt informs he is not currently interested in any programs and plans to continue working in [employer] all day, but is willing to reach out to a motor coach chauffeur if he feels he needs help. Pt has no other questions or concerns at this time.
[2023-05-21 19:49] LABS: Glucose, Whole Blood 217 mg/dL (60-115)
[2023-05-21 19:58] LABS: Basophils Absolute Auto 0.1 X10*3/uL (0.0-0.2); Basophils Percent Auto 0.5 % (0-2); Eosinophils Absolute Auto 0.2 X10*3/uL (0.0-0.4); Eosinophils Percent Auto 1.7 % (0-4); Hematocrit 23.7 % (42.0-52.0); Hemoglobin 8.5 g/dl (14.0-18.0); Imm Gran Abs Auto 0.04 X10*3/uL (0.00-0.03); Imm Gran Pct Auto 0.4 % (0.0-0.4); Lymphocytes Absolute Auto 1.2 X10*3/uL (1.2-4.9); Lymphocytes Percent Auto 12.5 % (20-40); MANUAL DIFF FLAG SCAN; Mean Corpuscular HGB Conc 35.9 g/dl (31.0-36.0); Mean Corpuscular Hemoglobin 32.6 pg (27.0-33.0); Mean Corpuscular Volume 90.8 fL (80.0-98.0); Mean Platelet Volume 10.5 fL (9.4-12.4); Monocytes Absolute Auto 0.8 X10*3/uL (0.1-1.2); Monocytes Percent Auto 8.4 % (2-11); NRBC Pct Auto 0.4 /100WBC (0.0-0.2); Neutrophils Absolute Auto 7.2 x10*3/uL (2.0-8.3); Neutrophils Percent Auto 76.5 % (45-73); PLT CLUMP 1; Red Blood Count 2.61 X10*6/uL (4.60-5.80); Red Cell Distribution Width 13.6 % (11.0-16.0); SCAN SMEAR FLAG 1
[2023-05-21 20:10] LABS: Alanine Aminotransferase 37 U/L (0-40); Albumin Level 3.4 g/dL (3.5-5.0); Alkaline Phosphatase 87 U/L (39-117); Anion Gap 15 (12-20); Aspartate Amino Transferase 131 U/L (5-37); Bilirubin Total 3.2 mg/dL (0.0-1.0); Blood Urea Nitrogen 6 mg/dL (9-16); Calcium 7.8 mg/dL (8.4-10.2); Carbon Dioxide 27 mmol/L (22-29); Chloride 92 mmol/L (96-108); Creatinine Clr Calc Pharmacy 146.5; Estimated Glomerular Filt Rate > 60; Glucose Random 221 mg/dL (60-115); Magnesium 1.5 mg/dL (1.6-2.6); Phosphorus 2.5 mg/dL (2.7-4.5); Potassium 3.3 mmol/L (3.3-5.1); Sodium 131 mmol/L (135-145); Total Protein 6.3 g/dL (6.5-8.0)
[2023-05-21 20:20] LABS: Platelet Count 115 X10*3/uL (160-400); White Blood Count 9.4 X10*3/uL (4.8-10.8)
[2023-05-21 20:21] LABS: SLIDE REVIEW VERIFIED
[2023-05-21] MEDS: Benzonatate 100 MG CAPSULE PO (23:29)
[2023-05-22] VITALS (7 sets, daily range): BP systolic 98–138; BP diastolic 63–78; PULSE 78–108; RESP 16–22; TEMP 36.7–37.2; O2SAT 96–99
[2023-05-22] MEDS: Omeprazole 40 MG CAPSULE.DR PO ×2 (05:43→16:20)
[2023-05-22 07:44] LABS: Glucose, Whole Blood 130 mg/dL (60-115)
[2023-05-22 07:52] LABS: MANUAL DIFF FLAG NO
[2023-05-22 08:09] LABS: Basophils Absolute Auto 0.1 X10*3/uL (0.0-0.2); Basophils Percent Auto 0.8 % (0-2); Eosinophils Absolute Auto 0.2 X10*3/uL (0.0-0.4); Eosinophils Percent Auto 2.3 % (0-4); Hemoglobin 8.6 g/dl (14.0-18.0); Imm Gran Abs Auto 0.05 X10*3/uL (0.00-0.03); Imm Gran Pct Auto 0.5 % (0.0-0.4); Lymphocytes Absolute Auto 1.2 X10*3/uL (1.2-4.9); Lymphocytes Percent Auto 12.7 % (20-40); Mean Corpuscular HGB Conc 35.8 g/dl (31.0-36.0); Mean Platelet Volume 11.1 fL (9.4-12.4); Monocytes Absolute Auto 0.9 X10*3/uL (0.1-1.2); NRBC Pct Auto 0.5 /100WBC (0.0-0.2); Neutrophils Absolute Auto 6.8 x10*3/uL (2.0-8.3); Neutrophils Percent Auto 73.7 % (45-73); Platelet Count 124 X10*3/uL (160-400); Red Blood Count 2.61 X10*6/uL (4.60-5.80); Red Cell Distribution Width 13.5 % (11.0-16.0); White Blood Count 9.2 X10*3/uL (4.8-10.8)
[2023-05-22 08:47] LABS: Alanine Aminotransferase 39 U/L (0-40); Albumin Level 3.3 g/dL (3.5-5.0); Alkaline Phosphatase 88 U/L (39-117); Anion Gap 14 (12-20); Aspartate Amino Transferase 130 U/L (5-37); Bilirubin Total 4.2 mg/dL (0.0-1.0); Blood Urea Nitrogen 5 mg/dL (9-16); Calcium 7.8 mg/dL (8.4-10.2); Carbon Dioxide 28 mmol/L (22-29); Chloride 91 mmol/L (96-108); Creatinine Clr Calc Pharmacy 164.8; Estimated Glomerular Filt Rate > 60; Glucose Random 132 mg/dL (60-115); Magnesium 1.4 mg/dL (1.6-2.6); Phosphorus 2.4 mg/dL (2.7-4.5); Potassium 3.1 mmol/L (3.3-5.1); Sodium 130 mmol/L (135-145); Total Protein 6.3 g/dL (6.5-8.0)
--- NOTE | 2023-05-22 09:40 | MHC.CM.PN ---
Pt SSO, met pt with switch repairer. Pt lives at home with his sister, is self-care. Pt states his sister is HCP, copy requested. Returning home is the goal when medically cleared. Pts sister will transport him home. PCP: Dr. Brody (pt doesn't know the last name)
[2023-05-22] MEDS: Sucralfate 1 GM TABLET PO ×4 (09:52→20:40)
[2023-05-22] MEDS: PHENobarbitaL 30 MG TABLET PO ×2 (09:52→20:40)
[2023-05-22] MEDS: Magnesium Sulfate/D5W 1 GM/100 ML PIGGYBACK IV (09:52)
[2023-05-22] MEDS: 0.9 % Sodium Chloride Flush 3 ML SYRINGE IVFLUSH ×3 (09:52→20:41)
[2023-05-22] MEDS: cefTRIAXone sodium 1 GM in 0.9 % Sodium Chloride 50 ML IV (11:00)
[2023-05-22 11:10] LABS: Glucose, Whole Blood 215 mg/dL (60-115)
[2023-05-22] MEDS: Insulin Lispro 100 UNIT/ML 3 ML VIAL SUBCUT ×3 (11:28→20:41)
--- NOTE | 2023-05-22 15:53 | HO.PM.IMPN ---
Subjective Subjective Date of Service: 05/22/23 Interval History: possible Gi bleed ,alcohol withdrawal ,multiple electrolytic abnormalities Review of Systems no new episode of bleedin mental status improving seems generalised weak ,answers simple questions Abdominal soreness seems to be improved. Physical Exam Vital Signs: Vital Signs: Last Vital Signs Temp 99.0 F 05/22/23 11:39 Pulse 94 05/22/23 11:43 Resp 18 05/22/23 11:39 BP 107/69 05/22/23 11:43 Pulse Ox 97 05/22/23 11:43 O2 Del Method Room Air 05/22/23 11:39 O2 Flow Rate 1 05/21/23 10:00 FiO2 96 05/21/23 15:00 BMI result Body Mass Index 27.5 Appearance: Alert.? Oriented X3. less anxious cvs: rrr, [id number] . res: clear to auscultation ,no rhonchii or wheezing abd: no rebound or guarding ,nt, bs present. ext pulses present , no cyanosis . neuro: axo3 , nonfocal. Objective Data Active Medications Acetaminophen (Acetaminophen 325 Mg Tablet) 650 mg PO Q6H PRN PRN Reason: Pain, Mild (Pain Scale 1-3) Benzonatate (Benzonatate 100 Mg Capsule) 100 mg PO TID PRN PRN Reason: Cough Last Admin: 05/21/23 23:29 Dose: 100 mg Documented By: EMMIE Dextrose (Dextrose 50 % 25 Gm/50 Ml Syringe) 25 gm IVPUSH Q15M PRN; Protocol PRN Reason: per Hypoglycemia Standing Ord. Docusate Sodium (Docusate Sodium 100 Mg Capsule) 100 mg PO DAILY PRN PRN Reason: Constipation Glucose (Glucose Gel 15 Gm Gel..Gram.) 15 gm PO Q15M PRN; Protocol PRN Reason: per Hypoglycemia Standing Ord. Ceftriaxone Sodium 1 gm/ (Sodium Chloride) 50 mls @ 100 mls/hr IV Q24H [facility] Stop: 05/26/23 11:29 Last Infusion: 05/22/23 11:31 Dose: Infused Documented By: ERICKSON Insulin Human Lispro (Insulin Lispro 100 Unit/Ml 3 Ml Vial) 0 unit SUBCUT QIDACHS [facility]; Protocol Last Admin: 05/22/23 11:28 Dose: 4 unit Documented By: ERICKSON Melatonin (Melatonin 3 Mg Tablet) 6 mg PO BEDTIME PRN PRN Reason: Insomnia Omeprazole (Omeprazole 40 Mg Capsule.Dr) 40 mg PO BID@0630,1630 [facility] Last Admin: 05/22/23 05:43 Dose: 40 mg Documented By: EMMIE Ondansetron HCl (Ondansetron Hcl 4 Mg/2 Ml Vial) 4 mg IVPUSH Q8H PRN PRN Reason: Nausea and Vomiting Pharmacy Consult (Consult Rx Etoh Phenob Im/Po) 1 each MISCELLANE ONCE PRN; Protocol PRN Reason: Consult order Phenobarbital (Phenobarbital 30 Mg Tablet) 30 mg PO BID [facility] Stop: 05/23/23 21:01 Last Admin: 05/22/23 09:52 Dose: 30 mg Documented By: ERICKSON Phenobarbital (Phenobarbital 15 Mg Tablet) 15 mg PO DAILY [facility] Stop: 05/25/23 09:01 Sodium Chloride (0.9 % Sodium Chloride Flush 3 Ml Syringe) 3 ml IVFLUSH QSHIFT [facility] Last Admin: 05/22/23 09:52 Dose: 3 ml Documented By: ERICKSON Sucralfate (Sucralfate 1 Gm Tablet) 1 gm PO QIDACHS [facility] Stop: 05/28/23 16:29 Last Admin: 05/22/23 11:28 Dose: 1 gm Documented By: ERICKSON Labs 05/22/23 07:34 05/22/23 07:34 Labs: Laboratory Results - last 24 hr 05/21/23 05/21/23 05/21/23 16:07 19:46 19:49 MCV 90.8 MCH 32.6 MCHC 35.9 RDW 13.6 Plt Count 115 L MPV 10.5 Immature Gran % (Auto) 0.4 Neut % (Auto) 76.5 H Lymph % (Auto) 12.5 L [place] % (Auto) 8.4 Eos % (Auto) 1.7 Baso % (Auto) 0.5 Lymph # (Auto) 1.2 [place] # (Auto) 0.8 Eos # (Auto) 0.2 Baso # (Auto) 0.1 Abs Immat Gran (auto) 0.04 H Absolute Neuts (auto) 7.2 Absolute Nucleated RBC 0.040 H Nucleated RBC % (auto) 0.4 H Smear Tech's Comments VERIFIED Anion Gap 15 Estim Creat Clear Calc 146.5 Estimated GFR > 60 POC Glucose 292 H 217 H Random Glucose 221 H Calcium 7.8 L Phosphorus 2.5 L Magnesium 1.5 L Total Bilirubin 3.2 H AST 131 H ALT 37 Alkaline Phosphatase 87 Total Protein 6.3 L Albumin 3.4 L 05/22/23 05/22/23 05/22/23 07:34 07:41 11:06 MCV 92.0 MCH 33.0 MCHC 35.8 RDW 13.5 Plt Count 124 L MPV 11.1 Immature Gran % (Auto) 0.5 H Neut % (Auto) 73.7 H Lymph % (Auto) 12.7 L [place] % (Auto) 10.0 Eos % (Auto) 2.3 Baso % (Auto) 0.8 Lymph # (Auto) 1.2 [place] # (Auto) 0.9 Eos # (Auto) 0.2 Baso # (Auto) 0.1 Abs Immat Gran (auto) 0.05 H Absolute Neuts (auto) 6.8 Absolute Nucleated RBC 0.050 H Nucleated RBC % (auto) 0.5 H Smear Tech's Comments Anion Gap 14 Estim Creat Clear Calc 164.8 Estimated GFR > 60 POC Glucose 130 H 215 H Random Glucose 132 H Calcium 7.8 L Phosphorus 2.4 L Magnesium 1.4 L* Total Bilirubin 4.2 H AST 130 H ALT 39 Alkaline Phosphatase 88 Total Protein 6.3 L Albumin 3.3 L Assessment and Plan (1) Hypokalemia: Status: Acute (2) Hyponatremia: Status: Acute Assessment and Plan: 47-year-old male with a PMH significant for?insulin-dependent diabetes type 2 andHLD who presents to the ED for evaluation of syncopal episodes and vomiting blood. Pt will be admitted to the hospital for treatment and further evaluation of acute blood loss anemia and multiple electrolyte abnormalities-needed to go to ICU for further hemodynamically monitoring as well as patient was on multiple drip, electrolyte abnormalities: Acute blood loss anemia secondary to GI bleed Patient with hematemesis, melena/hematochezia x 2-3 days 05/19/23:intially Patient's H&H 5.7/15.7, platelets 127, hypotensive as low as 85/49, stool positive for occult blood started Protonix, octreotide, ondansetron, and transfuse s/p 3units PRBCs seen By GI-had EGD (05/21)- has Healing esophageal ulcer vs Valarie Weber tear,Small esophageal varix ,Small esophageal varix ,Grade A esophagitis plan-nausea vomiting seems to be improved,NSBB not recommended for low risk small varix. Will need repeat EGD in 1 year for surveillance if continues to drink. Continuing PPI 40 mg b.i.d. for 4 weeks and then switch to 20 mg daily. Carafate 1 g q.i.d.. Continue ceftriaxone for 1 week. Octreotide drip discontinued. Hyponatremia/Hypokalemia/Hypomagnesemia Improving 130-131 Nephrology following: Restrict fluid intake. Repleted magnesium and potassium. Follow BMP Syncopal episodes with head strike Patient with small superficial laceration to the back of his skull CT of head and brain:No acute intracranial abnormality including hemorrhage, mass effect, hydrocephalus, or acute territorial edematous infarction. dm: dm diet continue lantus fs with coverage sliding scale insulin Leukocytosis resolved Likely reactionary acute anemia, not due to sepsis or active infection Acute alcohol withdrawal slowly improving continue phenobarb protocol HLD Hold statin d/t transaminitis Full Code DVT Prophylaxis: Penumatic boots ongoin hospitalisation need : acute blood loss anemia due to GI bleed(possible upper GI) and multiple electrolyte abnormalities-moniter h/h ,close and frequent monitoring of labs, electrolyte replenishmen. . Time Spent With Patient Time: Total time managing care of this patient today ____ minutes. Quality Stroke Does the patient have a stroke diagnosis?: No VTE Prior VTE?: No VTE Risk Level:: Medical - moderate - high VTE Device Contraindication: N/A - Device Ordered VTE Drug Contraindication: Treatment Not Tolerated
[2023-05-22 15:59] LABS: Glucose, Whole Blood 208 mg/dL (60-115)
[2023-05-22] MEDS: Sodium,Potassium Phosphates POWD.PACK 1 PACKET PO ×2 (16:20→20:41)
[2023-05-22] MEDS: Potassium Chloride Packet 20 MEQ PACKET 40 MEQ PO (16:21)
[2023-05-22 19:41] LABS: Imm Gran Pct Auto 0.7 % (0.0-0.4); NRBC Pct Auto 0.4 /100WBC (0.0-0.2); PLT CLUMP 1; SCAN SMEAR FLAG 1
[2023-05-22 19:43] LABS: Basophils Absolute Auto 0.1 X10*3/uL (0.0-0.2); Basophils Percent Auto 0.6 % (0-2); Eosinophils Absolute Auto 0.2 X10*3/uL (0.0-0.4); Eosinophils Percent Auto 1.6 % (0-4); Hematocrit 25.2 % (42.0-52.0); Imm Gran Abs Auto 0.07 X10*3/uL (0.00-0.03); Lymphocytes Absolute Auto 1.2 X10*3/uL (1.2-4.9); Lymphocytes Percent Auto 10.9 % (20-40); Mean Corpuscular HGB Conc 35.7 g/dl (31.0-36.0); Mean Corpuscular Hemoglobin 32.8 pg (27.0-33.0); Mean Platelet Volume 11.2 fL (9.4-12.4); Monocytes Absolute Auto 1.2 X10*3/uL (0.1-1.2); Monocytes Percent Auto 10.9 % (2-11); Neutrophils Percent Auto 75.3 % (45-73); Red Blood Count 2.74 X10*6/uL (4.60-5.80); Red Cell Distribution Width 13.7 % (11.0-16.0)
[2023-05-22 19:46] LABS: Glucose, Whole Blood 200 mg/dL (60-115)
[2023-05-22 19:49] LABS: MANUAL DIFF FLAG NO; Platelet Count 147 X10*3/uL (160-400); White Blood Count 10.6 X10*3/uL (4.8-10.8)
[2023-05-22 19:56] LABS: Alanine Aminotransferase 48 U/L (0-40); Albumin Level 3.1 g/dL (3.5-5.0); Alkaline Phosphatase 129 U/L (39-117); Anion Gap 15 (12-20); Aspartate Amino Transferase 142 U/L (5-37); Blood Urea Nitrogen 6 mg/dL (9-16); Calcium 8.4 mg/dL (8.4-10.2); Carbon Dioxide 28 mmol/L (22-29); Chloride 92 mmol/L (96-108); Creatinine Clr Calc Pharmacy 135.7; Estimated Glomerular Filt Rate > 60; Glucose Random 212 mg/dL (60-115); Magnesium 1.7 mg/dL (1.6-2.6); Phosphorus 2.1 mg/dL (2.7-4.5); Potassium 3.8 mmol/L (3.3-5.1); Sodium 131 mmol/L (135-145); Total Protein 7.1 g/dL (6.5-8.0)
[2023-05-22] MEDS: Melatonin 3 MG TABLET 6 MG PO (20:40)
--- NOTE | 2023-05-22 22:07 | PM.PNNEP ---
Subjective Subjective Date of Service: 05/22/23 Interval history: possible Gi bleed ,alcohol withdrawal ,multiple electrolytic abnormalities Pt feels better Physical Exam Vital Signs: Vital Signs: Last Vital Signs Temp 98.9 F 05/22/23 19:04 Pulse 95 05/22/23 19:04 Resp 20 05/22/23 19:04 BP 110/70 05/22/23 19:04 Pulse Ox 99 05/22/23 19:04 O2 Del Method Room Air 05/22/23 19:04 O2 Flow Rate 1 05/21/23 10:00 FiO2 96 05/21/23 15:00 BMI result Body Mass Index 27.5 Appearance: Alert.? Oriented X3. less anxious cvs: rrr, [id number] . res: clear to auscultation ,no rhonchii or wheezing abd: no rebound or guarding ,nt, bs present. ext pulses present , no cyanosis . neuro: axo3 , nonfocal. Objective Data Labs 05/22/23 19:13 05/22/23 19:13 Labs: Laboratory Results - last 24 hr 05/19/23 05/22/23 05/22/23 12:53 07:34 07:41 WBC 9.2 RBC 2.61 L Hgb 8.6 L Hct 24.0 L MCV 92.0 MCH 33.0 MCHC 35.8 RDW 13.5 Plt Count 124 L MPV 11.1 Immature Gran % (Auto) 0.5 H Neut % (Auto) 73.7 H Lymph % (Auto) 12.7 L [place] % (Auto) 10.0 Eos % (Auto) 2.3 Baso % (Auto) 0.8 Lymph # (Auto) 1.2 [place] # (Auto) 0.9 Eos # (Auto) 0.2 Baso # (Auto) 0.1 Abs Immat Gran (auto) 0.05 H Absolute Neuts (auto) 6.8 Absolute Nucleated RBC 0.050 H Nucleated RBC % (auto) 0.5 H Smear Path Review Sodium 130 L Potassium 3.1 L Chloride 91 L Carbon Dioxide 28 Anion Gap 14 BUN 5 L Creatinine 0.56 Estim Creat Clear Calc 164.8 Estimated GFR > 60 POC Glucose 130 H Random Glucose 132 H Calcium 7.8 L Phosphorus 2.4 L Magnesium 1.4 L* Total Bilirubin 4.2 H AST 130 H ALT 39 Alkaline Phosphatase 88 Total Protein 6.3 L Albumin 3.3 L Blood Type Antibody Screen 05/22/23 05/22/23 05/22/23 11:06 15:56 19:13 WBC 10.6 RBC 2.74 L Hgb 9.0 L Hct 25.2 L MCV 92.0 MCH 32.8 MCHC 35.7 RDW 13.7 Plt Count 147 L MPV 11.2 Immature Gran % (Auto) 0.7 H Neut % (Auto) 75.3 H Lymph % (Auto) 10.9 L [place] % (Auto) 10.9 Eos % (Auto) 1.6 Baso % (Auto) 0.6 Lymph # (Auto) 1.2 [place] # (Auto) 1.2 Eos # (Auto) 0.2 Baso # (Auto) 0.1 Abs Immat Gran (auto) 0.07 H Absolute Neuts (auto) 8.0 Absolute Nucleated RBC 0.040 H Nucleated RBC % (auto) 0.4 H Smear Path Review Sodium 131 L Potassium 3.8 D Chloride 92 L Carbon Dioxide 28 Anion Gap 15 BUN 6 L Creatinine 0.68 Estim Creat Clear Calc 135.7 Estimated GFR > 60 POC Glucose 215 H 208 H Random Glucose 212 H Calcium 8.4 D Phosphorus 2.1 L Magnesium 1.7 Total Bilirubin 5.0 H AST 142 H ALT 48 H Alkaline Phosphatase 129 H Total Protein 7.1 Albumin 3.1 L Blood Type O Positive Antibody Screen NEGATIVE 05/22/23 19:43 WBC RBC Hgb Hct MCV MCH MCHC RDW Plt Count MPV Immature Gran % (Auto) Neut % (Auto) Lymph % (Auto) [place] % (Auto) Eos % (Auto) Baso % (Auto) Lymph # (Auto) [place] # (Auto) Eos # (Auto) Baso # (Auto) Abs Immat Gran (auto) Absolute Neuts (auto) Absolute Nucleated RBC Nucleated RBC % (auto) Smear Path Review Sodium Potassium Chloride Carbon Dioxide Anion Gap BUN Creatinine Estim Creat Clear Calc Estimated GFR POC Glucose 200 H Random Glucose Calcium Phosphorus Magnesium Total Bilirubin AST ALT Alkaline Phosphatase Total Protein Albumin Blood Type Antibody Screen Procedures Date of Service Date of Service: 05/22/23 Assessment & Plan Assessment and plan (1) Hypokalemia: Status: Acute (2) Hyponatremia: Status: Acute Assessment and Plan: hypotonic hyponatremia Jess < 20 Uosm > Sosm not c/w SIADH cv/w with pre renal state low K in the setting of GI losses and low Mg REC Acceptable correction (6 meq/24 hours) restrict free water intake replace Mg and K follow kidney function and electrolytes Time Spent With Patient Time: Total time managing care of this patient today ____ minutes. Progress Note: Quality Stroke Does the patient have a stroke diagnosis?: No
[2023-05-23 03:29] VITALS: BP 106/67; PULSE 90; RESP 19; TEMP 36.7
[2023-05-23] MEDS: Omeprazole 40 MG CAPSULE.DR PO ×2 (05:34→17:34)
[2023-05-23] MEDS: Acetaminophen 325 MG TABLET 650 MG PO (05:34)
--- NOTE | 2023-05-23 07:26 | HO.POSTANES ---
Post Anesthesia Evaluation Post Anesthesia Evaluation Date of Service: 05/23/23 Vital Signs: Vital Signs Temp Pulse Resp BP O2 Del Method FiO2 05/23/23 03:29 98.0 F 90 19 106/67 Room Air 97 05/22/23 23:29 98.0 F 108 H 19 98/64 Room Air 96 Anesthesia: Monitored Mental Status: Awake Pain Control: Satisfactory Nausea/Vomiting: None Hydration: Adequate Anesthesia-Related Issues: No Anes. Related Issues
[2023-05-23 07:38] VITALS: BP 106/63; PULSE 82; RESP 18; TEMP 36.5; O2SAT 96
[2023-05-23 07:43] LABS: Glucose, Whole Blood 220 mg/dL (60-115)
[2023-05-23] MEDS: Sucralfate 1 GM TABLET PO ×4 (08:54→20:08)
[2023-05-23] MEDS: Sodium,Potassium Phosphates POWD.PACK 1 PACKET PO ×4 (08:55→20:08)
[2023-05-23] MEDS: PHENobarbitaL 30 MG TABLET PO ×2 (08:55→20:08)
[2023-05-23] MEDS: Insulin Lispro 100 UNIT/ML 3 ML VIAL SUBCUT ×4 (08:55→20:08)
[2023-05-23] MEDS: 0.9 % Sodium Chloride Flush 3 ML SYRINGE IVFLUSH ×2 (08:58→20:09)
[2023-05-23 10:12] LABS: Anion Gap 14 (12-20); Blood Urea Nitrogen 6 mg/dL (9-16); Calcium 7.9 mg/dL (8.4-10.2); Carbon Dioxide 28 mmol/L (22-29); Chloride 91 mmol/L (96-108); Creatinine Clr Calc Pharmacy 156.4; Estimated Glomerular Filt Rate > 60; Glucose Random 247 mg/dL (60-115); Potassium 3.5 mmol/L (3.3-5.1); Sodium 129 mmol/L (135-145)
[2023-05-23 11:31] VITALS: BP 102/65; PULSE 95; RESP 20; TEMP 36.2; O2SAT 99
[2023-05-23 11:32] LABS: Glucose, Whole Blood 183 mg/dL (60-115)
[2023-05-23] MEDS: cefTRIAXone sodium 1 GM in 0.9 % Sodium Chloride 50 ML IV (12:21)
--- NOTE | 2023-05-23 13:02 | P.PNIM_ITS ---
Subjective Subjective Date of Service: 05/23/23 Interval History: possible Gi bleed ,alcohol withdrawal ,multiple electrolytic abnormalities Review of Systems seems weak Abdominal pain seems to be improved, no new episode of bleeding. Denies any fever or chills or cough or phlegm. Physical Exam 2 Vital Signs: Vital Signs: Last Vital Signs Temp 97.2 F 05/23/23 11:31 Pulse 95 05/23/23 11:31 Resp 20 05/23/23 11:31 BP 102/65 05/23/23 11:31 Pulse Ox 99 05/23/23 11:31 O2 Del Method Room Air 05/23/23 11:31 O2 Flow Rate 1 05/21/23 10:00 FiO2 97 05/23/23 03:29 BMI result Body Mass Index 27.5 Appearance: Alert.? Oriented X3. less anxious cvs: rrr, [id number] . res: clear to auscultation ,no rhonchii or wheezing abd: no rebound or guarding ,nt, bs present. ext pulses present , no cyanosis . neuro: axo3 , nonfocal. Objective Data Active Medications Acetaminophen (Acetaminophen 325 Mg Tablet) 650 mg PO Q6H PRN PRN Reason: Pain, Mild (Pain Scale 1-3) Last Admin: 05/23/23 05:34 Dose: 650 mg Documented By: RIKI Benzonatate (Benzonatate 100 Mg Capsule) 100 mg PO TID PRN PRN Reason: Cough Last Admin: 05/21/23 23:29 Dose: 100 mg Documented By: EMMIE Dextrose (Dextrose 50 % 25 Gm/50 Ml Syringe) 25 gm IVPUSH Q15M PRN; Protocol PRN Reason: per Hypoglycemia Standing Ord. Docusate Sodium (Docusate Sodium 100 Mg Capsule) 100 mg PO DAILY PRN PRN Reason: Constipation Glucose (Glucose Gel 15 Gm Gel..Gram.) 15 gm PO Q15M PRN; Protocol PRN Reason: per Hypoglycemia Standing Ord. Ceftriaxone Sodium 1 gm/ (Sodium Chloride) 50 mls @ 100 mls/hr IV Q24H [facility] Stop: 05/26/23 11:29 Last Admin: 05/23/23 12:21 Dose: 100 mls/hr Documented By: JUAN R Insulin Human Lispro (Insulin Lispro 100 Unit/Ml 3 Ml Vial) 0 unit SUBCUT QIDACHS [facility]; Protocol Last Admin: 05/23/23 12:20 Dose: 2 unit Documented By: JUAN R Melatonin (Melatonin 3 Mg Tablet) 6 mg PO BEDTIME PRN PRN Reason: Insomnia Last Admin: 05/22/23 20:40 Dose: 6 mg Documented By: RIKI Omeprazole (Omeprazole 40 Mg Capsule.Dr) 40 mg PO BID@0630,1630 [facility] Last Admin: 05/23/23 05:34 Dose: 40 mg Documented By: RIKI Ondansetron HCl (Ondansetron Hcl 4 Mg/2 Ml Vial) 4 mg IVPUSH Q8H PRN PRN Reason: Nausea and Vomiting Pharmacy Consult (Consult Rx Etoh Phenob Im/Po) 1 each MISCELLANE ONCE PRN; Protocol PRN Reason: Consult order Phenobarbital (Phenobarbital 30 Mg Tablet) 30 mg PO BID [facility] Stop: 05/23/23 21:01 Last Admin: 05/23/23 08:55 Dose: 30 mg Documented By: JUAN R Phenobarbital (Phenobarbital 15 Mg Tablet) 15 mg PO DAILY [facility] Stop: 05/25/23 09:01 Potassium Phos/Sodium Phos (Sodium,Potassium Phosphates Powd.Pack) 1 packet PO QID [facility] Last Admin: 05/23/23 12:19 Dose: 1 packet Documented By: JUAN R Sodium Chloride (0.9 % Sodium Chloride Flush 3 Ml Syringe) 3 ml IVFLUSH QSHIFT [facility] Last Admin: 05/23/23 08:58 Dose: 3 ml Documented By: JUAN R Sucralfate (Sucralfate 1 Gm Tablet) 1 gm PO QIDACHS [facility] Stop: 05/28/23 16:29 Last Admin: 05/23/23 12:19 Dose: 1 gm Documented By: JUAN R Labs 05/22/23 19:13 05/23/23 09:26 Labs: Laboratory Results - last 24 hr 05/19/23 05/22/23 05/22/23 12:53 15:56 19:13 MCV 92.0 MCH 32.8 MCHC 35.7 RDW 13.7 Plt Count 147 L MPV 11.2 Immature Gran % (Auto) 0.7 H Neut % (Auto) 75.3 H Lymph % (Auto) 10.9 L [place] % (Auto) 10.9 Eos % (Auto) 1.6 Baso % (Auto) 0.6 Lymph # (Auto) 1.2 [place] # (Auto) 1.2 Eos # (Auto) 0.2 Baso # (Auto) 0.1 Abs Immat Gran (auto) 0.07 H Absolute Neuts (auto) 8.0 Absolute Nucleated RBC 0.040 H Nucleated RBC % (auto) 0.4 H Smear Path Review SEE NOTE Hold Purple Top Anion Gap 15 Estim Creat Clear Calc 135.7 Estimated GFR > 60 POC Glucose 208 H Random Glucose 212 H Calcium 8.4 D Phosphorus 2.1 L Magnesium 1.7 Total Bilirubin 5.0 H AST 142 H ALT 48 H Alkaline Phosphatase 129 H Total Protein 7.1 Albumin 3.1 L Blood Type O Positive Antibody Screen NEGATIVE 05/22/23 05/23/23 05/23/23 19:43 07:37 09:26 MCV MCH MCHC RDW Plt Count MPV Immature Gran % (Auto) Neut % (Auto) Lymph % (Auto) [place] % (Auto) Eos % (Auto) Baso % (Auto) Lymph # (Auto) [place] # (Auto) Eos # (Auto) Baso # (Auto) Abs Immat Gran (auto) Absolute Neuts (auto) Absolute Nucleated RBC Nucleated RBC % (auto) Smear Path Review Hold Purple Top SEE NOTE Anion Gap 14 Estim Creat Clear Calc 156.4 Estimated GFR > 60 POC Glucose 200 H 220 H Random Glucose 247 H Calcium 7.9 L Phosphorus Magnesium Total Bilirubin AST ALT Alkaline Phosphatase Total Protein Albumin Blood Type Antibody Screen 05/23/23 11:29 MCV MCH MCHC RDW Plt Count MPV Immature Gran % (Auto) Neut % (Auto) Lymph % (Auto) [place] % (Auto) Eos % (Auto) Baso % (Auto) Lymph # (Auto) [place] # (Auto) Eos # (Auto) Baso # (Auto) Abs Immat Gran (auto) Absolute Neuts (auto) Absolute Nucleated RBC Nucleated RBC % (auto) Smear Path Review Hold Purple Top Anion Gap Estim Creat Clear Calc Estimated GFR POC Glucose 183 H Random Glucose Calcium Phosphorus Magnesium Total Bilirubin AST ALT Alkaline Phosphatase Total Protein Albumin Blood Type Antibody Screen Assessment and Plan (1) Hypokalemia: Status: Acute (2) Hyponatremia: Status: Acute Assessment and Plan: 47-year-old male with a PMH significant for?insulin-dependent diabetes type 2 andHLD who presents to the ED for evaluation of syncopal episodes and vomiting blood. Pt will be admitted to the hospital for treatment and further evaluation of acute blood loss anemia and multiple electrolyte abnormalities-needed to go to ICU for further hemodynamically monitoring as well as patient was on multiple drip, electrolyte abnormalities: Acute blood loss anemia secondary to GI bleed Patient with hematemesis, melena/hematochezia x 2-3 days 05/19/23:intially Patient's H&H 5.7/15.7, platelets 127, hypotensive as low as 85/49, stool positive for occult blood started Protonix, octreotide, ondansetron, and transfuse s/p 3units PRBCs seen By GI-had EGD (05/21)- has Healing esophageal ulcer vs Valarie Weber tear,Small esophageal varix ,Small esophageal varix ,Grade A esophagitis plan-nausea vomiting seems to be improved,NSBB not recommended for low risk small varix. Will need repeat EGD in 1 year for surveillance if continues to drink. Continuing PPI 40 mg b.i.d. for 4 weeks and then switch to 20 mg daily. Carafate 1 g q.i.d.. Continue ceftriaxone for 1 week. Octreotide drip discontinued. Hyponatremia/Hypokalemia/Hypomagnesemia trending down to 129 Nephrology following: Restrict fluid intake. Repleted magnesium and potassium. Follow BMP Syncopal episodes with head strike Patient with small superficial laceration to the back of his skull CT of head and brain:No acute intracranial abnormality including hemorrhage, mass effect, hydrocephalus, or acute territorial edematous infarction. dm: dm diet continue lantus fs with coverage sliding scale insulin Leukocytosis resolved Likely reactionary acute anemia, not due to sepsis or active infection Acute alcohol withdrawal slowly improving continue phenobarb protocol HLD Hold statin d/t transaminitis Full Code DVT Prophylaxis: Penumatic boots ongoin hospitalisation need : acute blood loss anemia due to GI bleed(possible upper GI) and multiple electrolyte abnormalities-moniter h/h ,close and frequent monitoring of labs, electrolyte replenishmen. . Time Spent With Patient Time: Total time managing care of this patient today ____ minutes. Quality Stroke Does the patient have a stroke diagnosis?: No VTE Prior VTE?: No VTE Risk Level:: Medical - moderate - high VTE Device Contraindication: N/A - Device Ordered VTE Drug Contraindication: Treatment Not Tolerated
[2023-05-23 15:08] VITALS: BP 108/64; PULSE 96; RESP 20; TEMP 36.8; O2SAT 98
[2023-05-23 16:23] LABS: Glucose, Whole Blood 200 mg/dL (60-115)
[2023-05-23 19:11] VITALS: BP 117/70; PULSE 101; RESP 20; TEMP 36.6; O2SAT 98
[2023-05-23 19:48] LABS: Glucose, Whole Blood 233 mg/dL (60-115)
--- NOTE | 2023-05-23 21:33 | P.PNNP_ITS ---
Subjective Subjective Date of Service: 05/23/23 Interval history: possible Gi bleed ,alcohol withdrawal ,multiple electrolytic abnormalities Physical Exam 2 Vital Signs: Vital Signs: Last Vital Signs Temp 97.9 F 05/23/23 19:11 Pulse 101 H 05/23/23 19:11 Resp 20 05/23/23 19:11 BP 117/70 05/23/23 19:11 Pulse Ox 98 05/23/23 19:11 O2 Del Method Room Air 05/23/23 19:11 O2 Flow Rate 1 05/21/23 10:00 FiO2 97 05/23/23 03:29 BMI result Body Mass Index 27.5 Appearance: Alert.? Oriented X3. less anxious cvs: rrr, [id number] . res: clear to auscultation ,no rhonchii or wheezing abd: no rebound or guarding ,nt, bs present. ext pulses present , no cyanosis . neuro: axo3 , nonfocal. Objective Data Labs 05/22/23 19:13 05/23/23 09:26 Labs: Laboratory Results - last 24 hr 05/19/23 05/23/23 05/23/23 12:53 07:37 09:26 Smear Path Review SEE NOTE Hold Purple Top SEE NOTE Sodium 129 L Potassium 3.5 Chloride 91 L Carbon Dioxide 28 Anion Gap 14 BUN 6 L Creatinine 0.59 Estim Creat Clear Calc 156.4 Estimated GFR > 60 POC Glucose 220 H Random Glucose 247 H Calcium 7.9 L 05/23/23 05/23/23 05/23/23 11:29 16:21 19:42 Smear Path Review Hold Purple Top Sodium Potassium Chloride Carbon Dioxide Anion Gap BUN Creatinine Estim Creat Clear Calc Estimated GFR POC Glucose 183 H 200 H 233 H Random Glucose Calcium Procedures Date of Service Date of Service: 05/23/23 Assessment & Plan Assessment and plan (1) Hypokalemia: Status: Acute (2) Hyponatremia: Status: Acute Assessment and Plan: hypotonic hyponatremia Jess < 20 Uosm > Sosm not c/w SIADH cv/w with pre renal state low K in the setting of GI losses and low Mg REC NACl tabs 1 g TID x 4 doses orderd restrict free water intake replace Mg and K as needed follow kidney function and electrolytes will sign off Reconsult PRN Time Spent With Patient Time: Total time managing care of this patient today ____ minutes. Progress Note: Quality Stroke Does the patient have a stroke diagnosis?: No
[2023-05-23 23:31] VITALS: BP 111/67; PULSE 96; RESP 18; TEMP 37.2; O2SAT 97
[2023-05-24] VITALS (7 sets, daily range): BP systolic 103–122; BP diastolic 54–69; PULSE 89–97; RESP 16–18; TEMP 36.4–37.2; O2SAT 95–99; BMI 27.0
[2023-05-24] MEDS: Sodium Chloride Tab 1 GM TABLET PO ×4 (02:08→20:51)
[2023-05-24] MEDS: Omeprazole 40 MG CAPSULE.DR PO ×2 (05:35→16:06)
[2023-05-24 07:07] LABS: Hematocrit 24.2 % (42.0-52.0); Hemoglobin 8.5 g/dl (14.0-18.0)
[2023-05-24 07:20] LABS: Anion Gap 15 (12-20); Blood Urea Nitrogen 6 mg/dL (9-16); Calcium 7.7 mg/dL (8.4-10.2); Carbon Dioxide 26 mmol/L (22-29); Chloride 91 mmol/L (96-108); Creatinine Clr Calc Pharmacy 164.8; Estimated Glomerular Filt Rate > 60; Glucose Random 258 mg/dL (60-115); Potassium 3.6 mmol/L (3.3-5.1); Sodium 128 mmol/L (135-145)
[2023-05-24 07:21] LABS: Glucose, Whole Blood 279 mg/dL (60-115)
[2023-05-24] MEDS: Sucralfate 1 GM TABLET PO ×4 (08:08→20:51)
[2023-05-24] MEDS: Sodium,Potassium Phosphates POWD.PACK 1 PACKET PO ×4 (08:08→20:51)
[2023-05-24] MEDS: PHENobarbitaL 15 MG TABLET PO (08:08)
[2023-05-24] MEDS: Insulin Lispro 100 UNIT/ML 3 ML VIAL SUBCUT ×4 (08:08→21:11)
[2023-05-24] MEDS: 0.9 % Sodium Chloride Flush 3 ML SYRINGE IVFLUSH ×2 (08:13→20:52)
[2023-05-24 11:30] LABS: Glucose, Whole Blood 300 mg/dL (60-115)
[2023-05-24] MEDS: cefTRIAXone sodium 1 GM in 0.9 % Sodium Chloride 50 ML IV (12:03)
--- NOTE | 2023-05-24 13:54 | P.PNGI_ITS ---
Subjective Subjective Date of Service: 05/24/23 Interval History: Seen at bedside. Reports no abd pain, N,V. Has not had any recurrence of melena or vomiting. Critical Care Time (minutes): 0 Physical Exam 2 Vital Signs: Vital Signs: Last Vital Signs Temp 97.5 F 05/24/23 11:53 Pulse 94 05/24/23 11:53 Resp 18 05/24/23 11:53 BP 114/68 05/24/23 11:53 Pulse Ox 95 05/24/23 11:53 O2 Del Method Room Air 05/24/23 11:53 O2 Flow Rate 1 05/21/23 10:00 FiO2 97 05/23/23 03:29 BMI result Body Mass Index 27.0 Gen appear: NAD Abd: soft, nontender, nondistended Objective Data Labs 05/24/23 06:41 05/24/23 06:41 Labs: Laboratory Results - last 24 hr 05/23/23 05/23/23 05/24/23 16:21 19:42 06:41 Hgb 8.5 L Hct 24.2 L Sodium 128 L Potassium 3.6 Chloride 91 L Carbon Dioxide 26 Anion Gap 15 BUN 6 L Creatinine 0.56 Estim Creat Clear Calc 164.8 Estimated GFR > 60 POC Glucose 200 H 233 H Random Glucose 258 H Calcium 7.7 L 05/24/23 05/24/23 07:16 11:26 Hgb Hct Sodium Potassium Chloride Carbon Dioxide Anion Gap BUN Creatinine Estim Creat Clear Calc Estimated GFR POC Glucose 279 H 300 H Random Glucose Calcium Procedures Date of Service Date of Service: 05/24/23 Progress Note: A&P Assessment and plan (1) GI bleed: Status: Acute (2) Anemia: Status: Acute Plan Remains admitted due to electrolyte abnormalities including hyponatremia. GI following for acute anemia due to UGIB 2/2 MWT although did have signs of portal HTN on endoscopy as well but no stigmata of bleeding from small varix. CBC stable. Continues on Ceftriaxone 1g IV daily. Day 5 today. This can be switched to PO cipro if pt has planned discharge prior to completion. He will be booked for follow up within 4 weeks for etOH related chronic liver disease in office. Please call back with any questions or concerns. Time Spent With Patient Time: Total time managing care of this patient today ____ minutes. Quality Stroke Does the patient have a stroke diagnosis?: No VTE Prior VTE?: No VTE Risk Level:: Medical - moderate - high VTE Device Contraindication: N/A - Device Ordered VTE Drug Contraindication: Treatment Not Tolerated
--- NOTE | 2023-05-24 14:27 | MHC.CM.PN ---
EMR REVIEWED, PER MULTIDISCIPLINARY ROUNDS PT NOT QUITE READY FOR DC, ANTIC PT WILL BE CLEARED TOMORROW 05/25, CM WILL CONT TO FOLLOW DC NEEDS.
--- NOTE | 2023-05-24 15:40 | HO.PM.IMPN ---
Subjective Subjective Date of Service: 05/24/23 Interval History: This history was taken in Slovak from the patient. No abd pain No further bleeding no headache Review of Systems Review of Systems: Yes all other systems are reviewed and are negative Physical Exam Vital Signs: Vital Signs: Last Vital Signs Temp 97.5 F 05/24/23 11:53 Pulse 94 05/24/23 11:53 Resp 18 05/24/23 11:53 BP 114/68 05/24/23 11:53 Pulse Ox 95 05/24/23 11:53 O2 Del Method Room Air 05/24/23 11:53 O2 Flow Rate 1 05/21/23 10:00 FiO2 97 05/23/23 03:29 BMI result Body Mass Index 27.0 Gen: in no acute distress HEENT: sclera anicteric, moist mucus membranes Neck: supple Lungs: clear to auscultation bilaterally Heart: regular rate and rhythm, no murmurs Abd: soft, non-tender, non-distended Ext: no edema Skin: warm/well-perfused Neuro: alert and oriented x3, no focal findings Psych: appropriate affect Objective Data Active Medications Acetaminophen (Acetaminophen 325 Mg Tablet) 650 mg PO Q6H PRN PRN Reason: Pain, Mild (Pain Scale 1-3) Last Admin: 05/23/23 05:34 Dose: 650 mg Documented By: RIKI Benzonatate (Benzonatate 100 Mg Capsule) 100 mg PO TID PRN PRN Reason: Cough Last Admin: 05/21/23 23:29 Dose: 100 mg Documented By: EMMIE Dextrose (Dextrose 50 % 25 Gm/50 Ml Syringe) 25 gm IVPUSH Q15M PRN; Protocol PRN Reason: per Hypoglycemia Standing Ord. Docusate Sodium (Docusate Sodium 100 Mg Capsule) 100 mg PO DAILY PRN PRN Reason: Constipation Glucose (Glucose Gel 15 Gm Gel..Gram.) 15 gm PO Q15M PRN; Protocol PRN Reason: per Hypoglycemia Standing Ord. Ceftriaxone Sodium 1 gm/ (Sodium Chloride) 50 mls @ 100 mls/hr IV Q24H [facility] Stop: 05/26/23 11:29 Last Infusion: 05/24/23 13:06 Dose: Infused Documented By: JUAN R Insulin Human Lispro (Insulin Lispro 100 Unit/Ml 3 Ml Vial) [facility]; Protocol Last Admin: 05/24/23 12:02 Dose: 6 unit Documented By: JUAN R Melatonin (Melatonin 3 Mg Tablet) 6 mg PO BEDTIME PRN PRN Reason: Insomnia Last Admin: 05/22/23 20:40 Dose: 6 mg Documented By: RIKI Omeprazole (Omeprazole 40 Mg Capsule.Dr) 40 mg PO BID@0630,1630 [facility] Last Admin: 05/24/23 05:35 Dose: 40 mg Documented By: LIONEL Ondansetron HCl (Ondansetron Hcl 4 Mg/2 Ml Vial) 4 mg IVPUSH Q8H PRN PRN Reason: Nausea and Vomiting Pharmacy Consult (Consult Rx Etoh Phenob Im/Po) 1 each MISCELLANE ONCE PRN; Protocol PRN Reason: Consult order Phenobarbital (Phenobarbital 15 Mg Tablet) 15 mg PO DAILY [facility] Stop: 05/25/23 09:01 Last Admin: 05/24/23 08:08 Dose: 15 mg Documented By: JUAN R Potassium Phos/Sodium Phos (Sodium,Potassium Phosphates Powd.Pack) 1 packet PO QID [facility] Last Admin: 05/24/23 12:02 Dose: 1 packet Documented By: JUAN R Sodium Chloride (0.9 % Sodium Chloride Flush 3 Ml Syringe) 3 ml IVFLUSH [facility] Last Admin: 05/24/23 08:13 Dose: 3 ml Documented By: JUAN R Sodium Chloride (Sodium Chloride Tab 1 Gm Tablet) 1 gm PO TID [facility] Last Admin: 05/24/23 08:08 Dose: 1 gm Documented By: JUAN R Sucralfate (Sucralfate 1 Gm Tablet) 1 gm PO QIDAS [facility] Stop: 05/28/23 16:29 Last Admin: 05/24/23 12:02 Dose: 1 gm Documented By: JUAN R Labs 05/24/23 06:41 05/24/23 06:41 Labs: Laboratory Results - last 24 hr 05/23/23 05/23/23 05/24/23 16:21 19:42 06:41 Anion Gap 15 Estim Creat Clear Calc 164.8 Estimated GFR > 60 POC Glucose 200 H 233 H Random Glucose 258 H Calcium 7.7 L 05/24/23 05/24/23 07:16 11:26 Anion Gap Estim Creat Clear Calc Estimated GFR POC Glucose 279 H 300 H Random Glucose Calcium Assessment and Plan (1) Hypokalemia: Status: Acute (2) Hyponatremia: Status: Acute Assessment and Plan: d6 47yo M with DM2, HLD admitted to hospital for syncope due to acute blood loss anemia due to GI bleed, briefly in ICU 05/20-05/21 for hypotension acute blood loss anemia due to GI bleed - transfused 3u pRBCs on admission with appropriate response - EGD by Dr Charles 05/21: Healing esophageal ulcer vs Valarie Weber tear Small esophageal varix Grade A esophagitis Portal hypertensive gastropathy Normal duodenum - UGIB likely from Valarie-Weber tear from retching + vomiting - no NSBB for low-risk small varix; needs repeat EGD in 1 yr for surveillance if continues to drink - pantoprazole 40 mg bid x 4 wk then 20 mg once daily - sucralfate 1g qid x7d - ceftriaxone 7d for infection ppx [can be cipro if discharged before that] - octreotide discontinued AUD with withdrawal - phenobarbital taper - declined recovery support hypoNa - restrict fluid, recheck BMP in AM, Nephro following and started NaCl tabs hypoK hypoMg - repleted, recheck in AM DM2 with hyperglycemia - continue Lantus, increase HUmalog leukocytosis - reactive, no signs of infection VTE ppx - SCDs dispo - home with VNA In my clinical judgment, the patient requires continued inpatient hospitalization for the following reasons: electrlyte abnormalities Time Spent With Patient Time: Total time managing care of this patient today __45__ minutes. Quality Stroke Does the patient have a stroke diagnosis?: No VTE Prior VTE?: No VTE Risk Level:: Medical - moderate - high VTE Device Contraindication: N/A - Device Ordered VTE Drug Contraindication: Treatment Not Tolerated
[2023-05-24 16:36] LABS: Glucose, Whole Blood 283 mg/dL (60-115)
[2023-05-24 21:11] LABS: Glucose, Whole Blood 157 mg/dL (60-115)
[2023-05-25 03:38] VITALS: BP 101/52; PULSE 96; RESP 17; TEMP 37.1; O2SAT 97
[2023-05-25] MEDS: Omeprazole 40 MG CAPSULE.DR PO ×2 (05:16→16:50)
[2023-05-25 05:53] VITALS: BMI 27.3
[2023-05-25 07:21] VITALS: BP 104/65; PULSE 93; RESP 16; TEMP 36.7; O2SAT 97
[2023-05-25 07:22] LABS: Hematocrit 26.3 % (42.0-52.0); Hemoglobin 8.8 g/dl (14.0-18.0); Mean Corpuscular HGB Conc 33.5 g/dl (31.0-36.0); Mean Corpuscular Hemoglobin 31.5 pg (27.0-33.0); Mean Corpuscular Volume 94.3 fL (80.0-98.0); Mean Platelet Volume 11.1 fL (9.4-12.4); Platelet Count 203 X10*3/uL (160-400); Red Blood Count 2.79 X10*6/uL (4.60-5.80); Red Cell Distribution Width 14.9 % (11.0-16.0); White Blood Count 9.1 X10*3/uL (4.8-10.8)
[2023-05-25 07:38] LABS: Glucose, Whole Blood 246 mg/dL (60-115)
[2023-05-25 07:54] LABS: Anion Gap 14 (12-20); Blood Urea Nitrogen 5 mg/dL (9-16); Carbon Dioxide 28 mmol/L (22-29); Chloride 93 mmol/L (96-108); Creatinine Clr Calc Pharmacy 144.2; Estimated Glomerular Filt Rate > 60; Glucose Random 211 mg/dL (60-115); Potassium 4.2 mmol/L (3.3-5.1); Sodium 131 mmol/L (135-145)
[2023-05-25 07:56] LABS: Magnesium 1.4 mg/dL (1.6-2.6)
[2023-05-25] MEDS: Sucralfate 1 GM TABLET PO ×4 (08:23→20:45)
[2023-05-25] MEDS: Sodium,Potassium Phosphates POWD.PACK 1 PACKET PO ×4 (08:23→20:45)
[2023-05-25] MEDS: Magnesium Sulfate/H2O 2 GM/50 ML PIGGYBACK IV (08:23)
[2023-05-25] MEDS: PHENobarbitaL 15 MG TABLET PO (08:23)
[2023-05-25] MEDS: Insulin Lispro 100 UNIT/ML 3 ML VIAL SUBCUT ×4 (08:24→20:45)
[2023-05-25] MEDS: 0.9 % Sodium Chloride Flush 3 ML SYRINGE IVFLUSH ×2 (08:26→16:54)
[2023-05-25 09:49] VITALS: BP 104/65; PULSE 93; O2SAT 97
--- NOTE | 2023-05-25 10:32 | MHC.CM.PN ---
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
[2023-05-25 11:15] VITALS: BP 123/71; PULSE 96; RESP 16; TEMP 36.7; O2SAT 96
[2023-05-25 11:29] LABS: Glucose, Whole Blood 292 mg/dL (60-115)
[2023-05-25] MEDS: cefTRIAXone sodium 1 GM in 0.9 % Sodium Chloride 50 ML IV (11:31)
--- NOTE | 2023-05-25 14:21 | HO.PM.IMPN ---
Subjective Subjective Date of Service: 05/25/23 Interval History: This history was taken in Swedish from the patient. No abd pain, hematochezia, or melena Mg 1.4 Review of Systems Review of Systems: Yes all other systems are reviewed and are negative Physical Exam Vital Signs: Vital Signs: Last Vital Signs Temp 98.0 F 05/25/23 11:15 Pulse 96 05/25/23 11:15 Resp 16 05/25/23 11:15 BP 123/71 05/25/23 11:15 Pulse Ox 96 05/25/23 11:15 O2 Del Method Room Air 05/25/23 11:15 O2 Flow Rate 1 05/21/23 10:00 FiO2 97 05/23/23 03:29 BMI result Body Mass Index 27.3 Gen: in no acute distress HEENT: sclera anicteric, moist mucus membranes Neck: supple Lungs: clear to auscultation bilaterally Heart: regular rate and rhythm, no murmurs Abd: soft, non-tender, non-distended Ext: no edema Skin: warm/well-perfused Neuro: alert and oriented x3, no focal findings Psych: appropriate affect Objective Data Active Medications Acetaminophen (Acetaminophen 325 Mg Tablet) 650 mg PO Q6H PRN PRN Reason: Pain, Mild (Pain Scale 1-3) Last Admin: 05/23/23 05:34 Dose: 650 mg Documented By: RIKI Benzonatate (Benzonatate 100 Mg Capsule) 100 mg PO TID PRN PRN Reason: Cough Last Admin: 05/21/23 23:29 Dose: 100 mg Documented By: EMMIE Dextrose (Dextrose 50 % 25 Gm/50 Ml Syringe) 25 gm IVPUSH Q15M PRN; Protocol PRN Reason: per Hypoglycemia Standing Ord. Docusate Sodium (Docusate Sodium 100 Mg Capsule) 100 mg PO DAILY PRN PRN Reason: Constipation Glucose (Glucose Gel 15 Gm Gel..Gram.) 15 gm PO Q15M PRN; Protocol PRN Reason: per Hypoglycemia Standing Ord. Ceftriaxone Sodium 1 gm/ (Sodium Chloride) 50 mls @ 100 mls/hr IV Q24H [facility] Stop: 05/26/23 11:29 Last Infusion: 05/25/23 12:22 Dose: Infused Documented By: FRANTZ Insulin Human Lispro (Insulin Lispro 100 Unit/Ml 3 Ml Vial) 0 unit SUBCUT QIDACHS [facility]; Protocol Last Admin: 05/25/23 11:31 Dose: 9 unit Documented By: FRANTZ Melatonin (Melatonin 3 Mg Tablet) 6 mg PO BEDTIME PRN PRN Reason: Insomnia Last Admin: 05/22/23 20:40 Dose: 6 mg Documented By: RIKI Omeprazole (Omeprazole 40 Mg Capsule.Dr) 40 mg PO BID@0630,1630 [facility] Last Admin: 05/25/23 05:16 Dose: 40 mg Documented By: ELIESER Ondansetron HCl (Ondansetron Hcl 4 Mg/2 Ml Vial) 4 mg IVPUSH Q8H PRN PRN Reason: Nausea and Vomiting Pharmacy Consult (Consult Rx Etoh Phenob Im/Po) 1 each MISCELLANE ONCE PRN; Protocol PRN Reason: Consult order Potassium Phos/Sodium Phos (Sodium,Potassium Phosphates Powd.Pack) 1 packet PO QID [facility] Last Admin: 05/25/23 11:31 Dose: 1 packet Documented By: FRANTZ Sodium Chloride (0.9 % Sodium Chloride Flush 3 Ml Syringe) 3 ml IVFLUSH QSHIFT [facility] Last Admin: 05/25/23 08:26 Dose: 3 ml Documented By: JUAN R Sucralfate (Sucralfate 1 Gm Tablet) 1 gm PO QIDAS [facility] Stop: 05/28/23 16:29 Last Admin: 05/25/23 11:31 Dose: 1 gm Documented By: FRANTZ Labs 05/25/23 06:38 05/25/23 06:38 Labs: Laboratory Results - last 24 hr 05/24/23 05/24/23 05/25/23 16:24 21:03 06:38 MCV 94.3 MCH 31.5 MCHC 33.5 RDW 14.9 Plt Count 203 D MPV 11.1 Absolute Nucleated RBC 0.000 Nucleated RBC % (auto) 0.0 Anion Gap 14 Estim Creat Clear Calc 144.2 Estimated GFR > 60 POC Glucose 283 H 157 H Random Glucose 211 H Calcium 8.0 L Magnesium 1.4 L* 05/25/23 05/25/23 07:32 11:18 MCV MCH MCHC RDW Plt Count MPV Absolute Nucleated RBC Nucleated RBC % (auto) Anion Gap Estim Creat Clear Calc Estimated GFR POC Glucose 246 H 292 H Random Glucose Calcium Magnesium Assessment and Plan (1) Hypokalemia: Status: Acute (2) Hyponatremia: Status: Acute Assessment and Plan: d7 47yo M with DM2, HLD admitted to hospital for syncope due to acute blood loss anemia due to GI bleed, briefly in ICU 05/20-05/21 for hypotension acute blood loss anemia due to GI bleed - transfused 3u pRBCs on admission with appropriate response - EGD by Dr Charles 05/21: Healing esophageal ulcer vs Valarie Weber tear Small esophageal varix Grade A esophagitis Portal hypertensive gastropathy Normal duodenum - UGIB likely from Valarie-Weber tear from retching + vomiting - no NSBB for low-risk small varix; needs repeat EGD in 1 yr for surveillance if continues to drink - pantoprazole 40 mg bid x 4 wk then 20 mg once daily - sucralfate 1g qid x7d - ceftriaxone 7d for infection ppx [can be cipro if discharged before that] - octreotide discontinued AUD with withdrawal - phenobarbital taper completed - declined recovery support hypoMg - replete IV, start PO maintenance, recheck Mg in AM hypoNa - release fluid restriction + d/c NaCl tabs, recheck BMP in AM hypoK hypoMg - repleted DM2 with hyperglycemia - continue Lantus + Humalog leukocytosis - reactive, no signs of infection VTE ppx - SCDs dispo - home with VNA In my clinical judgment, the patient requires continued inpatient hospitalization for the following reasons: electrolyte abnormalities Time Spent With Patient Time: Total time managing care of this patient today ___35_ minutes. Quality Stroke Does the patient have a stroke diagnosis?: No VTE Prior VTE?: No VTE Risk Level:: Medical - moderate - high VTE Device Contraindication: N/A - Device Ordered VTE Drug Contraindication: Treatment Not Tolerated
[2023-05-25 16:00] VITALS: BP 106/64; PULSE 97; RESP 18; TEMP 36.9; O2SAT 97
[2023-05-25 16:41] LABS: Glucose, Whole Blood 288 mg/dL (60-115)
[2023-05-25] MEDS: Magnesium Oxide 400 MG TABLET PO (16:50)
[2023-05-25 20:00] VITALS: BP 117/70; PULSE 94; RESP 14; TEMP 37.1; O2SAT 97
[2023-05-25 20:31] LABS: Glucose, Whole Blood 213 mg/dL (60-115)
[2023-05-26] VITALS (7 sets, daily range): BP systolic 112–137; BP diastolic 60–75; PULSE 88–102; RESP 12–20; TEMP 36.7–37.4; O2SAT 96–99; BMI 27.4
[2023-05-26] MEDS: Omeprazole 40 MG CAPSULE.DR PO ×2 (06:37→16:49)
[2023-05-26 07:55] LABS: Glucose, Whole Blood 223 mg/dL (60-115)
[2023-05-26 08:02] LABS: Alanine Aminotransferase 47 U/L (0-40); Albumin Level 3.1 g/dL (3.5-5.0); Alkaline Phosphatase 166 U/L (39-117); Anion Gap 14 (12-20); Aspartate Amino Transferase 90 U/L (5-37); Bilirubin Total 3.7 mg/dL (0.0-1.0); Blood Urea Nitrogen 5 mg/dL (9-16); Carbon Dioxide 28 mmol/L (22-29); Chloride 91 mmol/L (96-108); Creatinine Clr Calc Pharmacy 151.3; Estimated Glomerular Filt Rate > 60; Glucose Random 220 mg/dL (60-115); Magnesium 1.6 mg/dL (1.6-2.6); Potassium 4.1 mmol/L (3.3-5.1); Sodium 129 mmol/L (135-145); Total Protein 6.7 g/dL (6.5-8.0)
[2023-05-26] MEDS: cefTRIAXone sodium 1 GM in 0.9 % Sodium Chloride 50 ML IV (09:05)
[2023-05-26] MEDS: Insulin Lispro 100 UNIT/ML 3 ML VIAL SUBCUT ×4 (09:07→21:12)
[2023-05-26] MEDS: Sucralfate 1 GM TABLET PO ×4 (09:07→21:12)
[2023-05-26] MEDS: 0.9 % Sodium Chloride Flush 3 ML SYRINGE IVFLUSH ×3 (09:07→21:13)
[2023-05-26] MEDS: Sodium,Potassium Phosphates POWD.PACK 1 PACKET PO ×4 (09:08→21:12)
[2023-05-26] MEDS: Magnesium Oxide 400 MG TABLET PO ×2 (09:08→16:49)
--- NOTE | 2023-05-26 11:15 | MHC.CM.PN ---
EMR REVIEWED, PER MULTIDISCIPLINARY ROUNDS PT WILL REMAIN INPT ONE MORE NIGHT, PT HAS DECLINED HOME SERVICES HE WILL RETURN TO WORK, CM WILL CONT TO FOLLOW DC NEEDS.
[2023-05-26 11:27] LABS: Glucose, Whole Blood 295 mg/dL (60-115)
--- NOTE | 2023-05-26 12:05 | HO.PM.IMPN ---
Subjective Subjective Date of Service: 05/26/23 Interval History: no bleeding tolerating POs This history was taken in Mongolian from the patient. Review of Systems Review of Systems: Yes all other systems are reviewed and are negative Physical Exam Vital Signs: Vital Signs: Last Vital Signs Temp 98.4 F 05/26/23 07:20 Pulse 90 05/26/23 07:20 Resp 20 05/26/23 07:20 BP 112/60 05/26/23 07:20 Pulse Ox 96 05/26/23 07:20 O2 Del Method Room Air 05/26/23 07:20 O2 Flow Rate 1 05/21/23 10:00 FiO2 97 05/23/23 03:29 BMI result Body Mass Index 27.4 Gen: in no acute distress HEENT: sclera anicteric, moist mucus membranes Neck: supple Lungs: clear to auscultation bilaterally Heart: regular rate and rhythm, no murmurs Abd: soft, non-tender, non-distended Ext: no edema Skin: warm/well-perfused Neuro: alert and oriented x3, no focal findings Psych: appropriate affect Objective Data Active Medications Acetaminophen (Acetaminophen 325 Mg Tablet) 650 mg PO Q6H PRN PRN Reason: Pain, Mild (Pain Scale 1-3) Last Admin: 05/23/23 05:34 Dose: 650 mg Documented By: RIKI Benzonatate (Benzonatate 100 Mg Capsule) 100 mg PO TID PRN PRN Reason: Cough Last Admin: 05/21/23 23:29 Dose: 100 mg Documented By: EMMIE Dextrose (Dextrose 50 % 25 Gm/50 Ml Syringe) 25 gm IVPUSH Q15M PRN; Protocol PRN Reason: per Hypoglycemia Standing Ord. Docusate Sodium (Docusate Sodium 100 Mg Capsule) 100 mg PO DAILY PRN PRN Reason: Constipation Glucose (Glucose Gel 15 Gm Gel..Gram.) 15 gm PO Q15M PRN; Protocol PRN Reason: per Hypoglycemia Standing Ord. Insulin Human Lispro (Insulin Lispro 100 Unit/Ml 3 Ml Vial) 0 unit SUBCUT QIDAS [facility]; Protocol Last Admin: 05/26/23 09:07 Dose: 6 unit Documented By: FRANTZ Magnesium Oxide (Magnesium Oxide 400 Mg Tablet) [facility] Last Admin: 05/26/23 09:08 Dose: 400 mg Documented By: FRANTZ Melatonin (Melatonin 3 Mg Tablet) 6 mg PO BEDTIME PRN PRN Reason: Insomnia Last Admin: 05/22/23 20:40 Dose: 6 mg Documented By: RIKI Omeprazole (Omeprazole 40 Mg Capsule.) 40 mg PO BID@0630,1630 [facility] Last Admin: 05/26/23 06:37 Dose: 40 mg Documented By: EMMY Ondansetron HCl (Ondansetron Hcl 4 Mg/2 Ml Vial) 4 mg IVPUSH Q8H PRN PRN Reason: Nausea and Vomiting Pharmacy Consult (Consult Rx Etoh Phenob Im/Po) 1 each MISCELLANE ONCE PRN; Protocol PRN Reason: Consult order Potassium Phos/Sodium Phos (Sodium,Potassium Phosphates Powd.Pack) 1 packet PO QID [facility] Last Admin: 05/26/23 09:08 Dose: 1 packet Documented By: FRANTZ Sodium Chloride (0.9 % Sodium Chloride Flush 3 Ml Syringe) 3 ml IVFLUSH QSHIFT [facility] Last Admin: 05/26/23 09:07 Dose: 3 ml Documented By: FRANTZ Sucralfate (Sucralfate 1 Gm Tablet) 1 gm PO QIDACHS [facility] Stop: 05/28/23 16:29 Last Admin: 05/26/23 09:07 Dose: 1 gm Documented By: FRANTZ Labs 05/25/23 06:38 05/26/23 06:51 Labs: Laboratory Results - last 24 hr 05/25/23 05/25/23 05/26/23 16:30 20:18 06:51 Hold Purple Top SEE NOTE Anion Gap 14 Estim Creat Clear Calc 151.3 Estimated GFR > 60 POC Glucose 288 H 213 H Random Glucose 220 H Calcium 8.0 L Magnesium 1.6 Total Bilirubin 3.7 H AST 90 H ALT 47 H Alkaline Phosphatase 166 H Total Protein 6.7 Albumin 3.1 L 05/26/23 05/26/23 07:24 11:23 Hold Purple Top Anion Gap Estim Creat Clear Calc Estimated GFR POC Glucose 223 H 295 H Random Glucose Calcium Magnesium Total Bilirubin AST ALT Alkaline Phosphatase Total Protein Albumin Assessment and Plan (1) Hypokalemia: Status: Acute (2) Hyponatremia: Status: Acute Assessment and Plan: d8 47yo M with DM2, HLD admitted to hospital for syncope due to acute blood loss anemia due to GI bleed, briefly in ICU 05/20-05/21 for hypotension acute blood loss anemia due to GI bleed - transfused 3u pRBCs on admission with appropriate response - EGD by Dr Charles 05/21: Healing esophageal ulcer vs Valarie Weber tear Small esophageal varix Grade A esophagitis Portal hypertensive gastropathy Normal duodenum - UGIB likely from Valarie-Weber tear from retching + vomiting - no NSBB for low-risk small varix; needs repeat EGD in 1 yr for surveillance if continues to drink - pantoprazole 40 mg bid x 4 wk then 20 mg once daily - sucralfate 1g qid x7d - ceftriaxone 7d for infection ppx [can be cipro if discharged before that] - octreotide discontinued AUD with withdrawal - phenobarbital taper completed - declined recovery support hypoMg - repleted IV and and PO maintenance hypoNa - d/c'ed NaCl tabs, reinstate fluid restriction, recheck BMP in AM hypoK hypoMg - repleted DM2 with hyperglycemia - continue Lantus + Humalog leukocytosis - reactive, no signs of infection VTE ppx - SCDs dispo - home likely tomorrow if Na improved; declines VNA services In my clinical judgment, the patient requires continued inpatient hospitalization for the following reasons: electrolyte abnormalities Time Spent With Patient Time: Total time managing care of this patient today __35__ minutes. Quality Stroke Does the patient have a stroke diagnosis?: No VTE Prior VTE?: No VTE Risk Level:: Medical - moderate - high VTE Device Contraindication: N/A - Device Ordered VTE Drug Contraindication: Treatment Not Tolerated
[2023-05-26 16:36] LABS: Glucose, Whole Blood 232 mg/dL (60-115)
[2023-05-26 20:53] LABS: Glucose, Whole Blood 278 mg/dL (60-115)
[2023-05-27 03:37] VITALS: BP 118/64; PULSE 93; RESP 16; TEMP 36.4; O2SAT 97
[2023-05-27 06:00] VITALS: BMI 27.1
[2023-05-27 07:37] LABS: Anion Gap 14 (12-20); Blood Urea Nitrogen 7 mg/dL (9-16); Calcium 8.2 mg/dL (8.4-10.2); Carbon Dioxide 28 mmol/L (22-29); Chloride 93 mmol/L (96-108); Creatinine Clr Calc Pharmacy 151.3; Estimated Glomerular Filt Rate > 60; Glucose Random 180 mg/dL (60-115); Magnesium 1.5 mg/dL (1.6-2.6); Potassium 4.1 mmol/L (3.3-5.1); Sodium 131 mmol/L (135-145)
[2023-05-27 07:58] VITALS: BP 107/61; PULSE 94; RESP 20; TEMP 36.4; O2SAT 98
[2023-05-27 08:14] LABS: Glucose, Whole Blood 178 mg/dL (60-115)
[2023-05-27] MEDS: Sucralfate 1 GM TABLET PO (08:20)
[2023-05-27] MEDS: Insulin Lispro 100 UNIT/ML 3 ML VIAL SUBCUT (08:25)
[2023-05-27] MEDS: Magnesium Oxide 400 MG TABLET 800 MG PO (08:34)
[2023-05-27] MEDS: 0.9 % Sodium Chloride Flush 3 ML SYRINGE IVFLUSH (08:34)
[2023-05-27] MEDS: Sodium,Potassium Phosphates POWD.PACK 1 PACKET PO (08:34)
[2023-05-27 11:08] VITALS: BP 107/67; PULSE 93; RESP 17; TEMP 36.4; O2SAT 98
[2023-05-27 11:23] LABS: Glucose, Whole Blood 274 mg/dL (60-115)
--- NOTE | 2023-05-27 12:36 | PM.DS ---
DS: Providers Provider Date of Service: 05/27/23 Date of admission: 05/19/23 19:11 Date of discharge: 05/27/23 Primary care physician: Ronn Calvert MD Consults: 05/19/23 19:09 Consult to Gastroenterology Routine Consulting Provider: Sherie Charles Reason for consultation: GI bleed 05/20/23 07:47 Consult to Nephrology Routine Consulting Provider: Jc Correa Reason for consultation: hyponatremia Has provider been notified: No 05/21/23 14:05 Consult to Care Team Stat Comment: Reason for consultation: Alcohol Misuse, Desires Rehabilitation DS: Diagnosis Discharge Diagnosis (1) Hypokalemia: Status: Acute (2) Hyponatremia: Status: Acute (3) Alcoholic hepatitis: Status: Acute (4) Hypotension: Status: Acute (5) Syncope: Status: Acute (6) Hypomagnesemia: Status: Acute (7) Anemia: Status: Acute (8) GI bleed: Status: Acute (9) Valarie-Weber syndrome: Status: Acute (10) Portal hypertension: Status: Acute DS: Summary Hospital Course Hospital Course: From the history and physical by the admitting hospitalist, DIXON Rasheed, 05/19/23: Pt is a Citizen Of [place]-speaking 47-year-old male with a PMH significant for?insulin-dependent diabetes type 2 andHLD who presents to the ED for evaluation of syncopal episodes and vomiting blood. Patient states that symptoms began a few days ago when he started vomiting blood and having dark colored bowel movements. Patient reports 3 separate episodes of hematemesis, and having ?mixed? black and red stool. Patient has also been experiencing lightheadedness and dizziness with standing the past few days. Notes he has fallen twice yesterday and once today. Patient states he hit his head during one fall on a box that hold his change and received a small cut to the back of his head. Denies LOC. patient admits to drinking up to four Downing Lite beers daily. Denies any other alcohol use, hx of smoking, or illicit drug use. Also reports mild abdominal discomfort/tenderness. In the ED patient with temperature up to 99.1, tachycardia up to 117, tachypnea up to 30, hypotension as low as 85/49. Labs were significant for leukocytosis of 12.6, H&H 5.7/15.7, platelets 127, sodium 119, potassium 2.7, chloride 73, anion gap 26, random glucose 368, magnesium 1.3, bilirubin 2.1, direct bilirubin 1.2, AST 100, alk-phos 121, albumin 2.7. Troponin 6.8. UA negative for UTI. Stool positive for occult blood. Ethyl alcohol 181 at 13:17, otherwise tox screen negative. CT of abdomen and pelvis found no evidence of any acute GI bleeding with no and acute inflammatory changes and nonspecific trace free fluid in the pelvis. Liver is normal in size, shape, and attenuation. EKG demonstrated sinus tachycardia of [address] elevations or depressions. Pt was treated with IVF, IV Protonix, octreotide, ondansetron, potassium chloride, Mag sulfate, insulin, and prochlorperazine. Patient also transfused 2 units of PRBCs. Pt will be admitted to the hospital for treatment and further evaluation of acute blood loss anemia and multiple electrolyte abnormalities. 47yo M with DM2, HLD, AUD who was admitted to hospital for syncope due to acute blood loss anemia due to GI bleed, briefly in ICU 05/20-05/21 for hypotension. Hopsital course by problem: acute blood loss anemia due to GI bleed - transfused 3u pRBCs on admission with appropriate response - treated with IV PPI and octreotide and ceftriaxone - EGD by Dr Sherie Charles 05/21: Healing esophageal ulcer vs Valarie Weber tear Small esophageal varix Grade A esophagitis Portal hypertensive gastropathy Normal duodenum - overall, UGIB was likely from Valarie-Weber tear from retching + vomiting - no non-selective beta-ashanti recommended for low-risk small varix; but he needs repeat EGD in 1 yr for surveillance if he continues to drink alcohol - IV -> PO PPI, discharged on pantoprazole 20 mg once daily - sucralfate 1g qid for 2 more days prescribed - should follow up with Dr Charles in 4 weeks for management of alcohol-related liver disease. continue to hold statin until directed otherwise by GI. - should repeat CBC in 1 week AUD with withdrawal alcoholic hepatitis - not given steroids due to GI bleeding - phenobarbital taper completed while hospitalized - declined recovery support; counseled to quit drinking entirely hypoMg - repleted IV and and PO maintenance started; should repeat level in 1 week hypoK - repleted; should repeat level in 1 week hypoNa - fluid-restricted; should repeat level in 1 week with ongoing 1500 mL/d fluid restriction He was discharged home. He declined VNA services/home PT. Time Spent with Patient Time attestation: Total time managing care of this patient today __45__ minutes. Discharge coordination time: Greater than 30 minutes Quality: Safe Use of Opioids Does Pt have an Active Cancer Diagnosis on the Problem List?: No Quality: Stroke Does the patient have a stroke diagnosis?: No Physical Exam Vital Signs: Vital Signs: Last Vital Signs Temp 97.5 F 05/27/23 11:08 Pulse 93 05/27/23 11:08 Resp 17 05/27/23 11:08 BP 107/67 05/27/23 11:08 Pulse Ox 98 05/27/23 11:08 O2 Del Method Room Air 05/27/23 11:08 O2 Flow Rate 1 05/21/23 10:00 FiO2 97 05/23/23 03:29 BMI result Body Mass Index 27.1 Gen: in no acute distress HEENT: sclera anicteric, moist mucus membranes Neck: supple Lungs: clear to auscultation bilaterally Heart: regular rate and rhythm, no murmurs Abd: soft, non-tender, non-distended Ext: no edema Skin: warm/well-perfused Neuro: alert and oriented x3, no focal findings Psych: appropriate affect DS: Data Data Completed and Pending Completed studies during hospitalization [Text1]: Laboratory Results WBC 9.1 X10*3/uL (4.8-10.8) 05/25/23 06:38 RBC 2.79 X10*6/uL (4.60-5.80) L 05/25/23 06:38 Hgb 8.8 g/dl (14.0-18.0) L 05/25/23 06:38 Hct 26.3 % (42.0-52.0) L 05/25/23 06:38 MCV 94.3 fL (80.0-98.0) 05/25/23 06:38 MCH 31.5 pg (27.0-33.0) 05/25/23 06:38 MCHC 33.5 g/dl (31.0-36.0) 05/25/23 06:38 RDW 14.9 % (11.0-16.0) 05/25/23 06:38 Plt Count 203 X10*3/uL (160-400) D 05/25/23 06:38 MPV 11.1 fL (9.4-12.4) 05/25/23 06:38 Immature Gran % (Auto) 0.7 % (0.0-0.4) H 05/22/23 19:13 Neut % (Auto) 75.3 % (45-73) H 05/22/23 19:13 Lymph % (Auto) 10.9 % (20-40) L 05/22/23 19:13 [place] % (Auto) 10.9 % (2-11) 05/22/23 19:13 Eos % (Auto) 1.6 % (0-4) 05/22/23 19:13 Baso % (Auto) 0.6 % (0-2) 05/22/23 19:13 Lymph # (Auto) 1.2 X10*3/uL (1.2-4.9) 05/22/23 19:13 [place] # (Auto) 1.2 X10*3/uL (0.1-1.2) 05/22/23 19:13 Eos # (Auto) 0.2 X10*3/uL (0.0-0.4) 05/22/23 19:13 Baso # (Auto) 0.1 X10*3/uL (0.0-0.2) 05/22/23 19:13 Abs Immat Gran (auto) 0.07 X10*3/uL (0.00-0.03) H 05/22/23 19:13 Absolute Neuts (auto) 8.0 x10*3/uL (2.0-8.3) 05/22/23 19:13 Absolute Nucleated RBC 0.000 X10*3/uL (0.0-0.012) 05/25/23 06:38 Nucleated RBC % (auto) 0.0 /100WBC (0.0-0.2) 05/25/23 06:38 Smear Tech's Comments VERIFIED 05/21/23 19:49 Smear Path Review SEE NOTE 05/19/23 12:53 Hold Purple Top SEE NOTE 05/27/23 06:42 PT 15.5 SEC (11.1-13.3) H 05/21/23 08:41 INR 1.3 (0.9-1.1) H 05/21/23 08:41 APTT 32.4 SEC (26.0-36.4) 05/19/23 13:17 VBG pH 7.60 (7.32-7.43) H* 05/20/23 07:42 VBG pCO2 45 mmHg 05/20/23 07:42 VBG pO2 77 mmHg 05/20/23 07:42 VBG HCO3 45 mmol/L (22-26) H 05/20/23 07:42 VBG O2 Saturation 98.0 % 05/20/23 07:42 VBG Base Excess 21.3 mmol/L 05/20/23 07:42 Sodium 131 mmol/L (135-145) L 05/27/23 06:42 Potassium 4.1 mmol/L (3.3-5.1) 05/27/23 06:42 Chloride 93 mmol/L (96-108) L 05/27/23 06:42 Carbon Dioxide 28 mmol/L (22-29) 05/27/23 06:42 Anion Gap 14 (12-20) 05/27/23 06:42 BUN 7 mg/dL (9-16) L 05/27/23 06:42 Creatinine 0.61 mg/dL (0.5-1.4) 05/27/23 06:42 Estim Creat Clear Calc 151.3 05/27/23 06:42 Estimated GFR > 60 05/27/23 06:42 POC Glucose 274 mg/dL (60-115) H 05/27/23 11:08 Random Glucose 180 mg/dL (60-115) H 05/27/23 06:42 Estimat Average Glucose 126 mg/dL 05/20/23 07:32 Hemoglobin A1c % 6.0 % (<6.0) 05/20/23 07:32 Osmolality 270 mosm/kg (281-305) L 05/20/23 07:32 Calcium 8.2 mg/dL (8.4-10.2) L 05/27/23 06:42 Phosphorus 2.1 mg/dL (2.7-4.5) L 05/22/23 19:13 Magnesium 1.5 mg/dL (1.6-2.6) L 05/27/23 06:42 Total Bilirubin 3.7 mg/dL (0.0-1.0) H 05/26/23 06:51 Direct Bilirubin 2.9 mg/dL (0.0-0.5) H 05/20/23 07:32 AST 90 U/L (5-37) H 05/26/23 06:51 ALT 47 U/L (0-40) H 05/26/23 06:51 Alkaline Phosphatase 166 U/L (39-117) H 05/26/23 06:51 Troponin I High Sens 6.8 ng/L (<3.5-35.0) 05/19/23 13:17 Total Protein 6.7 g/dL (6.5-8.0) 05/26/23 06:51 Albumin 3.1 g/dL (3.5-5.0) L 05/26/23 06:51 Lipase 13 U/L (8-78) 05/19/23 12:53 Beta-Hydroxybutyrate 0.62 mmol/L (0.02-0.27) H 05/20/23 07:32 TSH 0.50 uIU/mL (0.32-4.0) 05/20/23 11:25 Urine Color Yellow 05/19/23 15:52 Urine Appearance Clear 05/19/23 15:52 Urine pH 6.5 (5.0-9.0) 05/19/23 15:52 Ur Specific [place] >= 1.030 (1.005-1.025) H 05/19/23 15:52 Urine Protein Negative mg/dL (Neg-Trace) 05/19/23 15:52 Urine Glucose (UA) 500 mg/dL (Negative) H 05/19/23 15:52 Urine Ketones 15 mg/dL (Negative) 05/19/23 15:52 Urine Blood Trace (Negative) H 05/19/23 15:52 Urine Nitrite Negative (Negative) 05/19/23 15:52 Ur Leukocyte Esterase Negative (Negative) 05/19/23 15:52 Urine RBC 0-2 /HPF (0-2) 05/19/23 15:52 Urine WBC 0-5 /HPF (0-5) 05/19/23 15:52 Ur Squamous Epith Cells 0-2 /HPF (0-2) 05/19/23 15:52 Urine Bacteria None Seen (None Seen) 05/19/23 15:52 Hyaline Casts 0-2 /LPF (0-2) 05/19/23 15:52 Urine Osmolality 443 mosm/kg (373-1093) 05/19/23 15:52 Ur Random Sodium < 20.0 mmol/L 05/19/23 15:52 Ur Random Potassium 17.9 mmol/L 05/19/23 15:52 Ur Random Chloride < 20.0 mmol/L 05/19/23 15:52 Stool Occult Blood POSITIVE (NEGATIVE) 05/19/23 13:20 Urine Opiates Screen Not Detected (Not Detect) 05/19/23 15:52 Urine Fentanyl Screen Not Detected (Not Detect) 05/19/23 15:52 Ur Barbiturates Screen Not Detected (Not Detect) 05/19/23 15:52 Ur Phencyclidine Scrn Not Detected (Not Detect) 05/19/23 15:52 Ur Amphetamines Screen Not Detected (Not Detect) 05/19/23 15:52 U Benzodiazepines Scrn Not Detected (Not Detect) 05/19/23 15:52 Urine Cocaine Screen Not Detected (Not Detect) 05/19/23 15:52 U Marijuana (THC) Screen Not Detected (Not Detect) 05/19/23 15:52 Ethyl Alcohol 181 mg/dL 05/19/23 13:17 Blood Type O Positive 05/22/23 19:13 Antibody Screen NEGATIVE 05/22/23 19:13 Crossmatch See Detail 05/19/23 13:29 Impressions Abdomen/Pelvis CT 05/19/23 14:23 IMPRESSION: No evidence of any active GI bleeding. No acute inflammatory changes. Nonspecific trace free fluid in pelvis. Head CT 05/19/23 21:57 IMPRESSION: No acute intracranial abnormality including hemorrhage, mass effect, hydrocephalus, or acute territorial edematous infarction. Discharge Plan Discharge Anticipated Discharge Date/Time: 05/27/23 12:36 Patient Disposition: Home, Self-Care Discharge Diagnosis: acute blood loss anemia due to GI bleed AUD with withdrawal alcoholic hepatitis hypomagnesemia hyponatremia hypokalemia Referrals: Ronn Calvert MD [Primary Care Provider] - 1 Week Sherie Charles MD [Physician] - 2 Weeks Discharge Medications: New sucralfate 1 gram Tablet 1 g PO QIDACHS Qty: 8 0RF magnesium oxide 400 mg (241.3 mg magnesium) Tablet 800 mg PO BIDPC Qty: 60 0RF pantoprazole 20 mg tablet,delayed release (DR/EC) 20 mg PO DAILY Qty: 30 0RF Continued insulin lispro 100 unit/mL insulin pen See Protocol subcut BIDAC Protocol: Insulin Correction Scale Less than or equal to 110 ---- Give (units): 0 111 to 150 Give (units): 0 151 to 200 Give (units): 2 201 to 250 Give (units): 4 251 to 300 Give (units): 6 301 to 350 Give (units): 8 Greater than 350 Give (units): 10 Call MD if Blood Glucose > : 350 insulin glargine [Lantus Solostar U-100 Insulin] 100 unit/mL (3 mL) insulin pen 52 unit subcut DAILY Held atorvastatin 40 mg tablet 40 mg PO DAILY Hold Instructions: Resume on 06/30/23. Discharge Orders: Discharge Order (Routine); Ordered 05/27/23 Ordered By: Tree Barrett Diet: Diabetic diet Activity on Discharge: As tolerated Stand Alone Forms: Patient Portal Discharge page Other Ambulatory Orders: Complete Blood Count Auto Diff (Routine) Timeframe: 1 Week Facility: [facility] - Location: Laboratory Ordered By: Tree Barrett Comprehensive Met. Panel (Routine) Timeframe: 1 Week Facility: [facility] - Location: Laboratory Ordered By: Tree Barrett Magnesium (Routine) Timeframe: 1 Week Facility: [facility] - Location: Laboratory Ordered By: Tree Barrett Care Plan Goals: abstinence from alcohol liver health Health Concerns: acute blood loss anemia due to GI bleed AUD with withdrawal alcoholic hepatitis hypomagnesemia hyponatremia hypokalemia Plan of Treatment: stop drinking alcohol pantoprazole 20 mg once daily sucralfate 1 g 4x a day for another 2 days magnesium 800 mg 2x a day restrict fluid intake to 1500 mL daily hold atorvastatin until you see Dr Charles repeat labs in 1 week: CBC, CMP, magnesium follow up in 4 weeks with Gastroenterology, Dr Sherie Charles Please follow up with your primary care doctor within 1 week. Return to the hospital if you experience recurrent or worsening symptoms. Assessment: See Discharge Summary.
--- NOTE | 2023-05-27 13:00 | MHC.CM.PN ---
Patient discharged to home self care. Patient will arrange for transport home.
== END 2023-05-27 13:08 | disposition home or self-care (01) | DRG 243 ==
LOC: HO.ED 18:14 → HO.EDOVER 19:20 → HO.IMC 05-20 07:46 → HO.ICU 05-20 10:59 → HO.IMC 05-21 15:53
PROVIDERS: Internal Medicine; Internal Medicine Critical Care Medicine; Admitting Provider Student in an Organized Health Care Education/Training Program; Emergency Provider Emergency Medicine; PCP Internal Medicine Nephrology; Visit Provider Family Medicine
PROC: 0DJ08ZZ Inspection of Upper Intestinal Tract, Via Natural or Artificial Opening Endoscopic (ICD-10-PCS; CPT 43235; principal; 2023-05-21 10:00)
DX: K20.91 Esophagitis, unspecified with bleeding (principal); K22.6 Gastro-esophageal laceration-hemorrhage syndrome; K76.6 Portal hypertension; I85.00 Esophageal varices without bleeding; D62 Acute posthemorrhagic anemia; I95.9 Hypotension, unspecified; E87.1 Hypo-osmolality and hyponatremia; K70.10 Alcoholic hepatitis without ascites; R56.9 Unspecified convulsions; F10.239 Alcohol dependence with withdrawal, unspecified; F10.229 Alcohol dependence with intoxication, unspecified; K31.89 Other diseases of stomach and duodenum; E11.65 Type 2 diabetes mellitus with hyperglycemia; E83.42 Hypomagnesemia; Y90.6 Blood alcohol level of 120-199 mg/100 ml; E87.6 Hypokalemia; E78.5 Hyperlipidemia, unspecified; Z79.4 Long term (current) use of insulin; Z79.899 Other long term (current) drug therapy
CPT/HCPCS: 36415; 70450; 74178; 80048; 80053; 80076; 80307; 81001; 82010; 82040; 82272; 82436; 82803; 82947; 83036; 83690; 83735; 83930; 83935; 84100; 84133; 84300; 84443; 84484; 85014; 85018; 85025; 85027; 85610; 85730; 86850; 86900; 86901; 86923; 92950; 93005; 97116; 97162; 99285; J0613; J0696; J2060; J2354; J2405; J2560; J3010; J3430; J3475; P9016; P9047; Q9967

== ENCOUNTER → 2023-05-19 19:11 | Outpatient (BNV) | payer SELFPAY | PROVIDERS: Admitting Provider Student in an Organized Health Care Education/Training Program; Emergency Provider Emergency Medicine; Visit Provider Internal Medicine | DX: K92.2 Gastrointestinal hemorrhage, unspecified (principal); D64.9 Anemia, unspecified | CPT/HCPCS: 43235; 99223; 99232 ==

== ENCOUNTER → 2023-05-19 19:11 | Outpatient (BNV) | payer SELFPAY | PROVIDERS: Admitting Provider Student in an Organized Health Care Education/Training Program; Emergency Provider Emergency Medicine; Visit Provider Internal Medicine | DX: E87.6 Hypokalemia (principal); E87.1 Hypo-osmolality and hyponatremia; K70.10 Alcoholic hepatitis without ascites; I95.9 Hypotension, unspecified; R55 Syncope and collapse; E83.42 Hypomagnesemia; D64.9 Anemia, unspecified; K92.2 Gastrointestinal hemorrhage, unspecified; K22.6 Gastro-esophageal laceration-hemorrhage syndrome; K76.6 Portal hypertension | CPT/HCPCS: 99223; 99232; 99239 ==

== ENCOUNTER → 2023-05-19 19:11 | Outpatient (BNV) | payer SELFPAY | PROVIDERS: Admitting Provider Student in an Organized Health Care Education/Training Program; Emergency Provider Emergency Medicine; Visit Provider Physician Assistant Medical | DX: K92.2 Gastrointestinal hemorrhage, unspecified (principal); D50.0 Iron deficiency anemia secondary to blood loss (chronic) | CPT/HCPCS: 99291; 99497 ==

== ENCOUNTER 2023-07-11 08:20 | Outpatient (AMB) | payer SELFPAY ==
--- NOTE | 2023-07-11 08:32 | A.OFFVIS_ITS ---
Intake Vital Signs 07/11/23 08:41 Height 5 ft 9 in Weight 167 lb BMI 24.7 BP 103/57 L Blood Pressure Location Lt brachial Position Sitting Pulse 80 Intake Visit Reasons: PT seen by Dr. Charles chronic liver disease Intake Note: Patient new consult for ED follow up for chronic liver disease. Patient denies any GI issues. Marketing Database Consultant Required: Yes Marketing Database Consultant [place] [facility] [place] Accompanied by: Self / Same As Patient Allergies No Known Allergies Allergy (Verified 07/11/23 08:30) Medication List - Last Reconciled 07/11/23 by Alistair Harding MD atorvastatin 40 mg PO DAILY insulin glargine (Lantus Solostar U-100 Insulin) 52 units subcut DAILY insulin lispro See Protocol sliding scale doses subcut BIDAC lisinopril 5 mg PO DAILY pantoprazole 20 mg PO DAILY HPI PT seen by Dr. Charles chronic liver disease HPI Details GI clinic visit for this 47 year old male with DM, HLD and a hx of ETOH abuse for FU of anemia and alcoholic hepatitis after recent [place] [facility] [place] [facility] [place] 05/27/23 with syncopal episodes and vomiting blood. 47yo M with DM2, HLD, AUD who was admitted to hospital for syncope due to acute blood loss anemia due to GI bleed, briefly in ICU 05/20-05/21 for hypotension. Hopsital course by problem: acute blood loss anemia due to GI bleed - transfused 3u pRBCs on admission with appropriate response - treated with IV PPI and octreotide and ceftriaxone - overall, UGIB was likely from Valarie- Weber tear from retching + vomiting - no non-selective beta-ashanti recommen ded for low-risk small varix; but he needs repeat EGD in 1 yr for surveillance if he continues to drink alcohol - IV -> PO PPI, discharged on pantoprazo le 20 mg once daily - sucralfate 1g qid for 2 more days pres cribed - should follow up with Dr Charles in 4 week s for management of alcohol-related live r disease. continue to hold statin until directed otherwise by GI. - should repeat CBC in 1 week AUD with withdrawal alcoholic hepatitis - not given steroids due to GI bleeding - phenobarbital taper completed while ho spitalized - declined recovery support; counseled t o quit drinking entirely He was discharged home. He declined VNA services/home PT. LABS IN [facility] : Reviewed IMAGING STUDIES: 05/19/[address] SCAN SHOWED: No evidence of any active GI bleeding. No acute inflammatory changes. Nonspecific trace free fluid in pelvis. ENDOSCOPIC STUDIES: 05/21/23 EGD SHOWED: EGD Impressions:? * Healing esophageal ulcer vs Valarie Weber tear * Small esophageal varix * Grade A esophagitis * Portal hypertensive gastropathy * Normal duodenum ?? Recommendations:?? * UGIB likely from MWT from retching and vomiting which is now healing * NSBB not recommended for low risk small varix. Will need repeat EGD in 1 year for surveillance if continues to drink. * Can switch PPI to PO. Cont pantoprazole 40 BID x 4 weeks and then 20 once daily * Add liquid carafate 1g QID x 7 days * Cont Ceftriaxone for total of 7 days for infection ppx in this pt with liver disease and GIB. Can switch to PO cipro if discharged before that. * Ok to discontinue octreotide as the bleeding was not from the small varix. * Strong counseling for etOH cessation. Consider addiction med consultation. * TODAY'S VISIT: Hx obtained with the help of [facility] [place] language interpreters, Jessica Pt states he has been doing well since he was discharged from the hospital Denies abdominal pain, black stools or rectal bleeding. Patient denies symptoms of heartburn, dysphagia, change in appetite. Has lost some weight during hsopitalization. Pt stated he has not been drinking - per patient last drink was before hospitalization. Intermittent dizziness flashing lights if he bends over Pt notes a pruritic skin rash. Denies recent change in bowel habits, constipation, diarrhea. Patient denies major cardiac or pulmonary problems, loud snoring or sleep apnea. Denies being on chronic anticoagulation or NSAIDS - takes tylenol prn. Patient denies known family history of colon polyps, colon cancer or other GI malignancies. Pt denies smoking - quitted smoking 10 yrs ago Works making [employer] at [employer] in [place] Lives with his his sister and has one daughter in [facility] PAST GI HISTORY BY REVIEW OF MEDICAL RECORDS: 05/20/23 Pt was seen by Dr Charles: 1. Acute anemia of blood loss: appears t o be 2/2 UGIB. Ddx include MWT sonali given progression of vomiting from nonbloody to bloody, esophagitis, PUD, varices. Bleeding appears to have been self limited as he has had no further episodes in the last 12 hours and appropriate response to blood transfusion. Nonetheless, needs evaluation with upper endoscopy which we will tentatively schedule for tomorrow to allow for correction of electrolyte abnormalities. If pt demonstrates rebleeding, this will need to be expedited. Plan: - Ensue x2 IV access at all times - Active type and screen - Monitor H/H bid - Cont octreotide, ppi and CTX for now - Can have clears today - NPO after MN for egd tmrw Pls page ghislaine if bleeding recurs 2. Alc hep: Meets criteria for alc hep b ased on presentation, LFT pattern and CT appearance of liver. Has borderline MDF of 32.6 however corticosteroids to be held in the setting of ongoing GI bleed and hyperglycemia. Plan: -Please check Hep A IgM and IgG, Hep B c Ab/sAb/sAg, and Hep C Ab -Monitor MELD labs daily including bilir ubin, INR, creatinine, sodium -IV Vit K 10mg already given in ER yest. -No role for checking or trending ammoni a, trend mental status clinically and check daily for asterixis -Abdominal ultrasound with doppler to as sess for biliary obstruction, ascites, and portal or hepatic vein thrombus -Complete infectious work up with blood cultures and CXR - up to 25% of alcoholic hepatitis patients are infected upon admission -Once pt able to take PO, nutrition goal >21kcal/kg/day and 1-1.5g/kg/day of protein- offer nutrition shakes TID to help meet this goal (mortality benefit) -Avoid all NSAIDS [facility] Medical History (Updated 07/11/23 @ 11:19 by Alistair Harding MD) Valarie-Weber syndrome Alcohol abuse Diabetes Family History (Updated 07/11/23 @ 08:41 by Nissa Watson) Father Renal disease Mother Diabetes Cancer of abdomen Social History Household Members: Family Housing: House Do you presently have visiting nurse or other home services: No Alcohol intake: current Patient Tobacco Use Status: Never used Tobacco Second Hand Smoke Exposure: No service: No Review of Systems Const All systems reviewed & are unremarkable except as noted in HPI and below Physical Exam Vital Signs: Last Vital Signs Pulse 80 07/11/23 08:41 BP 103/57 L 12/12/23 08:41 BMI result Body Mass Index 24.7 Const General: healthy appearing and no acute distress Nutritional Appearance: average body habitus Orientation/consciousness: patient oriented x3 Limitations: language barrier HEENT Head: Yes normal to inspection Ears: hearing grossly normal bilaterally Eyes Sclerae: sclerae normal Pupils: Equal, round and reactive pupils present Neck Neck: Yes normal visual inspection Chest Chest palpation & inspection: normal inspection of the chest Resp Effort & Inspection: normal respiratory effort Auscultation: clear to auscultation bilaterally Cardio Palpation: normal PMI Rate: regular rate Rhythm: regular rhythm Heart sounds: S1 normal heart sound present, S2 normal heart sound present and no murmurs GI Palpation (GI): Soft to palpation, nontender and No hepatosplenomegaly present Auscultation: normal bowel sounds Rectal Exam - Male: Yes deferred Skin General skin exam: no rashes or lesions noted Neuro General: patient oriented x3, gait normal and moves all extremities Cranial nerves: Yes Equal, round and reactive pupils present Psych Appearance: grossly normal Mental Status: mental status grossly normal Assessment & Plan Assessment & Plan (1) Elevated LFTs: Code(s): R79.89 - Other specified abnormal findings of blood chemistry (2) Portal hypertension: Code(s): K76.6 - Portal hypertension Plan 47 year old male with DM, HLD and a hx of ETOH abuse seen in the GI clinic for FU of anemia and alcoholic hepatitis after [place] [facility] [place] 05[place]27[place] with syncopal episodes and vomiting blood. Hospital course was complicated by acute blood loss anemia due to GI bleed He was transfused 3u pRBCs with appropriate response and treated with IV PPI and octreotide and ceftriaxone EGD showed a suspected Valarie-Weber tear from retching and 1 small non bleeding varix. Non-selective beta-ashanti were not recommended for low-risk small varix. Pt reports no ETOH use since April,. Pt was advised repeat labs, Hep B and C serologies. Continue Pantoprazole 20 mg daily Magnesium oxide 400 mg twice daily was added due to low Magnesium levels. Repeat EGD in 9 months for varix surveillance FU in 6 weeks Orders: Orders Comprehensive Met. Panel Today R79.89 - Other specified abnormal findings of blood chemistry Prothrombin Time INR Today R79.89 - Other specified abnormal findings of blood chemistry Ferritin Today R79.89 - Other specified abnormal findings of blood chemistry Hepatitis B Surface Antibody Today - Other specified abnormal findings of blood chemistry Hepatitis B Surface Antigen Today - Other specified abnormal findings of blood chemistry Hepatitis C Antibody Today - Other specified abnormal findings of blood chemistry Gamma Glutamyl Transpeptidase Today - Other specified abnormal findings of blood chemistry Complete Blood Count Auto Diff Today - Other specified abnormal findings of blood chemistry Vitamin B12 and Folate Today - Other specified abnormal findings of blood chemistry Vitamin D 25-OH Total Today - Other specified abnormal findings of blood chemistry Hepatitis B Core Antibody Today - Other specified abnormal findings of blood chemistry Hepatitis A IgG Today - Other specified abnormal findings of blood chemistry Magnesium Today - Other specified abnormal findings of blood chemistry Mitochondrial Antibody Today - Other specified abnormal findings of blood chemistry Medications: Changed From pantoprazole 20 mg PO DAILY 30 tabs 0RF To pantoprazole 20 mg PO DAILY 60 days 60 tabs 2RF Coding Level of Care Code Est Pt Level 4 (71970) Diagnoses Elevated LFTs Portal hypertension K76.6 Time Spent (min) 21
[2023-07-11 08:41] VITALS: BP 103/57; PULSE 80; BMI 24.7
== END 2023-07-11 09:05 | disposition home or self-care (01) ==
PROVIDERS: PCP Internal Medicine Nephrology; Visit Provider Internal Medicine Gastroenterology
DX: R79.89 Other specified abnormal findings of blood chemistry (principal); K76.6 Portal hypertension
CPT/HCPCS: 99214

== ENCOUNTER 2023-07-11 08:20 | Outpatient (REF) | payer MEDICAID, OTHER, SELFPAY ==
[2023-07-11 09:40] LABS: MANUAL DIFF FLAG NO
[2023-07-11 10:06] LABS: Basophils Percent Auto 0.6 % (0-2); Eosinophils Absolute Auto 0.1 X10*3/uL (0.0-0.4); Eosinophils Percent Auto 2.2 % (0-4); Hematocrit 33.8 % (42.0-52.0); Imm Gran Abs Auto 0.02 X10*3/uL (0.00-0.03); Imm Gran Pct Auto 0.4 % (0.0-0.4); Lymphocytes Absolute Auto 1.4 X10*3/uL (1.2-4.9); Lymphocytes Percent Auto 28.8 % (20-40); Mean Corpuscular HGB Conc 33.1 g/dl (31.0-36.0); Mean Corpuscular Hemoglobin 28.2 pg (27.0-33.0); Mean Corpuscular Volume 85.1 fL (80.0-98.0); Monocytes Absolute Auto 0.4 X10*3/uL (0.1-1.2); Monocytes Percent Auto 8.9 % (2-11); Neutrophils Absolute Auto 2.9 x10*3/uL (2.0-8.3); Neutrophils Percent Auto 59.1 % (45-73); Platelet Count 136 X10*3/uL (160-400); Red Blood Count 3.97 X10*6/uL (4.60-5.80); Red Cell Distribution Width 14.1 % (11.0-16.0)
[2023-07-11 10:08] LABS: Hemoglobin 11.2 g/dl (14.0-18.0)
[2023-07-11 10:17] LABS: INTERNATIONAL NORM RATIO 1.2 (0.9-1.1); Prothrombin Time 14.3 SEC (11.1-13.3)
[2023-07-11 10:48] LABS: Alanine Aminotransferase 24 U/L (0-40); Albumin Level 3.8 g/dL (3.5-5.0); Alkaline Phosphatase 213 U/L (39-117); Anion Gap 12 (12-20); Aspartate Amino Transferase 36 U/L (5-37); Bilirubin Total 1.4 mg/dL (0.0-1.0); Blood Urea Nitrogen 16 mg/dL (9-16); Carbon Dioxide 26 mmol/L (22-29); Chloride 100 mmol/L (96-108); Estimated Glomerular Filt Rate > 60; Glucose Random 246 mg/dL (60-115); Magnesium 1.4 mg/dL (1.6-2.6); Potassium 4.1 mmol/L (3.3-5.1); Sodium 134 mmol/L (135-145); Total Protein 8.8 g/dL (6.5-8.0)
[2023-07-11 10:54] LABS: HBS Num1 1.37 mIU/mL (0-7.99); HBsAGNum1 0.29 S/CO (0.00-0.99); Hepatitis A Antibody IgG REACTIVE (Nonreactive); Hepatitis B Core Antibody Nonreactive (Nonreactive); Hepatitis B Surface Antigen Negative (Negative); ~HepC Num1 0.26 S/CO (0.00-0.79); ~Hepatitis B Surface Antibody NONREACTIVE (Nonreactive); ~Hepatitis C Antibody Nonreactive (Nonreactive)
[2023-07-11 11:02] LABS: Ferritin 61 ng/mL (20-250); Vitamin D 25-OH Total 11.1 ng/mL (>30)
[2023-07-11 11:06] LABS: Folate 13.3 ng/mL (> or = 4.0); Vitamin B12 1253 pg/mL (200-900)
== END 2023-07-11 08:21 | disposition home or self-care (01) ==
LOC: HO.LAB 08:20
PROVIDERS: Family Medicine; PCP Nurse Practitioner Community Health; Visit Provider Internal Medicine Gastroenterology
DX: K76.6 Portal hypertension (principal); K70.10 Alcoholic hepatitis without ascites; E87.6 Hypokalemia; E87.1 Hypo-osmolality and hyponatremia; R79.89 Other specified abnormal findings of blood chemistry; Z79.899 Other long term (current) drug therapy
CPT/HCPCS: 36415; 80053; 82306; 82607; 82728; 82746; 83735; 85025; 85610; 86704; 86706; 86708; 86803; 87340; 99212